=== PATIENT | male | born 1950 | race Caucasian/White ===

== ENCOUNTER 2018-05-05 20:36 | Emergency (ER) | payer MEDICARE, MEDICAID, SELFPAY ==
[2018-05-05 20:39] VITALS: BP 140/85; PULSE 97; RESP 18; TEMP 36.7; O2SAT 98
[2018-05-05 22:38] VITALS: BP 138/80; PULSE 90; RESP 18; TEMP 36.8; O2SAT 99
--- NOTE | 2018-05-06 01:16 | W.ED.GENAD ---
Discharge Plan Disposition Patient Disposition: HOME Condition: Good Discharge Details Chief Complaint: GI Bleed Clinical Impression: External hemorrhoid, thrombosed Primary Care Provider: Victorino Hedrick ED Provider: Cecil Cruz Home Meds and New Rx's Prescriptions: New hydrocortisone [Anusol-HC] 2.5 % cream with perineal applicator 1 applic ID DAILY Qty: 30 RF: 0 docusate sodium [Colace] 100 mg capsule 100 mg PO BID Qty: 90 RF: 0 No Action solifenacin [Vesicare] 5 MG tablet 10 mg PO DAILY RF: 0 acetaminophen 325 MG tablet 650 mg PO Q4H PRN RF: 0 acetaminophen-codeine 1 EACH tablet 1 ea PO BID PRNRF: 0 tramadol 50 MG tablet 50 mg PO DAILY PRNRF: 0 aspirin 81 MG tablet,chewable 81 mg PO DAILY RF: 0 tamsulosin 0.4 MG capsule 0.8 mg PO HS RF: 0 glimepiride 4 MG tablet 4 mg PO DAILY RF: 0 cyclobenzaprine 10 MG tablet 10 mg PO Q8H PRN PRNRF: 0 naproxen 500 MG tablet 500 mg PO BID PRNRF: 0 mirabegron [Myrbetriq] 25 MG tablet extended release 24 hr 25 mg PO DAILY RF: 0 Discharge Instructions Instructions: Hemorrhoids (ED) Additional Instructions: Please perform sitz baths as often as possible. Please use the cream as directed. Please take the stool softener as directed. Please drink 8-10 cups of water daily to maintain good hydration status. If you notice any worsening of your symptoms, or any new symptoms such as vomiting, diarrhea, fever, chills, shortness of breath, chest pain, numbness, weakness, or fainting , please return immediately to the emergency department for reevaluation. Please follow up with your primary care provider as soon as possible for reassessment and reevaluation. As always, it was a pleasure participating in your medical care today. Referrals: Victorino Hedrick MD [Primary Care Provider] - Discharge Data Discharge Date/Time-TO BE ENTERED AT DEPARTURE: 05/05/18 22:40 Medical Decision Making This is a pleasant 68-year-old male who presents today for evaluation of a protruding mass from his rectum, as well as a small amount of bright red blood with bowel movements and a burning aching sensation in his rectum. Physical exam shows no signs of rectal prolapse, however he does have a large protruding external thrombosed hemorrhoid the size of the patient's thumb in the 3 o'clock position. It is notably tender. There is no active bleeding, no current bright red blood per rectum. Patient is not on any blood thinners, and had a colonoscopy 10 years ago which was benign at that time. We did discuss risks and benefits of medications, and outpatient follow-up for removal of the hemorrhoid, over the patient has elected to have the procedure done now. A bedside incision and drainage was performed of the hemorrhoid. A large clot the size of a grape was removed without complications. No continued active bleeding. The area was numbed and anesthetized previously with let which was applied for 40 minutes. Patient had no pain during the procedure. He tolerated this well. With no active bleeding, normal vital signs, no signs of significant anemia, no signs of significant melena, large amounts of bright red blood per rectum, or other signs or symptoms suggestive of a GI bleed, and a clear source of his symptoms pain and bleeding being his hemorrhoid I feel he can be safely discharged home with close follow-up with his PCP. He will be given Anusol, recommendation for sitz baths, and Colace for continued stool softening. We discussed red flags for which to return, and the patient understands. I have extensively reviewed the treatment plan and discharge instructions with the patient. I have addressed all patient concerns at this time. The patient was made aware of what symptoms to monitor for that would warrant a return to the emergency department. Discussed the plan with the patient, they demonstrate verbal understanding and agreement with our assessment and plan at this time. HPI General Date/Time Provider Initiated Documentation: 05/05/18 22:28. HPI Narrative: This is a 68-year-old male with no significant past medical history except for diabetes, who presents today for evaluation of rectal bleeding. The patient states that about a week ago he was at a concert/event in [place], where he was very dehydrated and had an extremely hard firm bowel movement few days later. Since then he has noticed a very large protruding hemorrhoid coming from his rectum. He had no significant problems with this except for yesterday during a bowel movement he noticed a sharp pain, and then noticed some bright red blood, that was notably worse today with a repeat bowel movement. He is not on any blood thinners, he denies any melanotic stool. He denies any abdominal pain, nausea, vomiting, or diarrhea. He does admit to occasional hard stool still. Last colonoscopy was 10 years ago. Patient does admit to a history of hemorrhoids in the past, but not this bad before. He states that currently the area back there is very painful, and achy. He denies any recent surgeries. He denies any IV or illicit drug use. He has no other complaints at this time. Related Data Home Medications Medication Instructions Recorded Confirmed glimepiride 4 mg PO DAILY 03/03/14 05/06/18 tamsulosin 0.8 mg PO HS 03/03/14 05/06/18 cyclobenzaprine 10 mg PO Q8H PRN PRN 04/16/14 05/06/18 naproxen 500 mg PO BID PRN 10/29/16 05/06/18 mirabegron [Myrbetriq] 25 mg PO DAILY 08/09/17 05/06/18 solifenacin [Vesicare] 10 mg PO DAILY tab-cap 12/10/17 05/06/18 acetaminophen 650 mg PO Q4H PRN tab-cap 01/10/18 05/06/18 acetaminophen-codeine 1 ea PO BID PRN tab 01/10/18 05/06/18 tramadol 50 mg PO DAILY PRN tab 01/10/18 05/06/18 aspirin 81 mg PO DAILY tab.chew 01/15/18 05/06/18 docusate sodium [Colace] 100 mg PO BID #90 cap 05/05/18 05/06/18 hydrocortisone [Anusol-HC] 1 applic ID DAILY #30 gm 05/05/18 05/06/18 Previous Rx's Medication Instructions Recorded docusate sodium [Colace] 100 mg PO BID #90 cap 05/05/18 hydrocortisone [Anusol-HC] 1 applic ID DAILY #30 gm 05/05/18 Allergies Allergy/AdvReac Type Severity Reaction Status Date / Time No Known Allergies Allergy Unverified 05/06/18 20:59 General Stated Complaint: GI Bleed ALFRED: 3 Review of Systems Review of Systems All systems reviewed & are unremarkable except as noted in HPI and below PFSH Medical History Abdominal bloating Anxiety Bladder outlet obstruction Depression Diabetes mellitus, type 2 Diabetes mellitus, type II Entrapment of left ulnar nerve Fatigue History of knee replacement Hx of carpal tunnel syndrome Leukopenia Low back pain Lumbar herniated disc Myofascial pain syndrome Physical deconditioning Seborrheic keratosis Spinal stenosis Spinal stenosis, cervical region Urinary retention Social History Smoking/Tobacco Use Status: Never Surgical History Endoscopic Carpal Tunnel release (11/24/12) Laminectomy, release of tethered cord Replacement of total knee joint Rotator Cuff Repair (08/12/01) Tonsillectomy Ulnar Nerve Transposition (11/24/12) Exam Narrative Exam Narrative: 1.Const: Well-nourished, Well-developed, appearing stated age 2.Eyes: PERRL, no conjunctival injection, and symmetrical lids. No conjunctival pallor 3.ENT: Atraumatic external nose and ears. Moist MM. Neck: Symmetric, trachea midline, No thyromegaly. 4.CVS: +S1/S2, no evidence of tachycardia no murmurs or gallops. Peripheral pulses 2+ and equal in all extremities. Brisk capillary refill in all extremities. 5.RESP: Unlabored respiratory effort. Clear to auscultation bilaterally. No wheezes rales or rhonchi 6.GI: Soft, Nontender/Nondistended, No hepatosplenomegaly. No guarding or rebound. 7.MSK: Normocephalic/Atraumatic, Extremities w/o deformity or ttp No cyanosis or clubbing, Normal movement of all extremities 8.Skin: Warm, Dry. No rashes or lesions. 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 Sensation grossly intact, no focal neurologic deficits. 10.Psych: (AAO) x3. Appropriate mood and affect Rectal exam demonstrates a large thrombosed external hemorrhoid at the 3 o'clock position. It is tender. Rectal exam demonstrates no significant tenderness or hemorrhoid internally. No tenesmus. No bright red blood per rectum. Some old dried blood noted from around the hemorrhoid. Course Vital Signs Temperature 36.7 C 05/05/18 20:39 Pulse 97 H 05/05/18 20:39 Respiratory Rate 18 05/05/18 20:39 Blood Pressure 140/85 05/05/18 20:39 Pulse Oximetry 98 05/05/18 20:39 Temperature 36.8 C 05/05/18 22:38 Temperature Source Skin 05/05/18 20:39 Pulse 90 05/05/18 22:38 Respiratory Rate 18 05/05/18 22:38 Respiratory Effort Non-Labored 05/05/18 20:48 Blood Pressure 138/80 05/05/18 22:38 Blood Pressure Position Sitting 05/05/18 20:39 Pulse Oximetry 99 05/05/18 22:38 Oxygen Delivery Method Room Air 05/05/18 20:39 Oxygen Flow Rate 0 05/05/18 20:39 Pain Level 2 05/05/18 20:39
--- NOTE | 2018-05-06 01:19 | ED.GENADUL_ITS ---
Discharge Plan Disposition Patient Disposition: HOME Condition: Good Discharge Details Chief Complaint: GI Bleed Clinical Impression: External hemorrhoid, thrombosed Primary Care Provider: Victorino Hedrick ED Provider: Cecil Cruz Home Meds and New Rx's Prescriptions: New hydrocortisone [Anusol-HC] 2.5 % cream with perineal applicator 1 applic [place] DAILY Qty: 30 RF: 0 docusate sodium [Colace] 100 mg capsule 100 mg PO BID Qty: 90 RF: 0 No Action solifenacin [Vesicare] 5 MG tablet 10 mg PO DAILY RF: 0 acetaminophen 325 MG tablet 650 mg PO Q4H PRN RF: 0 acetaminophen-codeine 1 EACH tablet 1 ea PO BID PRNRF: 0 tramadol 50 MG tablet 50 mg PO DAILY PRNRF: 0 aspirin 81 MG tablet,chewable 81 mg PO DAILY RF: 0 tamsulosin 0.4 MG capsule 0.8 mg PO HS RF: 0 glimepiride 4 MG tablet 4 mg PO DAILY RF: 0 cyclobenzaprine 10 MG tablet 10 mg PO Q8H PRN PRNRF: 0 naproxen 500 MG tablet 500 mg PO BID PRNRF: 0 mirabegron [Myrbetriq] 25 MG tablet extended release 24 hr 25 mg PO DAILY RF: 0 Discharge Instructions Instructions: Hemorrhoids (ED) Additional Instructions: Please perform sitz baths as often as possible. Please use the cream as directed. Please take the stool softener as directed. Please drink 8-10 cups of water daily to maintain good hydration status. If you notice any worsening of your symptoms, or any new symptoms such as vomiting, diarrhea, fever, chills , shortness of breath, chest pain, numbness, weakness, or fainting , please return immediately to the emergency department for reevaluation. Please follow up with your primary care provider as soon as possible for reassessment and reevaluation. As always, it was a pleasure participating in your medical care today. Referrals: Victorino Hedrick MD [Primary Care Provider] - Discharge Data Discharge Date/Time-TO BE ENTERED AT DEPARTURE: 05/05/18 22:40 Medical Decision Making This is a pleasant 68-year-old male who presents today for evaluation of a protruding mass from his rectum, as well as a small amount of bright red blood with bowel movements and a burning aching sensation in his rectum. Physical exam shows no signs of rectal prolapse, however he does have a large protruding external thrombosed hemorrhoid the size of the patient's thumb in the 3 o'clock position. It is notably tender. There is no active bleeding, no current bright red blood per rectum. Patient is not on any blood thinners, and had a colonoscopy 10 years ago which was benign at that time. We did discuss risks and benefits of medications, and outpatient follow-up for removal of the hemorrhoid, over the patient has elected to have the procedure done now. A bedside incision and drainage was performed of the hemorrhoid. A large clot the size of a grape was removed without complications. No continued active bleeding. The area was numbed and anesthetized previously with let which was applied for 40 minutes. Patient had no pain during the procedure. He tolerated this well. With no active bleeding, normal vital signs, no signs of significant anemia, no signs of significant melena, large amounts of bright red blood per rectum, or other signs or symptoms suggestive of a GI bleed, and a clear source of his symptoms pain and bleeding being his hemorrhoid I feel he can be safely discharged home with close follow-up with his PCP. He will be given Anusol, recommendation for sitz baths, and Colace for continued stool softening. We discussed red flags for which to return, and the patient understands. I have extensively reviewed the treatment plan and discharge instructions with the patient. I have addressed all patient concerns at this time. The patient was made aware of what symptoms to monitor for that would warrant a return to the emergency department. Discussed the plan with the patient, they demonstrate verbal understanding and agreement with our assessment and plan at this time. HPI General Date/Time Provider Initiated Documentation: 05/05/18 22:28 . HPI Narrative: This is a 68-year-old male with no significant past medical history except for diabetes, who presents today for evaluation of rectal bleeding. The patient states that about a week ago he was at a concert/ event in [place], where he was very dehydrated and had an extremely hard firm bowel movement few days later. Since then he has noticed a very large protruding hemorrhoid coming from his rectum. He had no significant problems with this except for yesterday during a bowel movement he noticed a sharp pain, and then noticed some bright red blood, that was notably worse today with a repeat bowel movement. He is not on any blood thinners, he denies any melanotic stool. He denies any abdominal pain, nausea, vomiting, or diarrhea. He does admit to occasional hard stool still. Last colonoscopy was 10 years ago. Patient does admit to a history of hemorrhoids in the past, but not this bad before. He states that currently the area back there is very painful, and achy. He denies any recent surgeries. He denies any IV or illicit drug use. He has no other complaints at this time. Related Data Home Medications Medication Instructions Recorded Confirmed glimepiride 4 mg PO DAILY 03/03/14 05/06/18 tamsulosin 0.8 mg PO HS 03/03/14 05/06/18 cyclobenzaprine 10 mg PO Q8H PRN PRN 04/16/14 05/06/18 naproxen 500 mg PO BID PRN 10/29/16 05/06/18 mirabegron [Myrbetriq] 25 mg PO DAILY 08/09/17 05/06/18 solifenacin [Vesicare] 10 mg PO DAILY tab-cap 12/10/17 05/06/18 acetaminophen 650 mg PO Q4H PRN tab-cap 01/10/18 05/06/18 acetaminophen-codeine 1 ea PO BID PRN tab 01/10/18 05/06/18 tramadol 50 mg PO DAILY PRN tab 01/10/18 05/06/18 aspirin 81 mg PO DAILY tab.chew 01/15/18 05/06/18 docusate sodium [Colace] 100 mg PO BID #90 cap 05/05/18 05/06/18 hydrocortisone [Anusol-HC] 1 applic [place] DAILY #30 gm 05/05/18 05/06/18 Previous Rx's Medication Instructions Recorded docusate sodium [Colace] 100 mg PO BID #90 cap 05/05/18 hydrocortisone [Anusol-HC] 1 applic [place] DAILY #30 gm 05/05/18 Allergies Allergy/AdvReac Type Severity Reaction Status Date / Time No Known Allergies Allergy Unverified 05/06/18 20:59 General Stated Complaint: GI Bleed ALFRED: 3 Review of Systems Review of Systems All systems reviewed & are unremarkable except as noted in HPI and below PFSH Medical History Abdominal bloating Anxiety Bladder outlet obstruction Depression Diabetes mellitus, type 2 Diabetes mellitus, type II Entrapment of left ulnar nerve Fatigue History of knee replacement Hx of carpal tunnel syndrome Leukopenia Low back pain Lumbar herniated disc Myofascial pain syndrome Physical deconditioning Seborrheic keratosis Spinal stenosis Spinal stenosis, cervical region Urinary retention Social History Smoking/Tobacco Use Status: Never Surgical History Endoscopic Carpal Tunnel release (11/24/12) Laminectomy, release of tethered cord Replacement of total knee joint Rotator Cuff Repair (08/12/01) Tonsillectomy Ulnar Nerve Transposition (11/24/12) Exam Narrative Exam Narrative: 1.Const: Well-nourished, Well-developed, appearing stated age 2.Eyes: PERRL, no conjunctival injection, and symmetrical lids. No conjunctival pallor 3.ENT: Atraumatic external nose and ears. Moist MM. Neck: Symmetric, trachea midline, No thyromegaly. 4.CVS: +S1/S2, no evidence of tachycardia no murmurs or gallops. Peripheral pulses 2+ and equal in all extremities. Brisk capillary refill in all extremities. 5.RESP: Unlabored respiratory effort. Clear to auscultation bilaterally. No wheezes rales or rhonchi 6.GI: Soft, Nontender/Nondistended, No hepatosplenomegaly. No guarding or rebound. 7.MSK: Normocephalic/Atraumatic, Extremities w/o deformity or ttp No cyanosis or clubbing, Normal movement of all extremities 8.Skin: Warm, Dry. No rashes or lesions. 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 Sensation grossly intact, no focal neurologic deficits. 10.Psych: (AAO) x3. Appropriate mood and affect Rectal exam demonstrates a large thrombosed external hemorrhoid at the 3 o' clock position. It is tender. Rectal exam demonstrates no significant tenderness or hemorrhoid internally. No tenesmus. No bright red blood per rectum. Some old dried blood noted from around the hemorrhoid. Course Vital Signs Temperature 36.7 C 05/05/18 20:39 Pulse 97 H 05/05/18 20:39 Respiratory Rate 18 05/05/18 20:39 Blood Pressure 140/85 05/05/18 20:39 Pulse Oximetry 98 05/05/18 20:39 Temperature 36.8 C 05/05/18 22:38 Temperature Source Skin 05/05/18 20:39 Pulse 90 05/05/18 22:38 Respiratory Rate 18 05/05/18 22:38 Respiratory Effort Non-Labored 05/05/18 20:48 Blood Pressure 138/80 05/05/18 22:38 Blood Pressure Position Sitting 05/05/18 20:39 Pulse Oximetry 99 05/05/18 22:38 Oxygen Delivery Method Room Air 05/05/18 20:39 Oxygen Flow Rate 0 05/05/18 20:39 Pain Level 2 05/05/18 20:39
== END 2018-05-05 22:40 | disposition home or self-care (01) ==
PROVIDERS: Emergency Provider Student in an Organized Health Care Education/Training Program; PCP Internal Medicine
DX: K64.5 Perianal venous thrombosis (principal); E11.9 Type 2 diabetes mellitus without complications; Z79.84 Long term (current) use of oral hypoglycemic drugs
CPT/HCPCS: 10140

== ENCOUNTER 2018-05-06 20:54 | Emergency (ER) | payer MEDICARE, MEDICAID, SELFPAY ==
[2018-05-06 20:57] VITALS: PULSE 94; RESP 18; TEMP 37.1; O2SAT 98
--- NOTE | 2018-05-06 21:09 | W.ED.GENAD ---
Discharge Plan Disposition Patient Disposition: HOME Condition: Good Discharge Details Chief Complaint: Recheck Clinical Impression: Hemorrhoid Primary Care Provider: Victorino Hedrick ED Provider: Cecil Cruz Home Meds and New Rx's Prescriptions: No Action solifenacin [Vesicare] 5 MG tablet 10 mg PO DAILY RF: 0 acetaminophen 325 MG tablet 650 mg PO Q4H PRN RF: 0 acetaminophen-codeine 1 EACH tablet 1 ea PO BID PRNRF: 0 tramadol 50 MG tablet 50 mg PO DAILY PRNRF: 0 aspirin 81 MG tablet,chewable 81 mg PO DAILY RF: 0 tamsulosin 0.4 MG capsule 0.8 mg PO HS RF: 0 glimepiride 4 MG tablet 4 mg PO DAILY RF: 0 cyclobenzaprine 10 MG tablet 10 mg PO Q8H PRN PRNRF: 0 naproxen 500 MG tablet 500 mg PO BID PRNRF: 0 mirabegron [Myrbetriq] 25 MG tablet extended release 24 hr 25 mg PO DAILY RF: 0 hydrocortisone [Anusol-HC] 2.5 % cream with perineal applicator 1 applic SC DAILY Qty: 30 RF: 0 docusate sodium [Colace] 100 mg capsule 100 mg PO BID Qty: 90 RF: 0 Discharge Instructions Instructions: Hemorrhoids (ED), Rectal Bleeding (ED) Additional Instructions: Please use the Surgicel as directed. Please follow-up with your primary care provider as soon as possible for reassessment. If you notice any worsening of your symptoms, or any new symptoms such as vomiting, diarrhea, fever, chills, shortness of breath, chest pain, numbness, weakness, or fainting , please return immediately to the emergency department for reevaluation. Please follow up with your primary care provider as soon as possible for reassessment and reevaluation. As always, it was a pleasure participating in your medical care today. Referrals: Victorino Hedrick MD [Primary Care Provider] - Medical Decision Making This is a 68-year-old male with medical history significant for a recently incised thrombosed hemorrhoid. He had some very mild continued bleeding since then. No hemorrhage. No evidence of active bleeding on my exam. The patient continues to demonstrate normal vital signs, no tachycardia, no evidence of pale conjunctiva, no signs of significant anemia. We will get the patient Surgicel for home use, and some more 4 x 4's, and continue recommendation for follow-up with his PCP, as well as continued use of the prescribed steroid cream. We discussed red flags which return the patient understands. I have extensively reviewed the treatment plan and discharge instructions with the patient. I have addressed all patient concerns at this time. The patient was made aware of what symptoms to monitor for that would warrant a return to the emergency department. Discussed the plan with the patient, they demonstrate verbal understanding and agreement with our assessment and plan at this time. HPI General Date/Time Provider Initiated Documentation: 05/06/18 21:01. HPI Narrative: This is a very pleasant 68-year-old male with past medical history of hypertension, constipation, who presents today for reevaluation of hemorrhoid. Patient was here in the emergency department last night, with a very large painful thrombosed hemorrhoid. Bedside incision and drainage was performed and a very large clot was exuded. Patient was then discharged home with pads, gauze, and instructions for follow-up. Throughout the day he has had a very mild continued amount of subtle bleeding. He called the ER this evening, and wanted to know if he should be checked out or not. We recommended for him to come in for evaluation. He denies any lightheadedness, syncope, fainting, fatigue, significant bleeding, hemorrhage, or clots. Bleeding was only noticed on the small amount of 4 x 4 pads he had placed back there. He states that his pain is completely resolved at this point. The patient does take aspirin, but does not take any other blood thinners. Patient denies any recent surgeries, he denies any pertinent family history, he denies any IV or illicit drug use. He has no other complaints at this time. Related Data Home Medications Medication Instructions Recorded Confirmed glimepiride 4 mg PO DAILY 03/03/14 05/06/18 tamsulosin 0.8 mg PO HS 03/03/14 05/06/18 cyclobenzaprine 10 mg PO Q8H PRN PRN 04/16/14 05/06/18 naproxen 500 mg PO BID PRN 10/29/16 05/06/18 mirabegron [Myrbetriq] 25 mg PO DAILY 08/09/17 05/06/18 solifenacin [Vesicare] 10 mg PO DAILY tab-cap 12/10/17 05/06/18 acetaminophen 650 mg PO Q4H PRN tab-cap 01/10/18 05/06/18 acetaminophen-codeine 1 ea PO BID PRN tab 01/10/18 05/06/18 tramadol 50 mg PO DAILY PRN tab 01/10/18 05/06/18 aspirin 81 mg PO DAILY tab.chew 01/15/18 05/06/18 docusate sodium [Colace] 100 mg PO BID #90 cap 05/05/18 05/06/18 hydrocortisone [Anusol-HC] 1 applic SC DAILY #30 gm 05/05/18 05/06/18 Previous Rx's Medication Instructions Recorded docusate sodium [Colace] 100 mg PO BID #90 cap 05/05/18 hydrocortisone [Anusol-HC] 1 applic SC DAILY #30 gm 05/05/18 Allergies Allergy/AdvReac Type Severity Reaction Status Date / Time No Known Allergies Allergy Unverified 05/06/18 20:59 General Stated Complaint: Recheck ALFRED: 5 Review of Systems Review of Systems 10 point review of systems was performed, pertinent positives and negatives are noted in the history of present illness. PFSH Medical History Abdominal bloating Anxiety Bladder outlet obstruction Depression Diabetes mellitus, type 2 Diabetes mellitus, type II Entrapment of left ulnar nerve Fatigue History of knee replacement Hx of carpal tunnel syndrome Leukopenia Low back pain Lumbar herniated disc Myofascial pain syndrome Physical deconditioning Seborrheic keratosis Spinal stenosis Spinal stenosis, cervical region Urinary retention Social History Smoking/Tobacco Use Status: Never Surgical History Endoscopic Carpal Tunnel release (11/24/12) Laminectomy, release of tethered cord Replacement of total knee joint Rotator Cuff Repair (08/12/01) Tonsillectomy Ulnar Nerve Transposition (11/24/12) Exam Narrative Exam Narrative: 1.Const: Well-nourished, Well-developed, appearing stated age 2.Eyes: PERRL, no conjunctival injection, no evidence of pale conjunctiva, and symmetrical lids. 3.ENT: Atraumatic external nose and ears. Moist MM. Neck: Symmetric, trachea midline, No thyromegaly. 4.CVS: +S1/S2, No murmurs or gallops. No evidence of tachycardia peripheral pulses 2+ and equal in all extremities. Brisk capillary refill in all extremities. 5.RESP: Unlabored respiratory effort. Clear to auscultation bilaterally. No wheezes rales or rhonchi 6.GI: Soft, Nontender/Nondistended, No hepatosplenomegaly. No guarding or rebound. 7.MSK: Normocephalic/Atraumatic, Extremities w/o deformity or ttp No cyanosis or clubbing, Normal movement of all extremities 8.Skin: Warm, Dry. No rashes or lesions. 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 Sensation grossly intact, no focal neurologic deficits. 10.Psych: (AAO) x3. Appropriate mood and affect Rectal exam demonstrates evidence of a previously incised and drained hemorrhoid, no active bleeding. No evidence of bleeding at this time. Some dried blood noted on the 4 x 4 pads on the patient's rectal area. No tenderness. Course Vital Signs Temperature 37.1 C 05/06/18 20:57 Pulse 94 H 05/06/18 20:57 Respiratory Rate 18 05/06/18 20:57 Pulse Oximetry 98 05/06/18 20:57 Temperature 37.1 C 05/06/18 20:57 Temperature Source Temporal Artery Scan 05/06/18 20:57 Pulse 94 H 05/06/18 20:57 Respiratory Rate 18 05/06/18 20:57 Pulse Oximetry 98 05/06/18 20:57 Oxygen Delivery Method Room Air 05/06/18 20:57 Oxygen Flow Rate 0 05/06/18 20:57 End Tidal Co2 145 05/06/18 20:57 Pain Level 0 05/06/18 20:57
--- NOTE | 2018-05-06 21:18 | ED.GENADUL_ITS ---
Discharge Plan Disposition Patient Disposition: HOME Condition: Good Discharge Details Chief Complaint: Recheck Clinical Impression: Hemorrhoid Primary Care Provider: Victorino Hedrick ED Provider: Cecil Cruz Home Meds and New Rx's Prescriptions: No Action solifenacin [Vesicare] 5 MG tablet 10 mg PO DAILY RF: 0 acetaminophen 325 MG tablet 650 mg PO Q4H PRN RF: 0 acetaminophen-codeine 1 EACH tablet 1 ea PO BID PRNRF: 0 tramadol 50 MG tablet 50 mg PO DAILY PRNRF: 0 aspirin 81 MG tablet,chewable 81 mg PO DAILY RF: 0 tamsulosin 0.4 MG capsule 0.8 mg PO HS RF: 0 glimepiride 4 MG tablet 4 mg PO DAILY RF: 0 cyclobenzaprine 10 MG tablet 10 mg PO Q8H PRN PRNRF: 0 naproxen 500 MG tablet 500 mg PO BID PRNRF: 0 mirabegron [Myrbetriq] 25 MG tablet extended release 24 hr 25 mg PO DAILY RF: 0 hydrocortisone [Anusol-HC] 2.5 % cream with perineal applicator 1 applic CO DAILY Qty: 30 RF: 0 docusate sodium [Colace] 100 mg capsule 100 mg PO BID Qty: 90 RF: 0 Discharge Instructions Instructions: Hemorrhoids (ED), Rectal Bleeding (ED) Additional Instructions: Please use the Surgicel as directed. Please follow-up with your primary care provider as soon as possible for reassessment. If you notice any worsening of your symptoms, or any new symptoms such as vomiting, diarrhea, fever, chills, shortness of breath, chest pain, numbness, weakness, or fainting , please return immediately to the emergency department for reevaluation. Please follow up with your primary care provider as soon as possible for reassessment and reevaluation. As always, it was a pleasure participating in your medical care today. Referrals: Victorino Hedrick MD [Primary Care Provider] - Medical Decision Making This is a 68-year-old male with medical history significant for a recently incised thrombosed hemorrhoid. He had some very mild continued bleeding since then. No hemorrhage. No evidence of active bleeding on my exam. The patient continues to demonstrate normal vital signs, no tachycardia, no evidence of pale conjunctiva, no signs of significant anemia. We will get the patient Surgicel for home use, and some more 4 x 4's, and continue recommendation for follow-up with his PCP, as well as continued use of the prescribed steroid cream. We discussed red flags which return the patient understands. I have extensively reviewed the treatment plan and discharge instructions with the patient. I have addressed all patient concerns at this time. The patient was made aware of what symptoms to monitor for that would warrant a return to the emergency department. Discussed the plan with the patient, they demonstrate verbal understanding and agreement with our assessment and plan at this time. HPI General Date/Time Provider Initiated Documentation: 05/06/18 21:01 . HPI Narrative: This is a very pleasant 68-year-old male with past medical history of hypertension, constipation, who presents today for reevaluation of hemorrhoid. Patient was here in the emergency department last night, with a very large painful thrombosed hemorrhoid. Bedside incision and drainage was performed and a very large clot was exuded. Patient was then discharged home with pads, gauze, and instructions for follow-up. Throughout the day he has had a very mild continued amount of subtle bleeding. He called the ER this evening, and wanted to know if he should be checked out or not. We recommended for him to come in for evaluation. He denies any lightheadedness, syncope, fainting, fatigue, significant bleeding, hemorrhage, or clots. Bleeding was only noticed on the small amount of 4 x 4 pads he had placed back there. He states that his pain is completely resolved at this point. The patient does take aspirin, but does not take any other blood thinners. Patient denies any recent surgeries, he denies any pertinent family history, he denies any IV or illicit drug use. He has no other complaints at this time. Related Data Home Medications Medication Instructions Recorded Confirmed glimepiride 4 mg PO DAILY 03/03/14 05/06/18 tamsulosin 0.8 mg PO HS 03/03/14 05/06/18 cyclobenzaprine 10 mg PO Q8H PRN PRN 04/16/14 05/06/18 naproxen 500 mg PO BID PRN 10/29/16 05/06/18 mirabegron [Myrbetriq] 25 mg PO DAILY 08/09/17 05/06/18 solifenacin [Vesicare] 10 mg PO DAILY tab-cap 12/10/17 05/06/18 acetaminophen 650 mg PO Q4H PRN tab-cap 01/10/18 05/06/18 acetaminophen-codeine 1 ea PO BID PRN tab 01/10/18 05/06/18 tramadol 50 mg PO DAILY PRN tab 01/10/18 05/06/18 aspirin 81 mg PO DAILY tab.chew 01/15/18 05/06/18 docusate sodium [Colace] 100 mg PO BID #90 cap 05/05/18 05/06/18 hydrocortisone [Anusol-HC] 1 applic CO DAILY #30 gm 05/05/18 05/06/18 Previous Rx's Medication Instructions Recorded docusate sodium [Colace] 100 mg PO BID #90 cap 05/05/18 hydrocortisone [Anusol-HC] 1 applic CO DAILY #30 gm 05/05/18 Allergies Allergy/AdvReac Type Severity Reaction Status Date / Time No Known Allergies Allergy Unverified 05/06/18 20:59 General Stated Complaint: Recheck ALFRED: 5 Review of Systems Review of Systems 10 point review of systems was performed, pertinent positives and negatives are noted in the history of present illness. PFSH Medical History Abdominal bloating Anxiety Bladder outlet obstruction Depression Diabetes mellitus, type 2 Diabetes mellitus, type II Entrapment of left ulnar nerve Fatigue History of knee replacement Hx of carpal tunnel syndrome Leukopenia Low back pain Lumbar herniated disc Myofascial pain syndrome Physical deconditioning Seborrheic keratosis Spinal stenosis Spinal stenosis, cervical region Urinary retention Social History Smoking/Tobacco Use Status: Never Surgical History Endoscopic Carpal Tunnel release (11/24/12) Laminectomy, release of tethered cord Replacement of total knee joint Rotator Cuff Repair (08/12/01) Tonsillectomy Ulnar Nerve Transposition (11/24/12) Exam Narrative Exam Narrative: 1.Const: Well-nourished, Well-developed, appearing stated age 2.Eyes: PERRL, no conjunctival injection, no evidence of pale conjunctiva, and symmetrical lids. 3.ENT: Atraumatic external nose and ears. Moist MM. Neck: Symmetric, trachea midline, No thyromegaly. 4.CVS: +S1/S2, No murmurs or gallops. No evidence of tachycardia peripheral pulses 2+ and equal in all extremities. Brisk capillary refill in all extremities. 5.RESP: Unlabored respiratory effort. Clear to auscultation bilaterally. No wheezes rales or rhonchi 6.GI: Soft, Nontender/Nondistended, No hepatosplenomegaly. No guarding or rebound. 7.MSK: Normocephalic/Atraumatic, Extremities w/o deformity or ttp No cyanosis or clubbing, Normal movement of all extremities 8.Skin: Warm, Dry. No rashes or lesions. 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 Sensation grossly intact, no focal neurologic deficits. 10.Psych: (AAO) x3. Appropriate mood and affect Rectal exam demonstrates evidence of a previously incised and drained hemorrhoid , no active bleeding. No evidence of bleeding at this time. Some dried blood noted on the 4 x 4 pads on the patient's rectal area. No tenderness. Course Vital Signs Temperature 37.1 C 05/06/18 20:57 Pulse 94 H 05/06/18 20:57 Respiratory Rate 18 05/06/18 20:57 Pulse Oximetry 98 05/06/18 20:57 Temperature 37.1 C 05/06/18 20:57 Temperature Source Temporal Artery Scan 05/06/18 20:57 Pulse 94 H 05/06/18 20:57 Respiratory Rate 18 05/06/18 20:57 Pulse Oximetry 98 05/06/18 20:57 Oxygen Delivery Method Room Air 05/06/18 20:57 Oxygen Flow Rate 0 05/06/18 20:57 End Tidal Co2 145 05/06/18 20:57 Pain Level 0 05/06/18 20:57
[2018-05-06 21:57] VITALS: PULSE 94; RESP 18; TEMP 37.1; O2SAT 98
[2018-05-06] MEDS: Cellulose,Oxidized 2X3 PKT 5 EACH MC (21:57)
== END 2018-05-06 21:59 | disposition home or self-care (01) ==
PROVIDERS: Emergency Provider Student in an Organized Health Care Education/Training Program; PCP Internal Medicine
DX: K64.9 Unspecified hemorrhoids (principal); Y84.8 Other medical procedures as the cause of abnormal reaction of the patient, or of later complication, without mention of misadventure at the time of the procedure; E11.9 Type 2 diabetes mellitus without complications; Z79.84 Long term (current) use of oral hypoglycemic drugs; I10 Essential (primary) hypertension
CPT/HCPCS: 99282

== ENCOUNTER 2018-06-26 00:35 | Outpatient (CLI) | payer MEDICARE, MEDICAID, SELFPAY ==
--- NOTE | 2018-06-26 15:04 | DI.MRI_ITS ---
SYMPTOM/DIAGNOSIS: BACK PAIN, SPONDYLOSIS, S/P TETHERED CORD REPAIR LUMBAR SPINE MRI: Comparison is made with 02/22/14. Noncontrast MRI of the lumbar spine was performed. The conus medullaris is unchanged and terminates at the L 4 level. This is unchanged compared to the prior examination. There does again appear to be a fatty filum terminale. At L 5-S 1, there is no focal disc herniation, central spinal canal or neural foraminal stenosis present. At L 4-5, there is again seen mild spondylolisthesis present. There is disc desiccation. There is a small central disc herniation. There are post surgical changes of an L 4 laminectomy. Moderately severe central spinal canal stenosis is present. There does appear to be some displacement of the L 5 nerve roots bilaterally. There is bilateral mild to moderate neural foraminal stenosis. At L 3-4, there is disc desiccation. Endplate degenerative changes and osteophytes are present. There is a disc herniation extruding posterior to the L 4 vertebral body. It does appear to compress the L 4 nerve roots bilaterally. There is a diffuse disc bulge and hypertrophic changes of the facets seen. There is mild narrowing of the central spinal canal. There is moderate bilateral neural foraminal stenosis. At L 2-3, there is degenerative disc disease with endplate osteophytes and endplate degenerative signal changes. Mild narrowing of the central spinal canal is noted. No significant neural foraminal stenosis is seen. At L 1-2. there is no focal disc herniation, central spinal canal or neural foraminal stenosis. Incidental note is made of bilateral renal parapelvic cysts. These were present on ultrasound of the abdomen from 10/14/17. Apart from the degenerative signal change, marrow signal is within normal limits. IMPRESSION: 1. Disc herniation at L 3-4 with extrusion posterior to the L 4 vertebral body compressing the L 4 nerve roots bilaterally. 2. Degenerative changes at L 4-5 causing central spinal canal and neural foraminal stenosis. 3. Multi level degenerative changes in the lumbar spine as described above. 4. Post laminectomy changes at L 4, stable. Location of the conus medullaris posterior to the L 4 vertebral body.
== END 2018-06-26 00:55 ==
PROVIDERS: PCP Internal Medicine; Visit Provider Anesthesiology Pain Medicine
DX: M54.5 Low back pain (principal); M51.16 Intervertebral disc disorders with radiculopathy, lumbar region; M51.36 Other intervertebral disc degeneration, lumbar region; M48.061 Spinal stenosis, lumbar region without neurogenic claudication
CPT/HCPCS: 72148

== ENCOUNTER 2018-07-17 17:15 | Outpatient (REF) | payer MEDICARE, MEDICAID, SELFPAY ==
[2018-07-17 22:44] LABS: Anion Gap 6.1 mmol/L (3-11); BUN 17 mg/dL (7-18); CO2 28.9 mmol/L (21.0-32.0); CREATININE 0.95 mg/dL (0.70-1.30); Calcium 8.7 mg/dL (8.5-10.1); Chloride 103 mmol/L (98-107); Cholesterol 220 mg/dL (50-200); Glucose 140 mg/dL (70-100); HDL Cholesterol 40 mg/dL (40-60); LDL CHOLESTEROL 157 mg/dL (<100); Sodium 138 mmol/L (136-145); Triglyceride 237 mg/dL (30-150)
[2018-07-19 11:25] LABS: Hepatitis C Ab w Rflx HCV PCR Negative (NEGAT)
== END 2018-07-17 17:35 ==
LOC: NCHCN 17:15
PROVIDERS: PCP Internal Medicine; Visit Provider Internal Medicine
DX: E11.9 Type 2 diabetes mellitus without complications (principal); I10 Essential (primary) hypertension; Z11.59 Encounter for screening for other viral diseases
CPT/HCPCS: 80048; 80061; 83721; 86803

== ENCOUNTER 2018-07-27 19:27 | Emergency (ER) | payer MEDICARE, MEDICAID, SELFPAY ==
[2018-07-27 19:35] VITALS: BP 139/79; PULSE 87; RESP 16; TEMP 37.1; O2SAT 100
--- NOTE | 2018-07-27 19:59 | W.ED.GENAD ---
Discharge Plan Disposition Patient Disposition: HOME Condition: Stable Discharge Details Chief Complaint: RashLesion Clinical Impression: Shingles rash Primary Care Provider: Victorino Hedrick ED Provider: John Marcum Home Meds and New Rx's Prescriptions: New acyclovir 800 mg tablet 800 mg PO 5X/DAY 7 Days Qty: 35 RF: 0 Continued Vesicare 5 MG tablet 10 mg PO DAILY RF: 0 acetaminophen 325 MG tablet 650 mg PO Q4H PRN RF: 0 tramadol 50 MG tablet 50 mg PO DAILY PRNRF: 0 aspirin 81 MG tablet,chewable 81 mg PO DAILY RF: 0 tamsulosin 0.4 MG capsule 0.8 mg PO HS RF: 0 glimepiride 4 MG tablet 4 mg PO DAILY RF: 0 cyclobenzaprine 10 MG tablet 10 mg PO Q8H PRN PRNRF: 0 naproxen 500 MG tablet 500 mg PO BID PRNRF: 0 Myrbetriq 25 MG tablet extended release 24 hr 25 mg PO DAILY RF: 0 hydrocortisone [Anusol-HC] 2.5 % cream with perineal applicator 1 applic [place] DAILY Qty: 30 RF: 0 Discharge Instructions Instructions: Shingles (ED) Additional Instructions: Return to the emergency department for any new or worsening symptoms such as fever chills, rapid spread of rash diffusely throughout your body, new or significant worsening of your symptoms. Otherwise take antiviral medication until gone and you may use topical calamine lotion as needed Referrals: Victorino Hedrick MD [Primary Care Provider] - (As needed for reassessment or if not improving over the next week) Medical Decision Making Patient presenting to the emergency department chief complaint of burning sensation to left lower leg. Patient states that he is using a space heater today and noticed some discomfort on his left calf. When patient went to put on his socks he noticed some redness and blistering. Patient denies any discomfort to right leg and denies any direct contact with space heater or any severe pain that occurred. He states just a mild burning sensation. Physical exam shows a vesicular rash in approximately the L3 distribution pattern of the left lower externally with erythematous vesicles that is otherwise non-erythematous surrounding remainder of skin. Patient's presentation is more consistent with shingles given urine and unilaterally and in nerve root pattern. Area of redness and irritation is not consistent with burn and small space heater especially given that it is on patient's thigh and calf with no connecting area of erythema that would be more suggestive of burn. Physical exam is otherwise unremarkable. Patient was placed on acyclovir and encouraged to continue to monitor rash return for any new or worsening symptoms otherwise to follow-up with his primary care provider as needed. After discussion of diagnosis and plan of care patient has no further needs, questions, or concerns and states clear understanding to return to the emergency department for any worsening symptoms. HPI General Mode of arrival: ambulatory. Date/Time Provider Initiated Documentation: 07/27/18 19:59. Limitations to Documentation: no limitations. Information obtained by: patient and RN notes reviewed. History of Present Illness 68 year old M presents to the emergency department with the chief complaint of Left leg burn vs rash, described as mild, with intensity rated at 2. Quality is described as burning, and is localized to the left and lower extremity. Patient started experiencing this day(s) (1) and it has been constant. No relieving factors improve symptom(s), No exacerbating factors reported . Patient notes no other symptoms.. Patient did receive the following treatments prior to arrival, none Related Data Home Medications Medication Instructions Recorded Confirmed glimepiride 4 mg PO DAILY 03/03/14 07/27/18 tamsulosin 0.8 mg PO HS 03/03/14 07/27/18 cyclobenzaprine 10 mg PO Q8H PRN PRN 04/16/14 07/27/18 naproxen 500 mg PO BID PRN 10/29/16 07/27/18 Myrbetriq 25 mg PO DAILY 08/09/17 07/27/18 Vesicare 10 mg PO DAILY tab-cap 12/10/17 07/27/18 acetaminophen 650 mg PO Q4H PRN tab-cap 01/10/18 07/27/18 tramadol 50 mg PO DAILY PRN tab 01/10/18 07/27/18 aspirin 81 mg PO DAILY tab.chew 01/15/18 07/27/18 hydrocortisone [Anusol-HC] 1 applic OR DAILY #30 gm 05/05/18 07/27/18 acyclovir 800 mg PO 5X/DAY 7 Days #35 tab 07/27/18 Previous Rx's Medication Instructions Recorded hydrocortisone [Anusol-HC] 1 applic OR DAILY #30 gm 05/05/18 acyclovir 800 mg PO 5X/DAY 7 Days #35 tab 07/27/18 Allergies Allergy/AdvReac Type Severity Reaction Status Date / Time No Known Allergies Allergy Unverified 07/27/18 19:41 General Stated Complaint: RashLesion ALFRED: 3 Review of Systems Constitutional Denies body ache(s), Denies chills and Denies fever(s) Cardiovascular Denies chest pain and Denies dyspnea Respiratory Denies dyspnea Gastrointestinal Denies abdominal pain, Denies nausea and Denies vomiting Integumentary/Breasts Reports as per HPI and Reports rash Neurologic Denies confusion and Denies sensory deficit Psychiatric Denies confusion [facility] Medical History Abdominal bloating Anxiety Bladder outlet obstruction Depression Diabetes mellitus, type 2 Diabetes mellitus, type II Entrapment of left ulnar nerve Fatigue History of knee replacement Hx of carpal tunnel syndrome Leukopenia Low back pain Lumbar herniated disc Myofascial pain syndrome Physical deconditioning Seborrheic keratosis Spinal stenosis Spinal stenosis, cervical region Urinary retention Surgical History Endoscopic Carpal Tunnel release (11/24/12) Laminectomy, release of tethered cord Replacement of total knee joint Rotator Cuff Repair (08/12/01) Tonsillectomy Ulnar Nerve Transposition (11/24/12) Social History Smoking/Tobacco Use Status: Never Exam Const General: cooperative, no acute distress and not ill appearing Orientation: alert, awake and oriented x3 HENMT Mouth: moist mucous membranes Resp Effort & Inspection: normal respiratory effort, able to speak in complete sentences and no respiratory distress Cardio Rate: regular rate Rhythm: regular rhythm Skin Rashes: rashes noted (Vesicular erythematous rash on patient's left inner leg down to the calf ) Trauma: no lacerations or abrasions Neuro General: alert, awake, oriented x3, moves all extremities and no focal motor deficits Sensory Exam: no sensory deficits noted Course Vital Signs Temperature 37.1 C 07/27/18 19:35 Pulse 87 07/27/18 19:35 Respiratory Rate 16 07/27/18 19:35 Blood Pressure 139/79 07/27/18 19:35 Pulse Oximetry 100 07/27/18 19:35 Temperature 37.1 C 07/27/18 19:35 Temperature Source Temporal Artery Scan 07/27/18 19:35 Pulse 87 07/27/18 19:35 Respiratory Rate 16 07/27/18 19:35 Respiratory Effort Non-Labored 07/27/18 19:39 Blood Pressure 139/79 07/27/18 19:35 Blood Pressure Position Sitting 07/27/18 19:35 Pulse Oximetry 100 07/27/18 19:35 Oxygen Delivery Method Room Air 07/27/18 19:35 Oxygen Flow Rate 0 07/27/18 19:35 Pain Level 2 07/27/18 19:35
--- NOTE | 2018-07-27 20:09 | ED.GENADUL_ITS ---
Discharge Plan Disposition Patient Disposition: HOME Condition: Stable Discharge Details Chief Complaint: RashLesion Clinical Impression: Shingles rash Primary Care Provider: Victorino Hedrick ED Provider: John Marcum Home Meds and New Rx's Prescriptions: New acyclovir 800 mg tablet 800 mg PO 5X/DAY 7 Days Qty: 35 RF: 0 Continued Vesicare 5 MG tablet 10 mg PO DAILY RF: 0 acetaminophen 325 MG tablet 650 mg PO Q4H PRN RF: 0 tramadol 50 MG tablet 50 mg PO DAILY PRNRF: 0 aspirin 81 MG tablet,chewable 81 mg PO DAILY RF: 0 tamsulosin 0.4 MG capsule 0.8 mg PO HS RF: 0 glimepiride 4 MG tablet 4 mg PO DAILY RF: 0 cyclobenzaprine 10 MG tablet 10 mg PO Q8H PRN PRNRF: 0 naproxen 500 MG tablet 500 mg PO BID PRNRF: 0 Myrbetriq 25 MG tablet extended release 24 hr 25 mg PO DAILY RF: 0 hydrocortisone [Anusol-HC] 2.5 % cream with perineal applicator 1 applic [place] DAILY Qty: 30 RF: 0 Discharge Instructions Instructions: Shingles (ED) Additional Instructions: Return to the emergency department for any new or worsening symptoms such as fever chills, rapid spread of rash diffusely throughout your body, new or significant worsening of your symptoms. Otherwise take antiviral medication until gone and you may use topical calamine lotion as needed Referrals: Victorino Hedrick MD [Primary Care Provider] - (As needed for reassessment or if not improving over the next week) Medical Decision Making Patient presenting to the emergency department chief complaint of burning sensation to left lower leg. Patient states that he is using a space heater today and noticed some discomfort on his left calf. When patient went to put on his socks he noticed some redness and blistering. Patient denies any discomfort to right leg and denies any direct contact with space heater or any severe pain that occurred. He states just a mild burning sensation. Physical exam shows a vesicular rash in approximately the L3 distribution pattern of the left lower externally with erythematous vesicles that is otherwise non-erythematous surrounding remainder of skin. Patient's presentation is more consistent with shingles given urine and unilaterally and in nerve root pattern. Area of redness and irritation is not consistent with burn and small space heater especially given that it is on patient's thigh and calf with no connecting area of erythema that would be more suggestive of burn. Physical exam is otherwise unremarkable. Patient was placed on acyclovir and encouraged to continue to monitor rash return for any new or worsening symptoms otherwise to follow-up with his primary care provider as needed. After discussion of diagnosis and plan of care patient has no further needs, questions, or concerns and states clear understanding to return to the emergency department for any worsening symptoms. HPI General Mode of arrival: ambulatory . Date/Time Provider Initiated Documentation: 07/27/18 19:59 . Limitations to Documentation: no limitations . Information obtained by: patient and RN notes reviewed . History of Present Illness 68 year old M presents to the emergency department with the chief complaint of Left leg burn vs rash, described as mild, with intensity rated at 2. Quality is described as burning, and is localized to the left and lower extremity. Patient started experiencing this day(s) (1) and it has been constant. No relieving factors improve symptom(s), No exacerbating factors reported . Patient notes no other symptoms.. Patient did receive the following treatments prior to arrival, none Related Data Home Medications Medication Instructions Recorded Confirmed glimepiride 4 mg PO DAILY 03/03/14 07/27/18 tamsulosin 0.8 mg PO HS 03/03/14 07/27/18 cyclobenzaprine 10 mg PO Q8H PRN PRN 04/16/14 07/27/18 naproxen 500 mg PO BID PRN 10/29/16 07/27/18 Myrbetriq 25 mg PO DAILY 08/09/17 07/27/18 Vesicare 10 mg PO DAILY tab-cap 12/10/17 07/27/18 acetaminophen 650 mg PO Q4H PRN tab-cap 01/10/18 07/27/18 tramadol 50 mg PO DAILY PRN tab 01/10/18 07/27/18 aspirin 81 mg PO DAILY tab.chew 01/15/18 07/27/18 hydrocortisone [Anusol-HC] 1 applic NE DAILY #30 gm 05/05/18 07/27/18 acyclovir 800 mg PO 5X/DAY 7 Days #35 tab 07/27/18 Previous Rx's Medication Instructions Recorded hydrocortisone [Anusol-HC] 1 applic NE DAILY #30 gm 05/05/18 acyclovir 800 mg PO 5X/DAY 7 Days #35 tab 07/27/18 Allergies Allergy/AdvReac Type Severity Reaction Status Date / Time No Known Allergies Allergy Unverified 07/27/18 19:41 General Stated Complaint: RashLesion ALFRED: 3 Review of Systems Constitutional Denies body ache(s), Denies chills and Denies fever(s) Cardiovascular Denies chest pain and Denies dyspnea Respiratory Denies dyspnea Gastrointestinal Denies abdominal pain, Denies nausea and Denies vomiting Integumentary/Breasts Reports as per HPI and Reports rash Neurologic Denies confusion and Denies sensory deficit Psychiatric Denies confusion [facility] Medical History Abdominal bloating Anxiety Bladder outlet obstruction Depression Diabetes mellitus, type 2 Diabetes mellitus, type II Entrapment of left ulnar nerve Fatigue History of knee replacement Hx of carpal tunnel syndrome Leukopenia Low back pain Lumbar herniated disc Myofascial pain syndrome Physical deconditioning Seborrheic keratosis Spinal stenosis Spinal stenosis, cervical region Urinary retention Surgical History Endoscopic Carpal Tunnel release (11/24/12) Laminectomy, release of tethered cord Replacement of total knee joint Rotator Cuff Repair (08/12/01) Tonsillectomy Ulnar Nerve Transposition (11/24/12) Social History Smoking/Tobacco Use Status: Never Exam Const General: cooperative, no acute distress and not ill appearing Orientation: alert, awake and oriented x3 HENMT Mouth: moist mucous membranes Resp Effort & Inspection: normal respiratory effort, able to speak in complete sentences and no respiratory distress Cardio Rate: regular rate Rhythm: regular rhythm Skin Rashes: rashes noted (Vesicular erythematous rash on patient's left inner leg down to the calf ) Trauma: no lacerations or abrasions Neuro General: alert, awake, oriented x3, moves all extremities and no focal motor deficits Sensory Exam: no sensory deficits noted Course Vital Signs Temperature 37.1 C 07/27/18 19:35 Pulse 87 07/27/18 19:35 Respiratory Rate 16 07/27/18 19:35 Blood Pressure 139/79 07/27/18 19:35 Pulse Oximetry 100 07/27/18 19:35 Temperature 37.1 C 07/27/18 19:35 Temperature Source Temporal Artery Scan 07/27/18 19:35 Pulse 87 07/27/18 19:35 Respiratory Rate 16 07/27/18 19:35 Respiratory Effort Non-Labored 07/27/18 19:39 Blood Pressure 139/79 07/27/18 19:35 Blood Pressure Position Sitting 07/27/18 19:35 Pulse Oximetry 100 07/27/18 19:35 Oxygen Delivery Method Room Air 07/27/18 19:35 Oxygen Flow Rate 0 07/27/18 19:35 Pain Level 2 07/27/18 19:35
[2018-07-27] MEDS: Acyclovir 400 MG TAB 800 MG PO (20:11)
[2018-07-27] MEDS: Acyclovir 400 MG TAB 1600 MG PO (20:11)
[2018-07-27 20:20] VITALS: BP 139/79; PULSE 87; RESP 16; TEMP 37.1; O2SAT 100
== END 2018-07-27 20:20 | disposition home or self-care (01) ==
PROVIDERS: Emergency Provider Nurse Practitioner Family; PCP Internal Medicine
DX: B02.9 Zoster without complications (principal)
CPT/HCPCS: 99283

== ENCOUNTER 2018-09-24 12:35 | Outpatient (CLI) | payer MEDICARE, MEDICAID, SELFPAY ==
[2018-09-24 12:48] VITALS: BP 120/68; PULSE 92; RESP 18; TEMP 37.1; O2SAT 100
[2018-09-24] MEDS: Omnipaque 240 MG/ML 50 ML BTL IJ (13:30)
[2018-09-24] MEDS: methylPREDNISolone ACETATE 40 MG/ML VIAL IJ (13:37)
--- NOTE | 2018-09-24 13:39 | DI.RAD_ITS ---
SYMPTOMS/DIAGNOSIS: LUMBAR RADICULOPATHY PAIN CLINIC: Fluoroscopy Time: 20 sec 8.03 mGy Images submitted from the pain clinic demonstrate a needle positioned over the right lateral portion of the body of L 5 in conjunction with an injection carried out by Dr. Isbell. Please see the procedure report for further information.
[2018-09-24 13:40] VITALS: BP 140/83; PULSE 88; RESP 18; O2SAT 100
--- NOTE | 2018-09-24 13:47 | PDOC.PAIN_ITS ---
Pain Clinic Procedure Note Current Active Problems Problem Status Onset Lumbar post-laminectomy syndrome Acute EPIDURAL STEROID WITH CATHETER INJECTION PROCEDURE NOTE COMMENTS: Patient is status post lumbar laminectomy chronic low back pain with radiation to the right lower extremity. He has had multiple radiofrequency ablations and epidural steroid injections. His last radiofrequency ablation did not help significantly. He had a facet injection to help minimally. ELLIOTT CROWLEY has been referred to the [facility] for lumbar epidural steroid injection. Patient was greeted by the nurse who verified patients name and . Patient was then taken to the fluoroscopy suite. Patient was interviewed and the medical record reviewed. There were no medical, pharmacologic, radiographic, or other structural contraindications to attempting fluoroscopically guided lumbar epidural steroid injection. Risks and expected side effects as well as potential benefits of the procedure were reviewed and voiced concerns addressed. The patient consent form was signed and witnessed. Standard time-out procedure was performed. Patient was placed in the prone position on the fluoroscopy table and automated blood pressure cuff and pulse oximeter applied. The skin entry point for ente ring/approaching the epidural space by a {sacral hiatus} and marked. Following thorough chlorhexadine preparation of the skin and draping and 1% lidocaine infiltration of the skin entry point and subcutaneous tissues, a 17 gauge Touhy needle was placed under fluoroscopic guidance and with loss of resistance technique into the epidural space. Needle tip placement and depth were aided and confirmed by fluoroscopy. There was no paresthesia or return of blood or CSF through the needle. An Arrow cath was thread to the {L5 right of midline} and 1 cc's of Omnipaque 240 was injected with clear epidural spread confirmed with fluoroscopy. 60mg depomedrol was injected. There was not any unusual discomfort expressed. Vital signs were stable throughout the procedure and were as recorded in nursing records. Follow up plans and appointments were discussed.Post procedure instruction was given as documented in nursing records and having met discharge criteria and was discharged from the [facility]. COMMENTS: Patient will follow-up as needed. Points of pain over his sacrum. Would consider right SI joint injection relief from this. I would have him come in to be examined prior to that. If the pain is mostly radicular I would consider transforaminal injection at the L 4?5 or L5-S1 level on the right.
== END 2018-09-24 12:55 ==
PROVIDERS: PCP Internal Medicine; Visit Provider Anesthesiology Pain Medicine
DX: M54.5 Low back pain (principal); M96.1 Postlaminectomy syndrome, not elsewhere classified; G89.29 Other chronic pain
CPT/HCPCS: 62323; 72100; J1030; Q9967

== ENCOUNTER → 2018-12-09 11:00 | Outpatient (BNVA) | payer MEDICARE, MEDICAID, SELFPAY | PROVIDERS: PCP Internal Medicine; Visit Provider Orthopaedic Surgery | DX: Z47.1 Aftercare following joint replacement surgery (principal); Z96.652 Presence of left artificial knee joint; R26.89 Other abnormalities of gait and mobility; R25.1 Tremor, unspecified | CPT/HCPCS: 99211; 99213 ==

== ENCOUNTER 2018-12-30 22:49 | Emergency (ER) | payer MEDICARE, MEDICAID, SELFPAY ==
[2018-12-30 22:53] VITALS: BP 160/76; PULSE 85; RESP 16; TEMP 36.6; O2SAT 99
--- NOTE | 2018-12-30 23:06 | W.ED.GENAD ---
Discharge Plan Disposition Patient Disposition: HOME Condition: Stable Discharge Details Chief Complaint: Urinary Clinical Impression: Cystitis with hematuria Primary Care Provider: Victorino Hedrick ED Provider: John Marcum Home Meds and New Rx's Prescriptions: New nitrofurantoin monohyd/m-cryst 100 mg capsule 100 mg PO BID Qty: 13 RF: 0 Continued Vesicare 5 MG tablet 10 mg PO DAILY RF: 0 acetaminophen 325 MG tablet 650 mg PO Q4H PRN RF: 0 tramadol 50 MG tablet 50 mg PO DAILY PRNRF: 0 tamsulosin 0.4 MG capsule 0.8 mg PO HS RF: 0 glimepiride 4 MG tablet 4 mg PO DAILY RF: 0 cyclobenzaprine 10 MG tablet 10 mg PO Q8H PRN PRNRF: 0 naproxen 500 MG tablet 500 mg PO BID PRNRF: 0 Myrbetriq 25 MG tablet extended release 24 hr 25 mg PO DAILY RF: 0 hydrocortisone [Anusol-HC] 2.5 % cream with perineal applicator 1 applic [place] DAILY Qty: 30 RF: 0 Discharge Instructions Instructions: Urinary Tract Infection in Men (ED), Catheter-associated Urinary Tract Infection (ED) Additional Instructions: Please take antibiotics as prescribed until fully complete. You should follow-up with your urologist tomorrow and inform them of your symptoms. Otherwise stay well-hydrated and return to the emergency department immediately for any new or significant worsening of symptoms or further concerns. Otherwise if not improving by the end of your antibiotic she should follow-up with your primary care provider or urologist. Referrals: Victorino Hedrick MD [Primary Care Provider] - (If not improving or as needed for reassessment) Medical Decision Making Patient presenting to the emergency department for chief complaint of hematuria and painful urination. Patient states yesterday he had a urodynamics test done at [facility] for his ongoing urinary problems and had typical postprocedure symptoms which resolved by that evening. Patient states then today approximately 24 hours after the procedure he noted some sharp stinging and burning with urination, urinary frequency, and urinary urgency. Then just before coming to the emergency department he noted some hematuria. He states he has never had this before after the procedure which he has had done multiple times. Physical exam is unremarkable with no CVA tenderness, stable nontoxic patient. Plan to check urinalysis for concern of post procedure infection versus postprocedural cystitis. Review of urinalysis shows significant red blood cells, leukocyte esterase. Given significant number of red blood cells not able to fully perform microscopic analysis but given concern for infection patient was placed upon Macrobid. Patient was informed that he should follow-up with his urologist tomorrow. After discussion of diagnosis and plan of care patient has no further needs, questions, or concerns and states clear understanding to return to the emergency department for any worsening symptoms. HPI General Mode of arrival: ambulatory. Date/Time Provider Initiated Documentation: 12/30/18 22:49. Limitations to Documentation: no limitations. Information obtained by: patient and RN notes reviewed. History of Present Illness 68 year old M presents to the emergency department with the chief complaint of Hematuria, described as mild, with intensity rated at 1. Quality is described as burning, and is localized to the genitals. Patient started experiencing this hour(s) (7) and it has been intermittent. No relieving factors improve symptom(s), Patient notes no other symptoms.. Patient did receive the following treatments prior to arrival, none Related Data Home Medications Medication Instructions Recorded Confirmed glimepiride 4 mg PO DAILY 03/03/14 12/30/18 tamsulosin 0.8 mg PO HS 03/03/14 12/30/18 cyclobenzaprine 10 mg PO Q8H PRN PRN 04/16/14 12/30/18 naproxen 500 mg PO BID PRN 10/29/16 12/30/18 Myrbetriq 25 mg PO DAILY 08/09/17 12/30/18 Vesicare 10 mg PO DAILY tab-cap 12/10/17 12/30/18 acetaminophen 650 mg PO Q4H PRN tab-cap 01/10/18 12/30/18 tramadol 50 mg PO DAILY PRN tab 01/10/18 12/30/18 hydrocortisone [Anusol-HC] 1 applic [place] DAILY #30 gm 05/05/18 12/30/18 nitrofurantoin monohyd/m-cryst 100 mg PO BID #13 cap 12/30/18 Previous Rx's Medication Instructions Recorded hydrocortisone [Anusol-HC] 1 applic UT DAILY #30 gm 05/05/18 nitrofurantoin monohyd/m-cryst 100 mg PO BID #13 cap 12/30/18 Allergies Allergy/AdvReac Type Severity Reaction Status Date / Time No Known Allergies Allergy Unverified 12/30/18 22:53 General Stated Complaint: Urinary ALFRED: 4 Review of Systems Constitutional Denies body ache(s), Denies chills, Denies fever(s), Denies malaise and Denies weakness Cardiovascular Denies chest pain Respiratory Reports system reviewed and no additional complaints, except as docu Gastrointestinal Denies abdominal pain, Denies nausea and Denies vomiting Genitourinary Reports as per HPI, Reports hematuria, Reports dysuria, Denies flank pain, Reports urinary frequency, Reports urinary urgency and Reports other (Change in urine color) Neurologic Denies confusion and Denies weakness Psychiatric Denies confusion PFSH Social History Smoking/Tobacco Use Status: Never Drug use: Never Do you feel safe at home: Yes Do you feel safe in your relationship?: Yes Exam Const General: cooperative and no acute distress Orientation: alert, awake and oriented x3 Resp Effort & Inspection: normal respiratory effort and able to speak in complete sentences Auscultation: clear to auscultation bilaterally Cardio Rate: regular rate Rhythm: regular rhythm Heart Sounds: S1 normal and S2 normal GI Palpation: nontender Back/Spine/Pelvis Back: no CVA tenderness Neuro General: alert, awake and oriented x3 Extrem General: normal capillary refill Course Vital Signs Temperature 36.6 C 12/30/18 22:53 Pulse 85 12/30/18 22:53 Respiratory Rate 16 12/30/18 22:53 Blood Pressure 160/76 H 12/30/18 22:53 Pulse Oximetry 99 12/30/18 22:53 Temperature 36.6 C 12/30/18 22:53 Temperature Source Temporal Artery Scan 12/30/18 22:53 Pulse 85 12/30/18 22:53 Respiratory Rate 16 12/30/18 22:53 Respiratory Effort 12/30/18 22:53 Blood Pressure 160/76 H 12/30/18 22:53 Pulse Oximetry 99 12/30/18 22:53 Oxygen Delivery Method Room Air 12/30/18 22:53 Oxygen Flow Rate 0 12/30/18 22:53 Pain Level 1 12/30/18 22:53
--- NOTE | 2018-12-30 23:09 | ED.GENADUL_ITS ---
Discharge Plan Disposition Patient Disposition: HOME Condition: Stable Discharge Details Chief Complaint: Urinary Clinical Impression: Cystitis with hematuria Primary Care Provider: Victorino Hedrick ED Provider: John Marcum Home Meds and New Rx's Prescriptions: New nitrofurantoin monohyd/m-cryst 100 mg capsule 100 mg PO BID Qty: 13 RF: 0 Continued Vesicare 5 MG tablet 10 mg PO DAILY RF: 0 acetaminophen 325 MG tablet 650 mg PO Q4H PRN RF: 0 tramadol 50 MG tablet 50 mg PO DAILY PRNRF: 0 tamsulosin 0.4 MG capsule 0.8 mg PO HS RF: 0 glimepiride 4 MG tablet 4 mg PO DAILY RF: 0 cyclobenzaprine 10 MG tablet 10 mg PO Q8H PRN PRNRF: 0 naproxen 500 MG tablet 500 mg PO BID PRNRF: 0 Myrbetriq 25 MG tablet extended release 24 hr 25 mg PO DAILY RF: 0 hydrocortisone [Anusol-HC] 2.5 % cream with perineal applicator 1 applic [place] DAILY Qty: 30 RF: 0 Discharge Instructions Instructions: Urinary Tract Infection in Men (ED), Catheter-associated Urinary Tract Infection (ED) Additional Instructions: Please take antibiotics as prescribed until fully complete. You should follow- up with your urologist tomorrow and inform them of your symptoms. Otherwise stay well-hydrated and return to the emergency department immediately for any new or significant worsening of symptoms or further concerns. Otherwise if not improving by the end of your antibiotic she should follow-up with your primary care provider or urologist. Referrals: Victorino Hedrick MD [Primary Care Provider] - (If not improving or as needed for reassessment) Medical Decision Making Patient presenting to the emergency department for chief complaint of hematuria and painful urination. Patient states yesterday he had a urodynamics test done at [facility] for his ongoing urinary problems and had typical postprocedure symptoms which resolved by that evening. Patient states then today approximately 24 hours after the procedure he noted some sharp stinging and burn ing with urination, urinary frequency, and urinary urgency. Then just before coming to the emergency department he noted some hematuria. He states he has never had this before after the procedure which he has had done multiple times. Physical exam is unremarkable with no CVA tenderness, stable nontoxic patient. Plan to check urinalysis for concern of post procedure infection versus postprocedural cystitis. Review of urinalysis shows significant red blood cells, leukocyte esterase. Given significant number of red blood cells not able to fully perform microscopic analysis but given concern for infection patient was placed upon Macrobid. Patient was informed that he should follow-up with his urologist tomorrow. After discussion of diagnosis and plan of care patient has no further needs, questions, or concerns and states clear understanding to return to the emergency department for any worsening symptoms. HPI General Mode of arrival: ambulatory . Date/Time Provider Initiated Documentation: 12/30/18 22:49 . Limitations to Documentation: no limitations . Information obtained by: patient and RN notes reviewed . History of Present Illness 68 year old M presents to the emergency department with the chief complaint of Hematuria, described as mild, with intensity rated at 1. Quality is described as burning, and is localized to the genitals. Patient started experiencing this hour(s) (7) and it has been intermittent. No relieving factors improve symptom(s), Patient notes no other symptoms.. Patient did receive the following treatments prior to arrival, none Related Data Home Medications Medication Instructions Recorded Confirmed glimepiride 4 mg PO DAILY 03/03/14 12/30/18 tamsulosin 0.8 mg PO HS 03/03/14 12/30/18 cyclobenzaprine 10 mg PO Q8H PRN PRN 04/16/14 12/30/18 naproxen 500 mg PO BID PRN 10/29/16 12/30/18 Myrbetriq 25 mg PO DAILY 08/09/17 12/30/18 Vesicare 10 mg PO DAILY tab-cap 12/10/17 12/30/18 acetaminophen 650 mg PO Q4H PRN tab-cap 01/10/18 12/30/18 tramadol 50 mg PO DAILY PRN tab 01/10/18 12/30/18 hydrocortisone [Anusol-HC] 1 applic [place] DAILY #30 gm 05/05/18 12/30/18 nitrofurantoin monohyd/m-cryst 100 mg PO BID #13 cap 12/30/18 Previous Rx's Medication Instructions Recorded hydrocortisone [Anusol-HC] 1 applic [place] DAILY #30 gm 05/05/18 nitrofurantoin monohyd/m-cryst 100 mg PO BID #13 cap 05/21/19 Allergies Allergy/AdvReac Type Severity Reaction Status Date / Time No Known Allergies Allergy Unverified 12/30/18 22:53 General Stated Complaint: Urinary ALFRED: 4 Review of Systems Constitutional Denies body ache(s), Denies chills, Denies fever(s), Denies malaise and Denies weakness Cardiovascular Denies chest pain Respiratory Reports system reviewed and no additional complaints, except as docu Gastrointestinal Denies abdominal pain, Denies nausea and Denies vomiting Genitourinary Reports as per HPI, Reports hematuria, Reports dysuria, Denies flank pain, Reports urinary frequency, Reports urinary urgency and Reports other (Change in urine color) Neurologic Denies confusion and Denies weakness Psychiatric Denies confusion PFSH Social History Smoking/Tobacco Use Status: Never Drug use: Never Do you feel safe at home: Yes Do you feel safe in your relationship?: Yes Exam Const General: cooperative and no acute distress Orientation: alert, awake and oriented x3 Resp Effort & Inspection: normal respiratory effort and able to speak in complete sentences Auscultation: clear to auscultation bilaterally Cardio Rate: regular rate Rhythm: regular rhythm Heart Sounds: S1 normal and S2 normal GI Palpation: nontender Back/Spine/Pelvis Back: no CVA tenderness Neuro General: alert, awake and oriented x3 Extrem General: normal capillary refill Course Vital Signs Temperature 36.6 C 12/30/18 22:53 Pulse 85 12/30/18 22:53 Respiratory Rate 16 12/30/18 22:53 Blood Pressure 160/76 H 12/30/18 22:53 Pulse Oximetry 99 12/30/18 22:53 Temperature 36.6 C 12/30/18 22:53 Temperature Source Temporal Artery Scan 12/30/18 22:53 Pulse 85 12/30/18 22:53 Respiratory Rate 16 12/30/18 22:53 Respiratory Effort 12/30/18 22:53 Blood Pressure 160/76 H 12/30/18 22:53 Pulse Oximetry 99 12/30/18 22:53 Oxygen Delivery Method Room Air 12/30/18 22:53 Oxygen Flow Rate 0 12/30/18 22:53 Pain Level 1 12/30/18 22:53
[2018-12-30 23:15] LABS: Bilirubin Negative (Negative); Blood Large (Negative); Clarity Cloudy; Glucose Negative (Negative); Ketones Negative (Negative); Leukocyte Esterase Moderate (Negative); Nitrite Negative (Negative); Specific Gravity 1.015 (1.005-1.025); pH 6.5 (5-8)
[2018-12-30 23:22] LABS: C & S Indicated? Yes; RBC >50 (0-2)
[2018-12-30] MEDS: MacroBID 100 MG CAP PO (23:40)
== END 2018-12-30 23:49 | disposition home or self-care (01) ==
PROVIDERS: Emergency Provider Nurse Practitioner Family; PCP Internal Medicine
DX: N30.01 Acute cystitis with hematuria (principal); E11.9 Type 2 diabetes mellitus without complications
CPT/HCPCS: 87077; 99283; 81003; 81015; 87086; 87186

== ENCOUNTER 2019-01-06 15:40 | Outpatient (CLI) | payer MEDICARE, MEDICAID, SELFPAY ==
--- NOTE | 2019-01-06 15:56 | DI.US_ITS ---
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 There are apparent multiple parapelvic cysts. There is no definite evidence of pyelonephrosis. The left kidney measures 12 cm. Again demonstrated are apparent left parapelvic cysts versus hydronephrosis. The prevoid bladder contains 64 cc's. Bilateral ureteral jets are demonstrated. Thickening of the bladder wall may be on the basis of suboptimal distension. SUMMARY: Findings consistent with bilateral parapelvic cysts. There is no definite evidence of right or left hydronephrosis.
--- NOTE | 2019-01-06 17:35 | DI.VRAD_ITS ---
EXAM: US Retroperitoneal Complete. EXAM DATE/TIME: 01/06/2019 4:09 PM CLINICAL HISTORY: 68 years old, male; Signs and symptoms; Other: Neurogenic bladder, n31.9; Additional info: RT kidney= 11.9cm TECHNIQUE: Imaging protocol: Real-time ultrasound of the retroperitoneum with image documentation. Complete exam. COMPARISON: US RENAL ULTRASOUND(P) 10/14/2017 2:41 PM FINDINGS: Right kidney: There are findings suggestive of small right renal parapelvic cysts. The right kidney is otherwise normal in size, shape, and echotexture. No hydronephrosis. Left kidney: There are findings suggestive of small left renal parapelvic cysts. The left kidney is otherwise normal in size, shape, and echotexture. No hydronephrosis. Aorta: Visualized. Common iliac arteries: Visualized. Inferior vena cava: Not visualized. Bladder: Both ureteral jets were visualized. Wall thickening of the urinary bladder on prevoid imaging may be secondary to underdistention as well as cystitis. The prevoid urinary bladder volume is 64.2 mL. The patient was unable to void. Prostate: The prostate measures 3.2 cm x 2.3 cm x 2.4 cm. IMPRESSION: 1. Urinary bladder wall thickening. This may be secondary to underdistention as well as cystitis. 2. Prevoid urinary bladder volume of 64.2 mL. 3. Findings suggestive of small bilateral renal parapelvic cysts. Dictated and Authenticated by: Ernesto Reynoso MD. Ordering:DIANA Prieto MD
== END 2019-01-06 16:00 ==
PROVIDERS: PCP Internal Medicine; Visit Provider Nurse Practitioner Adult Health
DX: N31.9 Neuromuscular dysfunction of bladder, unspecified (principal); N28.89 Other specified disorders of kidney and ureter
CPT/HCPCS: 76770

== ENCOUNTER 2019-01-06 16:12 | Emergency (ER) | payer MEDICARE, MEDICAID, SELFPAY ==
[2019-01-06 16:18] VITALS: BP 140/63; PULSE 86; RESP 16; TEMP 36.6; O2SAT 98
--- NOTE | 2019-01-06 17:03 | W.ED.GENAD ---
Discharge Plan Disposition Patient Disposition: HOME Discharge Details Chief Complaint: Urinary Clinical Impression: Urinary tract infection Primary Care Provider: Victorino Hedrick ED Provider: Sonu Leavitt Home Meds and New Rx's Prescriptions: New sulfamethoxazole-trimethoprim [Bactrim DS] 800-160 mg tablet 1 tab PO DAILY Qty: 14 RF: 0 Continued Vesicare 5 MG tablet 10 mg PO DAILY RF: 0 acetaminophen 325 MG tablet 650 mg PO Q4H PRN RF: 0 tramadol 50 MG tablet 50 mg PO DAILY PRNRF: 0 tamsulosin 0.4 MG capsule 0.8 mg PO HS RF: 0 glimepiride 4 MG tablet 4 mg PO DAILY RF: 0 cyclobenzaprine 10 MG tablet 10 mg PO Q8H PRN PRNRF: 0 naproxen 500 MG tablet 500 mg PO BID PRNRF: 0 Myrbetriq 25 MG tablet extended release 24 hr 25 mg PO DAILY RF: 0 hydrocortisone [Anusol-HC] 2.5 % cream with perineal applicator 1 applic [place] DAILY Qty: 30 RF: 0 Discontinued nitrofurantoin monohyd/m-cryst 100 mg capsule 100 mg PO BID Qty: 13 RF: 0 Discharge Instructions Instructions: Urinary Tract Infection in Men (ED) Additional Instructions: Please stop taking nitrofurantoin. Please start taking Bactrim and continue full course as prescribed. Please follow-up with your urologist. Call tomorrow and be sure to relay results from urine culture. Please contact your primary care physician to arrange follow-up. Return to the ER for any worsening or new concerning symptoms. Referrals: Victorino Hedrick MD [Primary Care Provider] - Medical Decision Making 68-year-old male presents with chief complaint of persistent dysuria, intermittent hematuria, frequent urination. Of note patient was seen here in the emergency department on 12/30/2018 1 day after urodynamic study with same symptoms and diagnosed with a UTI. Urine culture was obtained at that time. He was instructed to follow-up with his urologist but is yet to be able to connect with [facility] urology. He notes that symptoms have persisted, slightly improved from initial ED visit. Patient is afebrile and without signs of systemic infection. I obtained urine culture results: Urine growing Proteus pernneri that is resistant to ampicillin, cefazolin, nitrofurantoin. It is sensitive to Bactrim as well as fluoroquinolones. Plan to start Bactrim and continue for 7-day course. Patient had outpatient renal ultrasound performed today. Study was interpreted by radiology: IMPRESSION: 1. Urinary bladder wall thickening. This may be secondary to underdistention as well as cystitis. 2. Prevoid urinary bladder volume of 64.2 mL. 3. Findings suggestive of small bilateral renal parapelvic cysts. Results were obtained and discussed with the pt. Plan at this time is to have him follow-up with his urologist. I advised him to call his urologist tomorrow to discuss results. I provided a copy of his renal ultrasound report as well as urine culture. Patient understands importance of timely follow-up and that he should return immediately should have any worsening or new concerning symptoms. HPI General Mode of arrival: ambulatory. Date/Time Provider Initiated Documentation: 01/06/19 16:31. Limitations to Documentation: no limitations. Information obtained by: patient. HPI Narrative: 68-year-old male presents with chief complaint of persistent dysuria, intermittent hematuria, frequent urination. Of note patient was seen here in the emergency department on 12/30/2018 1 day after urodynamic study with same symptoms and diagnosed with a UTI. Urine culture was obtained at that time. He was instructed to follow-up with his urologist but is yet to be able to connect with [facility] urology. He notes that symptoms have persisted, slightly improved from initial ED visit. Currently moderate and no other modifiers. No associated fever. No flank pain. No penile dishcarge. No testicular pain or swelling. Related Data Home Medications Medication Instructions Recorded Confirmed glimepiride 4 mg PO DAILY 03/03/14 01/06/19 tamsulosin 0.8 mg PO HS 03/03/14 01/06/19 cyclobenzaprine 10 mg PO Q8H PRN PRN 04/16/14 01/06/19 naproxen 500 mg PO BID PRN 10/29/16 01/06/19 Myrbetriq 25 mg PO DAILY 08/09/17 01/06/19 Vesicare 10 mg PO DAILY tab-cap 12/10/17 01/06/19 acetaminophen 650 mg PO Q4H PRN tab-cap 01/10/18 01/06/19 tramadol 50 mg PO DAILY PRN tab 01/10/18 01/06/19 hydrocortisone [Anusol-HC] 1 applic [place] DAILY #30 gm 05/05/18 01/06/19 sulfamethoxazole-trimethoprim 1 tab PO DAILY #14 tab 01/06/19 [Bactrim DS] Previous Rx's Medication Instructions Recorded hydrocortisone [Anusol-HC] 1 applic [place] DAILY #30 gm 05/05/18 sulfamethoxazole-trimethoprim 1 tab PO DAILY #14 tab 01/06/19 [Bactrim DS] Allergies Allergy/AdvReac Type Severity Reaction Status Date / Time No Known Allergies Allergy Unverified 01/06/19 16:20 General Stated Complaint: Urinary ALFRED: 4 Review of Systems Review of Systems All systems reviewed & are unremarkable except as noted in HPI and below Constitutional Denies fever(s) PFSH Medical History Diabetes mellitus, type 2 Spinal stenosis, cervical region Anxiety Urinary retention Bladder outlet obstruction Abdominal bloating Depression Diabetes mellitus, type II Entrapment of left ulnar nerve Fatigue History of knee replacement Hx of carpal tunnel syndrome Leukopenia Low back pain Lumbar herniated disc Myofascial pain syndrome Physical deconditioning Seborrheic keratosis Spinal stenosis Surgical History Endoscopic Carpal Tunnel release (11/24/12) Laminectomy, release of tethered cord Replacement of total knee joint Rotator Cuff Repair (08/12/01) Tonsillectomy Ulnar Nerve Transposition (11/24/12) Social History Smoking/Tobacco Use Status: Never Drug use: Never Do you feel safe at home: Yes Do you feel safe in your relationship?: Yes Exam Const General: cooperative and no acute distress HENMT Mouth: moist mucous membranes Eyes Conjunctivae: normal conjunctivae Sclera: normal sclerae Resp Auscultation: clear to auscultation bilaterally, no rales, no rhonchi and no wheezes Cardio Jugular venous pressure: no JVD Rate: regular rate and not tachycardic Rhythm: regular rhythm GI Palpation: soft, not firm, no guarding, no masses, not rigid and nontender Male General Exam: Yes normal external exam Penis: normal penis Meatus: meatus normal Scrotum: scrotum normal Testes: normal Back/Spine/Pelvis Back: no CVA tenderness Skin General skin exam: no rashes or lesions noted Neuro General: alert, awake and tone normal Extrem General: no edema Course Vital Signs Temperature 36.6 C 01/06/19 16:18 Pulse 86 01/06/19 16:18 Respiratory Rate 16 01/06/19 16:18 Blood Pressure 140/63 01/06/19 16:18 Pulse Oximetry 98 01/06/19 16:18 Temperature 36.6 C 01/06/19 16:18 Temperature Source Skin 01/06/19 16:18 Pulse 86 01/06/19 16:18 Respiratory Rate 16 01/06/19 16:18 Respiratory Effort 01/06/19 16:18 Blood Pressure 140/63 01/06/19 16:18 Blood Pressure Position Sitting 01/06/19 16:18 Pulse Oximetry 98 01/06/19 16:18 Oxygen Delivery Method Room Air 01/06/19 16:18 Oxygen Flow Rate 0 01/06/19 16:18 Pain Level 1 01/06/19 16:18
--- NOTE | 2019-01-06 17:06 | ED.GENADUL_ITS ---
Discharge Plan Disposition Patient Disposition: HOME Discharge Details Chief Complaint: Urinary Clinical Impression: Urinary tract infection Primary Care Provider: Victorino Hedrick ED Provider: Sonu Leavitt Home Meds and New Rx's Prescriptions: New sulfamethoxazole-trimethoprim [Bactrim DS] 800-160 mg tablet 1 tab PO DAILY Qty: 14 RF: 0 Continued Vesicare 5 MG tablet 10 mg PO DAILY RF: 0 acetaminophen 325 MG tablet 650 mg PO Q4H PRN RF: 0 tramadol 50 MG tablet 50 mg PO DAILY PRNRF: 0 tamsulosin 0.4 MG capsule 0.8 mg PO HS RF: 0 glimepiride 4 MG tablet 4 mg PO DAILY RF: 0 cyclobenzaprine 10 MG tablet 10 mg PO Q8H PRN PRNRF: 0 naproxen 500 MG tablet 500 mg PO BID PRNRF: 0 Myrbetriq 25 MG tablet extended release 24 hr 25 mg PO DAILY RF: 0 hydrocortisone [Anusol-HC] 2.5 % cream with perineal applicator 1 applic [place] DAILY Qty: 30 RF: 0 Discontinued nitrofurantoin monohyd/m-cryst 100 mg capsule 100 mg PO BID Qty: 13 RF: 0 Discharge Instructions Instructions: Urinary Tract Infection in Men (ED) Additional Instructions: Please stop taking nitrofurantoin. Please start taking Bactrim and continue full course as prescribed. Please follow-up with your urologist. Call tomorrow and be sure to relay results from urine culture. Please contact your primary care physician to arrange follow-up. Return to the ER for any worsening or new concerning symptoms. Referrals: Victorino Hedrick MD [Primary Care Provider] - Medical Decision Making 68-year-old male presents with chief complaint of persistent dysuria, intermittent hematuria, frequent urination. Of note patient was seen here in the emergency department on 12/30/2018 1 day after urodynamic study with same symptoms and diagnosed with a UTI. Urine culture was obtained at that time. He was instructed to follow-up with his urologist but is yet to be able to connect with [facility] urology. He notes that symptoms have persisted, slightly improved from initial ED visit. Patient is afebrile and without signs of systemic infection. I obtained urine culture results: Urine growing Proteus pernneri that is resistant to ampicillin, cefazolin, nitrofurantoin. It is sensitive to Bactrim as well as fluoroquinolones. Plan to start Bactrim and continue for 7-day course. Patient had outpatient renal ultrasound performed today. Study was interpreted by radiology: IMPRESSION: 1. Urinary bladder wall thickening. This may be secondary to underdistention as well as cystitis. 2. Prevoid urinary bladder volume of 64.2 mL. 3. Findings suggestive of small bilateral renal parapelvic cysts. Results were obtained and discussed with the pt. Plan at this time is to have him follow-up with his urologist. I advised him to call his urologist tomorrow to discuss results. I provided a copy of his renal ultrasound report as well as urine culture. Patient understands importance of timely follow-up and that he should return immediately should have any worsening or new concerning symptoms. HPI General Mode of arrival: ambulatory . Date/Time Provider Initiated Documentation: 01/06/19 16:31 . Limitations to Documentation: no limitations . Information obtained by: patient . HPI Narrative: 68-year-old male presents with chief complaint of persistent dysuria, intermittent hematuria, frequent urination. Of note patient was seen here in the emergency department on 12/30/2018 1 day after urodynamic study with same symptoms and diagnosed with a UTI. Urine culture was obtained at that time. He was instructed to follow-up with his urologist but is yet to be able to connect with [facility] urology. He notes that symptoms have persisted, slightly improved from initial ED visit. Currently moderate and no other modifiers. No associated fever. No flank pain. No penile dishcarge. No testicular pain or swelling. Related Data Home Medications Medication Instructions Recorded Confirmed glimepiride 4 mg PO DAILY 03/03/14 01/06/19 tamsulosin 0.8 mg PO HS 03/03/14 01/06/19 cyclobenzaprine 10 mg PO Q8H PRN PRN 04/16/14 01/06/19 naproxen 500 mg PO BID PRN 10/29/16 01/06/19 Myrbetriq 25 mg PO DAILY 08/09/17 01/06/19 Vesicare 10 mg PO DAILY tab-cap 12/10/17 01/06/19 acetaminophen 650 mg PO Q4H PRN tab-cap 01/10/18 01/06/19 tramadol 50 mg PO DAILY PRN tab 01/10/18 01/06/19 hydrocortisone [Anusol-HC] 1 applic [place] DAILY #30 gm 05/05/18 01/06/19 sulfamethoxazole-trimethoprim 1 tab PO DAILY #14 tab 01/06/19 [Bactrim DS] Previous Rx's Medication Instructions Recorded hydrocortisone [Anusol-HC] 1 applic [place] DAILY #30 gm 05/05/18 sulfamethoxazole-trimethoprim 1 tab PO DAILY #14 tab 01/06/19 [Bactrim DS] Allergies Allergy/AdvReac Type Severity Reaction Status Date / Time No Known Allergies Allergy Unverified 01/06/19 16:20 General Stated Complaint: Urinary ALFRED: 4 Review of Systems Review of Systems All systems reviewed & are unremarkable except as noted in HPI and below Constitutional Denies fever(s) PFSH Medical History Diabetes mellitus, type 2 Spinal stenosis, cervical region Anxiety Urinary retention Bladder outlet obstruction Abdominal bloating Depression Diabetes mellitus, type II Entrapment of left ulnar nerve Fatigue History of knee replacement Hx of carpal tunnel syndrome Leukopenia Low back pain Lumbar herniated disc Myofascial pain syndrome Physical deconditioning Seborrheic keratosis Spinal stenosis Surgical History Endoscopic Carpal Tunnel release (11/24/12) Laminectomy, release of tethered cord Replacement of total knee joint Rotator Cuff Repair (08/12/01) Tonsillectomy Ulnar Nerve Transposition (11/24/12) Social History Smoking/Tobacco Use Status: Never Drug use: Never Do you feel safe at home: Yes Do you feel safe in your relationship?: Yes Exam Const General: cooperative and no acute distress HENMT Mouth: moist mucous membranes Eyes Conjunctivae: normal conjunctivae Sclera: normal sclerae Resp Auscultation: clear to auscultation bilaterally, no rales, no rhonchi and no wheezes Cardio Jugular venous pressure: no JVD Rate: regular rate and not tachycardic Rhythm: regular rhythm GI Palpation: soft, not firm, no guarding, no masses, not rigid and nontender Male General Exam: Yes normal external exam Penis: normal penis Meatus: meatus normal Scrotum: scrotum normal Testes: normal Back/Spine/Pelvis Back: no CVA tenderness Skin General skin exam: no rashes or lesions noted Neuro General: alert, awake and tone normal Extrem General: no edema Course Vital Signs Temperature 36.6 C 01/06/19 16:18 Pulse 86 01/06/19 16:18 Respiratory Rate 16 01/06/19 16:18 Blood Pressure 140/63 01/06/19 16:18 Pulse Oximetry 98 01/06/19 16:18 Temperature 36.6 C 01/06/19 16:18 Temperature Source Skin 01/06/19 16:18 Pulse 86 01/06/19 16:18 Respiratory Rate 16 01/06/19 16:18 Respiratory Effort 01/06/19 16:18 Blood Pressure 140/63 01/06/19 16:18 Blood Pressure Position Sitting 01/06/19 16:18 Pulse Oximetry 98 01/06/19 16:18 Oxygen Delivery Method Room Air 01/06/19 16:18 Oxygen Flow Rate 0 01/06/19 16:18 Pain Level 1 01/06/19 16:18
[2019-01-06] MEDS: Sulfameth/Trimeth DS TAB 1 TAB PO (17:11)
[2019-01-06 18:04] VITALS: BP 140/60; PULSE 86; RESP 16; TEMP 36.7; O2SAT 98
== END 2019-01-06 18:11 | disposition home or self-care (01) ==
PROVIDERS: Emergency Provider Student in an Organized Health Care Education/Training Program; PCP Internal Medicine
DX: N39.0 Urinary tract infection, site not specified (principal); R10.30 Lower abdominal pain, unspecified; B96.89 Other specified bacterial agents as the cause of diseases classified elsewhere; E11.22 Type 2 diabetes mellitus with diabetic chronic kidney disease; Z87.440 Personal history of urinary (tract) infections
CPT/HCPCS: 76770; 99283

== ENCOUNTER 2019-01-23 13:57 | Outpatient (REF) | payer MEDICARE, MEDICAID, SELFPAY | END 2019-01-23 14:17 | LOC: LBN 13:57 | PROVIDERS: PCP Internal Medicine; Visit Provider Nurse Practitioner Adult Health | DX: R39.89 Other symptoms and signs involving the genitourinary system (principal) | CPT/HCPCS: 87086 ==

== ENCOUNTER → 2019-01-26 13:01 | Outpatient (BNVA) | payer MEDICARE, MEDICAID, SELFPAY | PROVIDERS: PCP Internal Medicine; Referring Provider Orthopaedic Surgery; Visit Provider Psychiatry & Neurology Neurology | DX: G25.0 Essential tremor (principal); M47.816 Spondylosis without myelopathy or radiculopathy, lumbar region; G62.9 Polyneuropathy, unspecified; Q06.8 Other specified congenital malformations of spinal cord; M54.5 Low back pain | CPT/HCPCS: 99215 ==

== ENCOUNTER → 2019-06-24 08:32 | Outpatient (BNVA) | payer MEDICARE, MEDICAID, SELFPAY | PROVIDERS: PCP Internal Medicine; Referring Provider Internal Medicine; Visit Provider Psychiatry & Neurology Neurology | DX: G62.9 Polyneuropathy, unspecified (principal); M47.816 Spondylosis without myelopathy or radiculopathy, lumbar region; G25.0 Essential tremor; M54.5 Low back pain; Q06.8 Other specified congenital malformations of spinal cord | CPT/HCPCS: 95885; 95908; 99214 ==

== ENCOUNTER 2019-08-18 11:38 | Outpatient (CLI) | payer MEDICARE, MEDICAID, SELFPAY ==
[2019-08-18 11:50] VITALS: BP 123/71; PULSE 96; RESP 18; TEMP 37; O2SAT 99
--- NOTE | 2019-08-18 12:08 | PDOC.PAIN ---
Pain Clinic Procedure Note Procedure Note Procedure Note: INTRA-ARTICULAR SI JOINT INJECTION ELLIOTT CROWLEY has been referred to the [facility] for intra-articular SI joint injection. Dx: disorder of sacrum Patient was interviewed and the medical record reviewed. There were no medical, pharmacologic, radiographic or other structural contraindications to attempting fluoroscopically guided intra-articular SI joint injection. Risks and expected side effects as well as potential benefit of the procedure were reviewed and voiced concerns addressed. The printed consent form was signed and witnessed. Standard time-out procedure was performed. Patient was placed in the prone position on the fluoroscopy table and automated blood pressure cuff and pulse oximeter applied. The skin entry point for approaching right SI joints was identified under the most advantageous fluoroscopic view and marked. Following thorough Chlorhexadine preparation of the skin and draping and 1% lidocaine infiltration of the skin entry point and subcutaneous tissues, a 22 gauge spinal needle was placed under fluoroscopic guidance into right SI joints was identified under the most advantageous fluoroscopic view and marked. Following thorough Chlorhexadine preparation of the skin and draping and 1% lidocaine infiltration of the skin entry point and subcutaneous tissues, a 22 gauge spinal needle was placed under fluoroscopic guidance into right SI joint. Intra-articular placement was confirmed by a clear arthrogram resulting from the injection of 0.25ml Omnipaque 240, 1ml 1% lidocaine, and 40mg Depomedrol were injected intra-articularily with an initial reproduction of a significant component of the usual pain. Vital signs were stable throughout the procedure and were as recorded in the documentation flowsheet by the nursing staff. If given, dosages of intravenous drugs for anxiolysis and analgesia were documented in MAR. Follow up plans and appointments were discussed with the patient. Post procedure instruction was given as documented in nursing documentation and having met discharge criteria, and was discharged from the [facility]. COMMENTS: patient tolerated procedure well. Toshia Wilson Pain Management CC: Victorino Hedrick
[2019-08-18 12:26] VITALS: BP 147/91; PULSE 81; RESP 18; O2SAT 98
--- NOTE | 2019-08-18 12:28 | DI.RAD_ITS ---
EXAM: XR PAIN CLINIC SACROILIAC 2V CLINICAL HISTORY: Dx: Sacroiliac Joint Injection TECHNIQUE: Fluoroscopy was provided for the referring physician for guidance with performing injecti on procedure. COMPARISON: No exams were available for comparison FINDINGS: Please see procedure note for details. Fluoro time: 30.1 seconds
[2019-08-18] MEDS: Omnipaque 240 MG/ML 50 ML BTL IJ (12:35)
[2019-08-18] MEDS: methylPREDNISolone ACETATE 80 MG/ML VIAL IJ (12:36)
== END 2019-08-18 11:58 ==
PROVIDERS: PCP Internal Medicine; Visit Provider Internal Medicine
DX: M53.3 Sacrococcygeal disorders, not elsewhere classified (principal)
CPT/HCPCS: 27096; 72200; J1040; Q9967

== ENCOUNTER 2019-08-27 12:45 | Outpatient (REF) | payer MEDICARE, MEDICAID, SELFPAY ==
[2019-08-27 22:32] LABS: HGB 13.6 g/dL (13.5-17.5); Mean Corpuscular Hemoglobin 31.4 pg (27.0-33.0); Mean Corpuscular Volume 92.4 fL (80-95); Mean Platelet Volume 9.6 fL (8.0-11.0); Platelet Count 171 x1000/uL (130-400); RBC 4.33 m/cumm (4.50-6.00); RBC Distribution Width 12.1 % (11.8-14.1)
[2019-08-27 22:45] LABS: Anion Gap 8.2 mmol/L (3-11); BUN 13 mg/dL (7-18); CO2 26.8 mmol/L (21.0-32.0); CREATININE 0.96 mg/dL (0.70-1.30); Calcium 8.2 mg/dL (8.5-10.1); Calculated LDL 119 mg/dL; Chloride 104 mmol/L (98-107); Cholesterol 181 mg/dL (<200); Glucose 248 mg/dL (74-106); HDL Cholesterol 38 mg/dL (40-60); Potassium 4.3 mmol/L (3.5-5.1); Sodium 139 mmol/L (136-145); Triglyceride 122 mg/dL (<150)
== END 2019-08-27 13:05 ==
LOC: NCHCN 12:45
PROVIDERS: PCP Internal Medicine; Visit Provider Internal Medicine
DX: E78.6 Lipoprotein deficiency (principal); R53.83 Other fatigue; F32.9 Major depressive disorder, single episode, unspecified; M54.5 Low back pain
CPT/HCPCS: 80048; 80061; 85027

== ENCOUNTER 2019-09-16 11:58 | Outpatient (CLI) | payer MEDICARE, MEDICAID, SELFPAY ==
[2019-09-16 12:11] VITALS: BP 126/70; PULSE 99; RESP 18; TEMP 37.2; O2SAT 94
--- NOTE | 2019-09-16 12:25 | PDOC.PAIN ---
Pain Clinic Procedure Note Procedure Note Procedure Note: LUMBAR / SACRAL TRANSFORAMINAL INJECTION ELLIOTT CROWLEY has been referred to the [facility] for a transforaminal nerve root block and steroid injection. COMMENTS: patient underwent right SI joint injection which provided minimal pain relief. he continues to have a localized area of pain over right lower back, some radiation down right leg, difficult standing up straight, on NCS/EMG there is evidence of chronic right L4 and L5 nerve irritation. Patient was interviewed and the medical record reviewed. There were no medical, pharmacologic, radiographic or other structural contraindications to attempting fluoroscopically guided transforaminal nerve root block and epidural steroid injection. Risks and expected side effects as well as potential benefit of the procedure were reviewed and voiced concerns addressed. The printed consent form was signed and witnessed. Standard time-out procedure was performed. Patient was placed in the prone position on the fluoroscopy table and automated blood pressure cuff and pulse oximeter applied. Fluoroscopy was utilized to identify the right neural foramen between L4 and L5 . A skin bogdan was made for the needle insertion site. A Chlorhexadine prep was carried out, and sterile drapes were applied. Local anesthesia was achieved in the skin and subcutaneous tissues. A 22 gauge 5'' spinal needle was then inserted, advanced with fluoroscopic guidance into the neural foramen, confirmed on the lateral view. After negative aspiration, 1 ml of Omnipaque 240 was injected confirming position in A/P and lateral views. This showed a good spread of dye transforaminally into the epidural space. There was no vascular update with contrast injection under continuous fluoroscopy and digital substraction. 10 mg of Dexamethasone was injected, followed by 1 ml of 1% Xylocaine flush for the nerve root block, as well. There was no unusual discomfort expressed.The needle was withdrawn. The patient tolerated the procedure well. A Band-Aid was applied. Vital signs were stable throughout the procedure and were as recorded in nursing records. If given, dosages of intravenous drugs for anxiolysis and analgesia were documented in nursing records. Follow up plans and appointments were discussed. Post procedure instruction was given as documented in nursing records and patient was discharged in the care of an identified sales route driver helper. COMMENTS: I discussed with patient the increased risk of infection with dibaetes and his history of neuropenia, and if there are any signs of infection, he should seek immediate medical attention. he voiced understanding. CC: Victorino Hedrick
[2019-09-16] MEDS: Omnipaque 240 MG/ML 50 ML BTL IJ (12:56)
[2019-09-16] MEDS: Dexamethasone Sod. Phos./Pres-Free 10 MG/ML VIAL IJ (12:57)
--- NOTE | 2019-09-16 12:59 | DI.RAD_ITS ---
EXAM: XR PAIN CLINIC LUMBAR SP 2V CLINICAL HISTORY: Dx: Lumbar Radiculopathy, LUMBAR EPIDURAL INJECTION TECHNIQUE: 2D and realtime digital imaging was performed. Fluoroscopy was provided in the OR COMPARISON: No exams were available for comparison FINDINGS: C-arm fluoroscopy was utilized by Dr. Wilson during reported lumbar epidural injection. Please see Dr. Marilynn awad'S procedure note. Hard copy shows needle placement and injection in what appears to be the neural foramen on the right at the L 4 5 level. Fluoro time 45.8 seconds.
[2019-09-16 13:01] VITALS: BP 164/88; PULSE 92; RESP 15; O2SAT 98
== END 2019-09-16 12:18 ==
PROVIDERS: PCP Internal Medicine; Visit Provider Internal Medicine
DX: M54.16 Radiculopathy, lumbar region (principal)
CPT/HCPCS: 64483; 72100; Q9967

== ENCOUNTER → 2019-11-18 13:39 | Outpatient (BNVA) | payer MEDICARE, MEDICAID, SELFPAY | PROVIDERS: PCP Internal Medicine; Referring Provider Internal Medicine; Visit Provider Psychiatry & Neurology Neurology | DX: G95.9 Disease of spinal cord, unspecified (principal); M25.551 Pain in right hip; G25.0 Essential tremor; M47.816 Spondylosis without myelopathy or radiculopathy, lumbar region; E11.42 Type 2 diabetes mellitus with diabetic polyneuropathy; Q06.8 Other specified congenital malformations of spinal cord; M54.5 Low back pain; G89.29 Other chronic pain | CPT/HCPCS: 99214 ==

== ENCOUNTER 2019-12-16 11:24 | Outpatient (CLI) | payer MEDICARE, MEDICAID, SELFPAY ==
--- NOTE | 2019-12-16 11:00 | DI.RAD_ITS ---
EXAM: XR HIP RT COMPLETE AP PELVIS INDICATION: R hip pain. COMPARISON: RT HIP COMPLETE AP PELVIS from 04/16/2014 MR lumbar spine wo from 06/26/2018 TECHNIQUE: 2D digital imaging was performed. FINDINGS: There is stable moderate bilateral acetabular spurring. The hip joint spaces are reasonably well ma intained. The sclerosis is seen at the upper aspect of the SI joints bilaterally which appears incre ased from the previous exam. Degenerative disc changes noted at L4-5. IMPRESSION: Stable degenerative changes of both hips. Increased SI joint degenerative changes. DATA REPOSITORY: RADIATION DOSE DELIVERED:
== END 2019-12-16 11:44 ==
PROVIDERS: PCP Internal Medicine; Referring Provider Psychiatry & Neurology Neurology; Visit Provider Orthopaedic Surgery
DX: M25.551 Pain in right hip (principal); M53.3 Sacrococcygeal disorders, not elsewhere classified; M16.0 Bilateral primary osteoarthritis of hip; M54.5 Low back pain; E11.9 Type 2 diabetes mellitus without complications
CPT/HCPCS: 99214; 73502

== ENCOUNTER 2020-02-06 23:42 | Emergency (ER) | payer MEDICARE, MEDICAID, SELFPAY ==
--- NOTE | 2020-02-06 23:54 | W.ED.GENAD ---
Discharge Plan Disposition Patient Disposition: HOME Condition: Stable Discharge Details Chief Complaint: AnimalBite Clinical Impression: Cat bite Primary Care Provider: Victorino Hedrick ED Provider: Jose C Gill [place] Meds and New Rx's Prescriptions: New amoxicillin-pot clavulanate [Augmentin] 875-125 mg tablet 1 tab PO BID Qty: 14 RF: 0 azithromycin 500 mg tablet See Rx Instructions .ROUTE .COMPLEX Qty: 6 RF: 0 Continued aspirin 325 mg tablet 325 mg PO DAILY PRNRF: 0 solifenacin [Vesicare] 5 MG tablet 10 mg PO DAILY RF: 0 acetaminophen 325 MG tablet 650 mg PO Q4H PRN RF: 0 tramadol 50 MG tablet 50 mg PO DAILY PRNRF: 0 tamsulosin 0.4 MG capsule 0.8 mg PO HS RF: 0 glimepiride 4 MG tablet 4 mg PO DAILY RF: 0 cyclobenzaprine 10 MG tablet 10 mg PO Q8H PRN PRNRF: 0 naproxen 500 MG tablet 500 mg PO BID PRNRF: 0 Myrbetriq 25 MG tablet extended release 24 hr 25 mg PO HS RF: 0 hydrocortisone [Anusol-HC] 2.5 % cream with perineal applicator 1 applic [place] DAILY Qty: 30 RF: 0 Discharge Instructions Additional Instructions: if you have spreading redness from the wounds or yellow/white discharge return to the emergency department if your cat shows any signs of rabies such as increased aggression or salvation return to the emergency department Medical Decision Making 70 yo male comes in after his cat bit and scratched his right hand tonight. Denies other injuries. sTates cat last had rabies vaccine 2 years ago and has no signs of rabies, he had tetanus vaccine this year.He has 3 woud on hand less than a cm on his right posterior hand that he irrigated extensively at home under faucet and has full rom and no palpable bony tenderness. Discussed observing cat vs rabies vaccine and he chooses watching cat for signs of rabies. Will start augmentin and also for prevention of possible cat scratch disease start azithromcyin, return precautions given Differential Diagnosis Differential Diagnosis: cat scratch, cat bite HPI General Mode of arrival: ambulatory. Date/Time Provider Initiated Documentation: 02/06/20 23:42. Limitations to Documentation: no limitations. Information obtained by: patient. History of Present Illness 70 year old M presents to the emergency department with the chief complaint of cat bite/scratch , described as mild, and it has been constant. No relieving factors improve symptom(s), No exacerbating factors reported . Patient did receive the following treatments prior to arrival, none Related Data Home Medications Medication Instructions Recorded Confirmed glimepiride 4 mg PO DAILY 03/03/14 12/16/19 tamsulosin 0.8 mg PO HS 03/03/14 12/16/19 cyclobenzaprine 10 mg PO Q8H PRN PRN 04/16/14 12/16/19 naproxen 500 mg PO BID PRN 10/29/16 12/16/19 Myrbetriq 25 mg PO HS 08/09/17 12/16/19 solifenacin [Vesicare] 10 mg PO DAILY tab-cap 12/10/17 12/16/19 acetaminophen 650 mg PO Q4H PRN tab-cap 01/10/18 12/16/19 tramadol 50 mg PO DAILY PRN tab 01/10/18 12/16/19 hydrocortisone [Anusol-HC] 1 applic [place] DAILY #30 gm 05/05/18 12/16/19 aspirin 325 mg tablet 325 mg PO DAILY PRN 07/13/19 12/16/19 amoxicillin-pot clavulanate 1 tab PO BID #14 tab 02/06/20 [Augmentin] azithromycin See Rx Instructions .ROUTE 02/06/20 .COMPLEX #6 tab Previous Rx's Medication Instructions Recorded hydrocortisone [Anusol-HC] 1 applic [place] DAILY #30 gm 05/05/18 amoxicillin-pot clavulanate 1 tab PO BID #14 tab 02/06/20 [Augmentin] azithromycin See Rx Instructions .ROUTE 02/06/20 .COMPLEX #6 tab Allergies Allergy/AdvReac Type Severity Reaction Status Date / Time No Known Allergies Allergy Unverified 12/16/19 10:51 General ALFRED: 4 Review of Systems All systems reviewed & are unremarkable except as noted in HPI and below Constitutional Constitutional: Denies chills, Denies fever(s) and Denies weakness Cardiovascular Cardiovascular: Denies chest pain and Denies dyspnea Respiratory Respiratory: Denies cough and Denies dyspnea Gastrointestinal Gastrointestinal: Denies abdominal pain, Denies nausea and Denies vomiting Musculoskeletal Musculoskeletal: Denies joint swelling Neurologic Neurologic: Denies weakness Psychiatric Psychiatric: Denies depression [facility] Social History Smoking/Tobacco Use Status: Never Alcohol Intake: current Alcohol Intake frequency: holidays/special occasions only Drug use: Never Substance use type: does not use 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, 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, 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 Seatbelt use: always Do you feel safe at home: Yes Do you feel safe in your relationship?: Yes Exam Const General: no acute distress Orientation: alert HENMT Head: normal to inspection Ears: external ears normal General nose exam: external nose normal Mouth: moist mucous membranes Eyes General: appearance normal, both eyes and all related structures Neck Neck: normal visual inspection Resp Effort & Inspection: normal respiratory effort and able to speak in complete sentences Cardio Rate: regular rate Skin General skin exam: no rashes or lesions noted Neuro General: patient alert and patient oriented x3 Extrem General: full ROM and capillary refill normal Psych Mental Status: mental status grossly normal
[2020-02-06 23:56] VITALS: BP 147/70; PULSE 98; RESP 16; TEMP 36.6; O2SAT 98
[2020-02-07] MEDS: Amoxicillin 875/Clav. 125 TAB PO (00:05)
== END 2020-02-07 00:05 | disposition home or self-care (01) ==
PROVIDERS: Emergency Provider Emergency Medicine; PCP Internal Medicine
DX: S61.451A Open bite of right hand, initial encounter (principal); W55.01XA Bitten by cat, initial encounter
CPT/HCPCS: 99283

== ENCOUNTER 2020-02-15 21:24 | Outpatient (REF) | payer MEDICARE, MEDICAID, SELFPAY ==
[2020-02-15 21:25] LABS: Calculated LDL 71 mg/dL (<100); Cholesterol 130 mg/dL (<200); HDL Cholesterol 32 mg/dL (40-60); Triglyceride 138 mg/dL (<150)
== END 2020-02-15 21:44 ==
LOC: NCHCN 21:24
PROVIDERS: PCP Internal Medicine; Visit Provider Internal Medicine
DX: E78.6 Lipoprotein deficiency (principal)
CPT/HCPCS: 80061

== ENCOUNTER 2020-02-16 08:40 | Outpatient (CLI) | payer MEDICARE, MEDICAID, SELFPAY ==
--- NOTE | 2020-02-16 | DI.RAD_ITS ---
EXAM: XR HAND RT COMPLETE CLINICAL HISTORY: SANDRA TAYLOR, Z51.89. TECHNIQUE: 2D digital imaging was performed. COMPARISON: No exams were available for comparison FINDINGS: BONES: No acute fracture is present. No bony destructive lesion is seen. JOINTS: No dislocation present. There is mild narrowing the interphalangeal joints the fingers and mi ld periarticular spurring. SOFT TISSUE: Normal. IMPRESSION: Mild degenerative changes of the interphalangeal joints of the fingers. DATA REPOSITORY: RADIATION DOSE DELIVERED:
== END 2020-02-16 09:00 ==
PROVIDERS: PCP Internal Medicine; Visit Provider Nurse Practitioner Family
DX: M79.641 Pain in right hand (principal); M19.041 Primary osteoarthritis, right hand; W55.01XD Bitten by cat, subsequent encounter
CPT/HCPCS: 73130

== ENCOUNTER → 2020-05-02 13:19 | Outpatient (BNVA) | payer MEDICARE, MEDICAID, SELFPAY | PROVIDERS: PCP Internal Medicine; Referring Provider Internal Medicine; Visit Provider Psychiatry & Neurology Neurology | DX: G25.0 Essential tremor (principal); M47.816 Spondylosis without myelopathy or radiculopathy, lumbar region; E11.42 Type 2 diabetes mellitus with diabetic polyneuropathy; Q06.8 Other specified congenital malformations of spinal cord; G95.9 Disease of spinal cord, unspecified; M54.5 Low back pain | CPT/HCPCS: 99214 ==

== ENCOUNTER 2020-05-16 16:08 | Outpatient (REF) | payer MEDICARE, MEDICAID, SELFPAY ==
[2020-05-18 14:38] LABS: Patient Race White; SARS-CoV-2 RNA Undetected (Undetected); SARS-CoV-2 Specimen Source Nasal
== END 2020-05-16 16:28 ==
LOC: NCHCN 16:08
PROVIDERS: PCP Internal Medicine; Visit Provider Nurse Practitioner Family
DX: Z20.828 Contact with and (suspected) exposure to other viral communicable diseases (principal)
CPT/HCPCS: U0003

== ENCOUNTER 2020-08-09 01:13 | Outpatient (CLI) | payer MEDICARE, MEDICAID, SELFPAY ==
--- NOTE | 2020-08-09 13:48 | DI.RAD_ITS ---
EXAM: XR SHOULDER RT COMPLETE 2+V CLINICAL HISTORY: RT SHOULDER PAIN,M25.511. TECHNIQUE: 2D digital imaging was performed. COMPARISON: No exams were available for comparison FINDINGS: There is deformity of the distal end of the clavicle which could be secondary to prior surgical resec tion. There is some spurring at the distal clavicle. Spurring is noted at the glenohumeral joint. There is mild joint space narrowing. Humeral head appears normally positioned. No tendon or joint s pace calcifications are seen. IMPRESSION: Postsurgical and degenerative changes. DATA REPOSITORY: RADIATION DOSE DELIVERED:
== END 2020-08-09 01:33 ==
PROVIDERS: PCP Internal Medicine; Visit Provider Internal Medicine
DX: M77.8 Other enthesopathies, not elsewhere classified (principal); M25.511 Pain in right shoulder
CPT/HCPCS: 73030

== ENCOUNTER → 2020-09-07 13:32 | Outpatient (BNVA) | payer MEDICARE, MEDICAID, SELFPAY | PROVIDERS: PCP Internal Medicine; Referring Provider Internal Medicine; Visit Provider Student in an Organized Health Care Education/Training Program | DX: M67.921 Unspecified disorder of synovium and tendon, right upper arm (principal); M19.011 Primary osteoarthritis, right shoulder; M75.21 Bicipital tendinitis, right shoulder | CPT/HCPCS: 99214 ==

== ENCOUNTER 2020-09-16 02:15 | Outpatient (CLI) | payer MEDICARE, MEDICAID, SELFPAY ==
--- NOTE | 2020-09-16 07:30 | DI.MRI_ITS ---
EXAM: MR UPPER JOINT RT WO CLINICAL HISTORY: Preoperative planning?evaluate rotator cuff integr,TENDONITIS,ARTHRITIS. TECHNIQUE: Multiplanar multisequence MRI was performed. COMPARISON: CR XR SHOULDER RT COMPLETE 2+V from 08/09/2020 FINDINGS: BONES: There is no fracture or contusion pattern. Small subchondral cysts are seen in the humeral hea d. JOINTS: There is artifact at the acromioclavicular joint limiting evaluation. This appears to be pos toperative in nature. There has been prior resection of the distal clavicle. The glenohumeral joint is well maintained. TENDONS: Supraspinatus: There is tendinosis of the supraspinatus tendon but no evidence of a tear. Infraspinatus: There is tendinosis of the infraspinatus tendon. No evidence of a tear. Subscapularis: Unremarkable. Teres Minor: Unremarkable. Biceps and [place]: Unremarkable. MUSCLES: Unremarkable. No significant muscular fatty atrophy of the rotator cuff muscles. GLENOID LABRUM: Unremarkable on this noncontrast examination. SOFT TISSUES: Unremarkable. LIGAMENTS: Unremarkable. OTHER: There does appear to be a small amount of fluid in the subacromial subdeltoid bursa. IMPRESSION: 1. No evidence of a rotator cuff tear. 2. Tendinosis of the supraspinatus and infraspinatus tendons. 3. Postsurgical changes seen at the acromioclavicular joint. DATA REPOSITORY:
== END 2020-09-16 02:16 | disposition home or self-care (01) ==
LOC: DI 02:15
PROVIDERS: PCP Internal Medicine; Visit Provider Student in an Organized Health Care Education/Training Program
DX: M75.81 Other shoulder lesions, right shoulder (principal)
CPT/HCPCS: 73221

== ENCOUNTER → 2020-09-21 14:59 | Outpatient (BNVA) | payer MEDICARE, MEDICAID, SELFPAY | PROVIDERS: PCP Internal Medicine; Referring Provider Internal Medicine; Visit Provider Student in an Organized Health Care Education/Training Program | DX: M19.011 Primary osteoarthritis, right shoulder (principal) | CPT/HCPCS: 20610; 99213; 99214; J1040 ==

== ENCOUNTER 2020-11-20 17:37 | Emergency (ER) | payer MEDICARE, MEDICAID, SELFPAY ==
[2020-11-20 17:40] VITALS: BP 143/70; PULSE 91; TEMP 36.6; O2SAT 98
--- NOTE | 2020-11-20 17:51 | ED.GENADUL_ITS ---
Discharge Plan Disposition Patient Disposition: HOME Condition: Stable Discharge Details Clinical Impression: Foreign body in left ear Primary Care Provider: Victorino Hedrick ED Provider: Jose C Gill Home Meds and New Rx's Prescriptions: Continued solifenacin [Vesicare] 5 MG tablet 10 mg PO DAILY RF: 0 acetaminophen 325 MG tablet 650 mg PO Q4H PRN RF: 0 tramadol 50 MG tablet 50 mg PO DAILY PRNRF: 0 tamsulosin 0.4 MG capsule 0.8 mg PO HS RF: 0 glimepiride 4 MG tablet 4 mg PO DAILY RF: 0 cyclobenzaprine 10 MG tablet 10 mg PO Q8H PRN PRNRF: 0 aspirin 81 mg Tablet,Delayed Release (Dr/Ec) 81 mg PO DAILY RF: 0 naproxen 500 MG tablet 500 mg PO BID PRNRF: 0 Myrbetriq 25 MG tablet extended release 24 hr 25 mg PO HS RF: 0 hydrocortisone [Anusol-HC] 2.5 % cream with perineal applicator 1 applic [place] DAILY Qty: 30 RF: 0 Discharge Instructions Additional Instructions: place 5 drops of the ofloxacin in the ear twice daily for 5 days if severe worsening pain or fevers return to the emergency department Medical Decision Making 70 yo male comes in with concern he may have the cotton end of a q tip stuck in his left ear, denies pain or other symptoms. Was cleaning his ear with a q tip and after removing it from the left ear noticed the cotton end was gone so came here. Denies significant pain or discharge. On exam there doesn't appear to be any foreign body but does have significant wax impaction. Will have nursing irrigate and reassess. wax and small amount of cotton removed with ear irrigation, no furter foreign body seen on repeat exam or wax, will place on empiric antibiotic drops and return precautions given Differential Diagnosis Differential Diagnosis: ear foreign body, wax impaction HPI General Mode of arrival: ambulatory . Date/Time Provider Initiated Documentation: 11/20/20 17:40 . Limitations to Documentation: no limitations . Information obtained by: patient . History of Present Illness 70 year old M presents to the emergency department with the chief complaint of possible left ear foreign body, described as mild, Patient started experiencing this h our(s) (1) and it has been constant. No relieving factors improve symptom(s), No exacerbating factors reported . Patient did receive the following treatments prior to arrival, none Related Data Home Medications Medication Instructions Recorded Confirmed glimepiride 4 mg PO DAILY 03/03/14 11/20/20 tamsulosin 0.8 mg PO HS 03/03/14 11/20/20 cyclobenzaprine 10 mg PO Q8H PRN PRN 04/16/14 11/20/20 naproxen 500 mg PO BID PRN 10/29/16 11/20/20 Myrbetriq 25 mg PO HS 08/09/17 11/20/20 solifenacin [Vesicare] 10 mg PO DAILY tab-cap 12/10/17 11/20/20 acetaminophen 650 mg PO Q4H PRN tab-cap 01/10/18 11/20/20 tramadol 50 mg PO DAILY PRN tab 01/10/18 11/20/20 hydrocortisone [Anusol-HC] 1 applic SD DAILY #30 gm 05/05/18 11/20/20 aspirin 81 mg PO DAILY 11/20/20 11/20/20 Previous Rx's Medication Instructions Recorded hydrocortisone [Anusol-HC] 1 applic SD DAILY #30 gm 05/05/18 Allergies Allergy/AdvReac Type Severity Reaction Status Date / Time No Known Allergies Allergy Unverified 11/20/20 17:44 General Stated Complaint: EarProblem ALFRED: 5 Review of Systems All systems reviewed & are unremarkable except as noted in HPI and below Constitutional Constitutional: Denies chills, Denies fever(s) and Denies weakness Cardiovascular Cardiovascular: Denies chest pain and Denies dyspnea Respiratory Respiratory: Denies cough and Denies dyspnea Gastrointestinal Gastrointestinal: Denies abdominal pain, Denies nausea and Denies vomiting Musculoskeletal Musculoskeletal: Denies joint swelling Neurologic Neurologic: Denies weakness [facility] Medical History (Updated 11/20/20 @ 18:46 by Jose C Gill MD) Abdominal bloating Anxiety Bladder outlet obstruction BPH (benign prostatic hypertrophy) Cervical myelopathy Depression Diabetes mellitus, type 2 Diabetes mellitus, type II Entrapment of left ulnar nerve Fatigue H/O: rheumatic fever History of knee replacement Hx of carpal tunnel syndrome Leukopenia Low back pain Lumbar herniated disc Myofascial pain syndrome Physical deconditioning Seborrheic keratosis Spinal stenosis Spinal stenosis, cervical region Spondylosis of lumbar region without myelopathy or radiculopathy Urinary retention Surgical History Endoscopic Carpal Tunnel release (11/24/12) left H/O surgical procedure a. carpal tunnel b. rotator cuff c. tonsillectomy d. 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 Current gender identity: male Seatbelt use: always Do you feel safe at home: Yes Do you feel safe in your relationship?: Yes Exam Const General: no acute distress Orientation: alert HENMT Head: normal to inspection Ears: external ears normal General nose exam: external nose normal Mouth: moist mucous membranes Eyes General: appearance normal, both eyes and all related structures Neck Neck: normal visual inspection Resp Effort & Inspection: normal respiratory effort and able to speak in complete sentences Cardio Rate: regular rate Skin General skin exam: no rashes or lesions noted Neuro General: patient alert and patient oriented x3 Extrem General: normal to inspection Psych Mental Status: mental status grossly normal Course Vital Signs Vital signs: Vital Signs Temperature 36.6 C 11/20/20 17:40 Pulse 91 H 11/20/20 17:40 Blood Pressure 143/70 H 11/20/20 17:40 Pulse Oximetry 98 11/20/20 17:40 Temperature 36.6 C 11/20/20 17:40 Temperature Source Temporal Artery Scan 11/20/20 17:40 Pulse 91 H 11/20/20 17:40 Respiratory Effort Non-Labored 11/20/20 17:43 Blood Pressure 143/70 H 11/20/20 17:40 Blood Pressure Position Sitting 11/20/20 17:40 Pulse Oximetry 98 11/20/20 17:40 Oxygen Delivery Method Room Air 11/20/20 17:40 Oxygen Flow Rate 0 11/20/20 17:40 Pain Level 0 11/20/20 17:40
[2020-11-20] MEDS: Ofloxacin 0.3% OTIC 5 ML BTL AD (18:58)
== END 2020-11-20 18:51 | disposition home or self-care (01) ==
PROVIDERS: Emergency Provider Emergency Medicine; PCP Internal Medicine
DX: T16.2XXA Foreign body in left ear, initial encounter (principal); X58.XXXA Exposure to other specified factors, initial encounter
CPT/HCPCS: 99283

== ENCOUNTER → 2020-12-07 14:00 | Outpatient (BNVA) | payer MEDICARE, MEDICAID, SELFPAY | PROVIDERS: PCP Internal Medicine; Referring Provider Internal Medicine; Visit Provider Student in an Organized Health Care Education/Training Program | DX: M19.011 Primary osteoarthritis, right shoulder (principal); G56.22 Lesion of ulnar nerve, left upper limb; G56.02 Carpal tunnel syndrome, left upper limb; M25.562 Pain in left knee; G89.29 Other chronic pain | CPT/HCPCS: 99213 ==

== ENCOUNTER 2020-12-22 15:37 | Outpatient (REF) | payer MEDICARE, MEDICAID, SELFPAY ==
[2020-12-22 21:03] LABS: Abs Immature Grans 0.01 10^3/uL (0.0-0.06); Absolute Basophil Count 0.02 10^3/uL (0.0-0.2); Absolute Eosinophil Count 0.07 10^3/uL (0.0-0.7); Absolute Lymphocyte Count 0.83 10^3/uL (1.2-3.4); Absolute Monocyte Count 0.28 10^3/uL (0.1-0.8); Absolute Neutrophil Count 2.26 10^3/uL (1.2-6.7); Basophils % 0.6; HCT 38.6 % (40.0-50.0); HGB 13.4 g/dL (13.5-17.5); Immature Grans % 0.3; Lymphocytes % 23.9; MCH 31.3 pg (27.0-33.0); MCHC 34.7 % (32.0-36.0); MCV 90.2 fL (80-95); MPV 9.7 fL (8.0-11.0); Monocytes % 8.1; Neutrophils % 65.1; Nucleated RBC 0 %; Platelet Count 151 10^3/uL (130-400); RBC 4.28 10^6/uL (4.36-5.78); RDW 11.9 % (11.8-14.1); RDW-SD 38.7 fL; WBC 3.47 10^3/uL (4.4-10.8)
[2020-12-22 21:12] LABS: NT-proBNP 41 pg/mL (<300)
== END 2020-12-22 15:38 | disposition home or self-care (01) ==
LOC: NCHCN 15:37
PROVIDERS: PCP Internal Medicine; Visit Provider Internal Medicine
DX: R53.83 Other fatigue (principal); R06.02 Shortness of breath
CPT/HCPCS: 83880; 85025

== ENCOUNTER 2020-12-27 13:38 | Outpatient (CLI) | payer MEDICARE, MEDICAID, SELFPAY ==
--- NOTE | 2020-12-27 13:15 | DI.RAD_ITS ---
Exam(s) XR KNEE LT 3V AP,LAT,OSMAR EXAM: XR KNEE LT 3V AP,LAT,OSMAR CLINICAL HISTORY: left knee pain. TECHNIQUE: 2D digital imaging was performed. COMPARISON: No exams were available for comparison FINDINGS: There is a knee joint arthroplasty. Satisfactory position alignment of components of prosthesis. No evidence of fracture or loosening. Posteriorly there is a oval calcification measuring 1.7 x 1.0 ce ntimetres. This is probably a intra-articular body within Knapp cyst behind the knee. . Also noted is a large calcific density anterior to the anterior tibial tubercle intimately associa iggy with the inferior aspect of the patellar ligament. IMPRESSION: DATA REPOSITORY: RADIATION DOSE DELIVERED:
== END 2020-12-27 13:39 | disposition home or self-care (01) ==
LOC: DIORS 13:38
PROVIDERS: PCP Internal Medicine; Referring Provider Internal Medicine; Visit Provider Physician Assistant Surgical
DX: M25.562 Pain in left knee (principal); Z96.652 Presence of left artificial knee joint; M71.22 Synovial cyst of popliteal space [Baker], left knee
CPT/HCPCS: 36415; 73562; 85652; 99213; 86140

== ENCOUNTER 2020-12-27 14:11 | Outpatient (CLI) | payer MEDICARE, MEDICAID, SELFPAY ==
[2020-12-27 14:37] LABS: ESR 5 mm/hr (0-20)
[2020-12-27 17:40] LABS: C-Reactive Protein < 0.05 mg/dL (0.0-0.3)
== END 2020-12-27 14:12 | disposition home or self-care (01) ==
LOC: LBO 14:14
PROVIDERS: PCP Internal Medicine; Visit Provider Physician Assistant Surgical
DX: M25.562 Pain in left knee (principal); Z96.652 Presence of left artificial knee joint; M71.22 Synovial cyst of popliteal space [Baker], left knee; T84.84XA Pain due to internal orthopedic prosthetic devices, implants and grafts, initial encounter
CPT/HCPCS: 36415; 85652; 99213; 86140

== ENCOUNTER 2021-03-08 02:11 | Outpatient (CLI) | payer MEDICARE, MEDICAID, SELFPAY ==
--- NOTE | 2021-03-08 06:30 | DI.NM_ITS ---
Exam(s) NM BONE SCAN 3 PHASE EXAM: NM BONE SCAN 3 PHASE CLINICAL HISTORY: r/o component loosening,KNEE PAIN,T84.84XA,Z96.659. TECHNIQUE: Injected Dose: 25 mCi Tc-99m MDP COMPARISON: NM MPI RESTING AND STRESS from 03/09/2014 CR XR HIP RT COMPLETE AP PELVIS from 12/16/2019 CR XR KNEE LT 3V AP,LAT,OSMAR from 12/27/2020 FINDINGS: Perfusion: Symmetric uptake. Blood Pool: No abnormal focal uptake. Delayed: Some uptake is seen subjacent to the medial aspect of the tibial component and around the me dial aspect of the femoral component of the left hip prosthesis. No abnormal uptake in the opposite- right knee. There is no abnormal uptake in the fibular head and neck. No abnormal uptake in the distal femurs. IMPRESSION: 1. Abnormal uptake on delayed images around the left knee prosthesis as described above. Findings ma y be consistent with element of loosening. DATA REPOSITORY:
== END 2021-03-08 02:31 ==
PROVIDERS: PCP Internal Medicine; Visit Provider Physician Assistant Surgical
DX: T84.84XA Pain due to internal orthopedic prosthetic devices, implants and grafts, initial encounter (principal); G89.29 Other chronic pain; M25.562 Pain in left knee; Z96.659 Presence of unspecified artificial knee joint; Y82.8 Other medical devices associated with adverse incidents
CPT/HCPCS: 78315

== ENCOUNTER → 2021-03-13 13:07 | Outpatient (BNVA) | payer MEDICARE, MEDICAID, SELFPAY | PROVIDERS: PCP Internal Medicine; Referring Provider Internal Medicine; Visit Provider Student in an Organized Health Care Education/Training Program | DX: T84.84XD Pain due to internal orthopedic prosthetic devices, implants and grafts, subsequent encounter (principal); Z96.652 Presence of left artificial knee joint; T84.033D Mechanical loosening of internal left knee prosthetic joint, subsequent encounter; M47.816 Spondylosis without myelopathy or radiculopathy, lumbar region; M48.062 Spinal stenosis, lumbar region with neurogenic claudication | CPT/HCPCS: 99214 ==

== ENCOUNTER 2021-03-30 01:22 | Outpatient (CLI) | payer MEDICARE, MEDICAID, SELFPAY ==
--- NOTE | 2021-03-30 08:15 | DI.MRI_ITS ---
Exam(s) MR LUMBAR SPINE WO EXAM: MR LUMBAR SPINE WO CLINICAL HISTORY: BACK PAIN, LUMBAR SPINAL STENOSIS,M48.062. TECHNIQUE: Multiplanar multisequence MRI of the Lumbar spine was performed. Compared to prior MRI sc an March 2010 COMPARISON: MR MRI - LUMBAR SPINE WO CONTRAST from 03/22/2010 There are no prior plain films of the lumbar spine available at the time of this MRI interpretation FINDINGS: Five lumbar vertebrae are presumed. Conus medullaris is again noted to be at a lower than normal level, with the inferior tip of the conu s being at the lower L3 level, similar to the previous study. There is lipomatosis but not very thick ened filum terminale... There is no evidence of conus mass nor subjacent clumping of intrathecal nerv e roots to suggest arachnoiditis. The distal thecal sac terminates at the S2-3 level with no evidenc e of distinct abnormality at this level.There is no evidence of Tarlov intrasacral cysts nor other si gnificant findings within the sacral canal Bones:There are no fractures nor ominous osseous lesions in the lumbar vertebral bodies and visualize d sacrum. With respect to the individual levels... T12-L1: Mild annular bulging. No prominent disc herniation. Central canal dimensions are within andria l limits and there is no significant foraminal stenosis at this level. No prominent facet arthropathy . This level appears unchanged from prior MRI scan of June 2018 L1-2: Normal disc height and signal. Mild symmetrical annular bulging without a dominant disc herniat ion. No significant central canal stenosis. No foraminal stenosis. No prominent facet hypertrophy. Th is level appears unchanged from the prior 2018 study. L2-3: This level again exhibits advanced disc space narrowing and anterior bridging osteophytes bilat erally. There is elimination of the disc space on the left side and preservation of minimal disc heig ht on the right side, unchanged from previous. There is a posterior bony ridging which indents the an terior thecal sac, unchanged from the prior study. There is no superimposed disc herniation at this l evel. Central canal dimensions are lower normal. There is no foraminal stenosis despite the advanced disc height loss. There is no significant facet arthropathy at this level. Essentially, this level is unchanged from the prior study. L3-4: This level also exhibits advanced disc height loss in similar fashion to the prior 2018 study.T here are Modic type 2 sub endplate fatty marrow changes at this level. There is posterior bony ridgin g again noted at this level and a superimposed left lateral of center disc protrusion again noted whi ch extends caudally for a distance of 10 millimeters the hind the left-side of L4 vertebral body subj acent to the bony ridging and indents the anterior left side of the thecal sac. There is moderate-sev ere central spinal canal stenosis at this level again noted, essentially unchanged. AP measurement of the canal is 9 millimeters. There is been laminectomies at this level again noted. There is mild-mod erate foraminal stenosis on the right side again noted and there is mild foraminal stenosis on the le ft side, unchanged. Moderate facet degenerative changes are noted. This level exhibits minimal if any significant change compared to the prior MRI study of 2018. L4-5: This level exhibits preserved disc height with mild degenerative anterolisthesis of L4 upon L5 again noted, not increased from the prior study. There is posterior annular bulging with a superimpos ed central subligamentous disc protrusion at this level, unchanged. This results in moderate-severe c entral spinal canal stenosis at this level, unchanged. There is also been laminectomies at this level . There is some impingement of the exiting nerve roots at this level between the annulus and the dege nerative facet joints, slightly more so than previous. The severe degenerative changes in the facet j oints are again noted bilaterally at this level. L5-S1: This level again exhibits a developmentally small disc space which exhibits preserved signal a nd no disc herniation nor canal stenosis at this level. Also no foraminal stenosis at this level. The re has been right laminectomy at this level. This level also appears unchanged from the prior MRI sca n of June 2018 Soft tissues: No evidence of paraspinal mass. Psoas muscles appear relatively symmetrical. Parapelvi c cysts in both kidneys are noted. IMPRESSION: 1. Multilevel findings as described individually above, with the most significant spinal canal stenos is being at L3-4 and L4-5 levels (where there is also been prior laminectomies). However, findings in all levels appear similar to the prior MRI scan of June 2018. 2. The amount of degenerative anterolisthesis of L4 upon L5 also appears unchanged from the prior nena dy. This is related to advanced degenerative changes again noted in both facet joints at this level. There is perhaps minimal increase in impingement of the exiting nerve roots bilaterally at this level , but this is subtle. 3. Again noted is a somewhat low position conus medullaris. Conus medullaris is at the L3 level here (typically is at T12-L1 or L1 level). There is a lipomatosis but not thickened filum terminale. No pr ominent cord tethering and no evidence of dysraphism in the visualized distal spinal cord in the fiel d of view of this study which is T11 and below. No abnormal findings within the sacral canal. DATA REPOSITORY:
== END 2021-03-30 01:42 ==
PROVIDERS: PCP Internal Medicine; Visit Provider Student in an Organized Health Care Education/Training Program
DX: M48.062 Spinal stenosis, lumbar region with neurogenic claudication (principal); M47.816 Spondylosis without myelopathy or radiculopathy, lumbar region; G95.81 Conus medullaris syndrome
CPT/HCPCS: 72148

== ENCOUNTER → 2021-08-30 12:31 | Outpatient (BNVA) | payer MEDICARE, MEDICAID, SELFPAY | PROVIDERS: PCP Internal Medicine; Visit Provider Psychiatry & Neurology Neurology | DX: G25.0 Essential tremor (principal); M47.816 Spondylosis without myelopathy or radiculopathy, lumbar region; G95.9 Disease of spinal cord, unspecified; G62.9 Polyneuropathy, unspecified; Q06.8 Other specified congenital malformations of spinal cord; M48.062 Spinal stenosis, lumbar region with neurogenic claudication; M54.50 Low back pain, unspecified; Z59.89 Other problems related to housing and economic circumstances | CPT/HCPCS: 99215 ==

== ENCOUNTER 2021-09-26 16:33 | Outpatient (REF) | payer MEDICARE, MEDICAID, SELFPAY ==
[2021-09-26 21:43] LABS: Anion Gap 5.4 mmol/L (3-11); BUN 11 mg/dL (7-18); CO2 27.6 mmol/L (21.0-32.0); Calcium 8.4 mg/dL (8.5-10.1); Calculated LDL 86 mg/dL (<100); Chloride 107 mmol/L (98-107); Cholesterol 149 mg/dL (<200); Glucose 192 mg/dL (74-106); HDL Cholesterol 47 mg/dL (40-60); Potassium 4.3 mmol/L (3.5-5.1); Sodium 140 mmol/L (136-145); Triglyceride 83 mg/dL (<150)
== END 2021-09-26 16:34 | disposition home or self-care (01) ==
LOC: NCHCN 16:33
PROVIDERS: PCP Internal Medicine; Visit Provider Internal Medicine
DX: E78.6 Lipoprotein deficiency (principal); F41.9 Anxiety disorder, unspecified; R53.83 Other fatigue
CPT/HCPCS: 80048; 80061

== ENCOUNTER 2021-10-24 01:18 | Outpatient (CLI) | payer MEDICARE, MEDICAID, SELFPAY ==
[2021-10-24 11:57] LABS: Source Nasal/Nares
[2021-10-24 14:42] LABS: COVID-19 PCR Negative (Negative)
== END 2021-10-24 01:19 | disposition home or self-care (01) ==
LOC: LBO 01:18
PROVIDERS: PCP Internal Medicine; Visit Provider Preventive Medicine Occupational Medicine
DX: Z20.822 Contact with and (suspected) exposure to COVID-19 (principal); Z01.818 Encounter for other preprocedural examination
CPT/HCPCS: 87635; U0005

== ENCOUNTER 2021-10-26 10:47 | Outpatient (CLI) | payer MEDICARE, MEDICAID, SELFPAY ==
--- NOTE | 2021-10-26 06:00 | DI.RAD_ITS ---
Exam(s) XR PAIN CLINIC LUMBAR SP 2V EXAM: XR PAIN CLINIC LUMBAR SP 2V CLINICAL HISTORY: Dx: Lumbar Spondylosis TECHNIQUE: 2D and realtime digital imaging was performed. Radiologist not present. CONTRAST MATERIAL: None. COMPARISON: No exams were available for comparison FINDINGS: Fluoroscopy was provided for pain management therapy. Please refer to procedure report or details. Cumulative dose: Ka,r=19.5 mGy IMPRESSION: RADIATION DOSE DELIVERED:
[2021-10-26 11:07] VITALS: BP 129/81; PULSE 91; RESP 18; TEMP 37.1; O2SAT 97
[2021-10-26] MEDS: Omnipaque 240 MG/ML 50 ML BTL IJ (12:15)
[2021-10-26] MEDS: Bupivacaine 0.5% Pres-Free 10 ML VIAL IJ (12:15)
[2021-10-26 12:16] VITALS: BP 141/80; PULSE 84; RESP 19; O2SAT 94
--- NOTE | 2021-10-26 12:17 | PDOC.PAIN_ITS ---
Pain Clinic Procedure Note Procedure Note Procedure Note: Lumbar/Sacral Medial Branch Blocks Eleuterio Moore has been referred to the [facility] for lumbar/sacral medial branch blocks. COMMENTS: He was [facility] by Dr. [facility] Dr. Wilson recommended the LMBB. His pre-procedure pain VAS is 2/10. Dx: Lumbosacral spondylosis without myelopathy Patient was interviewed and the medical record reviewed. There were no medical, pharmacologic, radiographic or other structural contraindications to attempting fluoroscopically guided local anesthetic lumbar/sacral medial branch blocks. Risks and expected side effects as well as potential benefit of the procedure were reviewed and voiced concerns addressed. The printed consent form was signed and witnessed. Standard time-out procedure was performed. Patient was placed in the prone position on the fluoroscopy table and automated blood pressure cuff and pulse oximeter applied. The skin entry points for approaching the anatomic target points of the segmental medial branches of bilateral L3-L5 were identified with anfluoroscopy and marked. Following thorough Chlorhexadine preparation of the skin and draping and 1% lidocaine infiltration of the skin entry points and subcutaneous tissues, a 22 gauge spinal needle was placed under fluoroscopic guidance down on to the target point for each respective segmental medial branch.Position was confirmed in A/P, oblique and lateral views with 0.25ml of omnipaque 240. At this point 0.5m of 0.5% Bupivacaine was injected at each medial branch.. Vital signs were stable throughout the procedure and were as recorded in the docflowsheet by the nursing staff. Follow up plans and appointments were discussed and was instructed to keep careful note of how the usual pain was modified by these injections. Specifically was asked to keep a pain diary for the next 24 hours using a numeric pain scale of 0-10 and report these results at the follow-up visit. Post procedure instruction was given as documented in the nursing documentation and having met discharge criteria. Patient was discharged from the [facility]. Based on the medial branches blocked today, if the patient has adequate relief and we are able to proceed to radiofrequency ablation, the treatment should result in the denervation of the bilateral L4-L5 and L5-S1 FACET JOINTS. We would expect to denervate a total of 4 facets during the radiofrequency ablation. COMMENTS: Post-procedure pain VAS was 0/10. Sammy Artis DO, MPH [facility]-Pain Management [facility] CC: Victorino Hedrick
== END 2021-10-26 10:48 | disposition home or self-care (01) ==
LOC: PC 10:48
PROVIDERS: PCP Internal Medicine; Visit Provider Preventive Medicine Occupational Medicine
DX: M47.817 Spondylosis without myelopathy or radiculopathy, lumbosacral region (principal)
CPT/HCPCS: 64493; 64494; 72100; Q9967

== ENCOUNTER 2021-11-14 17:37 | Outpatient (REF) | payer MEDICARE, MEDICAID, SELFPAY ==
[2021-11-14 21:22] LABS: Absolute Basophil Count 0.02 10^3/uL (0.0-0.2); Absolute Eosinophil Count 0.04 10^3/uL (0.0-0.7); Absolute Lymphocyte Count 0.61 10^3/uL (1.2-3.4); Absolute Monocyte Count 0.26 10^3/uL (0.1-0.8); Absolute Neutrophil Count 2.58 10^3/uL (1.2-6.7); Basophils % 0.6; Eosinophils % 1.1; HCT 42.2 % (40.0-50.0); Lymphocytes % 17.4; MCH 31.2 pg (27.0-33.0); MCHC 33.2 % (32.0-36.0); MPV 9.7 fL (8.0-11.0); Monocytes % 7.4; Neutrophils % 73.5; Nucleated RBC 0 %; Platelet Count 164 10^3/uL (130-400); RBC 4.49 10^6/uL (4.36-5.78); RDW 11.9 % (11.8-14.1); RDW-SD 41.3 fL; WBC 3.51 10^3/uL (4.4-10.8)
[2021-11-14 21:27] LABS: ALT 24 U/L (16-63); AST 16 U/L (15-37); Albumin 3.7 g/dL (3.4-5.0); Alkaline Phosphatase 88 U/L (46-116); Anion Gap 5.9 mmol/L (3-11); BUN 14 mg/dL (7-18); Bilirubin, Total 0.8 mg/dL (0.2-1.0); CO2 28.1 mmol/L (21.0-32.0); Calcium 8.4 mg/dL (8.5-10.1); Chloride 105 mmol/L (98-107); Glucose 206 mg/dL (74-106); Lipase 140 U/L (73-393); Potassium 4.3 mmol/L (3.5-5.1); Sodium 139 mmol/L (136-145)
== END 2021-11-14 17:38 | disposition home or self-care (01) ==
LOC: NCHCN 17:37
PROVIDERS: PCP Internal Medicine; Visit Provider Internal Medicine
DX: K86.9 Disease of pancreas, unspecified (principal); D72.819 Decreased white blood cell count, unspecified
CPT/HCPCS: 80053; 83690; 85025

== ENCOUNTER 2022-02-22 09:30 | Outpatient (CLI) | payer MEDICARE, MEDICAID, SELFPAY ==
--- NOTE | 2022-02-22 06:00 | DI.RAD_ITS ---
Exam(s) XR PAIN CLINIC LUMBAR SP 2V EXAM: XR PAIN CLINIC LUMBAR SP 2V CLINICAL HISTORY: Lumbar Spondylosis TECHNIQUE: 2D and realtime digital imaging was performed. CONTRAST MATERIAL: Refer to procedure report. COMPARISON: No exams were available for comparison FINDINGS: Fluoroscopy was provided for Dr. Artis during the performance of a lumbar medial branch blocks. Plea se refer to the procedure report for complete details. Ka,r=16.9 mGy IMPRESSION:
[2022-02-22 09:46] VITALS: BP 111/70; PULSE 80; RESP 20; TEMP 36.9; O2SAT 96
[2022-02-22 10:37] VITALS: BP 145/77; PULSE 75; RESP 13; O2SAT 100
--- NOTE | 2022-02-22 10:41 | PDOC.PAIN_ITS ---
Pain Clinic Procedure Note Procedure Note Procedure Note: Lumbar/Sacral Medial Branch Blocks Eleuterio Moore has been referred to the [facility] for lumbar/sacral medial branch blocks. COMMENTS: He had good relief with his first LMBB. Pre-procedure VAS was 7/10. Dx: Lumbosacral spondylosis without myelopathy Patient was interviewed and the medical record reviewed. There were no medical, pharmacologic, radiographic or other structural contraindications to attempting fluoroscopically guided local anesthetic lumbar/sacral medial branch blocks. Risks and expected side effects as well as potential benefit of the procedure were reviewed and voiced concerns addressed. The printed consent form was signed and witnessed. Standard time-out procedure was performed. Patient was placed in the prone position on the fluoroscopy table and automated blood pressure cuff and pulse oximeter applied. The skin entry points for approaching the anatomic target points of the segmental medial branches of bilateral L3-L5 were identified with anfluoroscopy and marked. Following thorough Chlorhexadine preparation of the skin and draping and 1% lidocaine infiltration of the skin entry points and subcutaneous tissues, a 25 gauge 3.5 spinal needle was placed under fluoroscopic guidance down on to the target point for each respective segmental medial branch.Position was confirmed in A/P, oblique and lateral views with 0.25ml of omnipaque 240. At this point I injected 0.5ml of 2% Lidocaine to each segmental sensory nerve. Vital signs were stable throughout the procedure and were as recorded in the docflowsheet by the nursing staff. Follow up plans and appointments were discussed and was instructed to keep careful note of how the usual pain was modified by these injections. Specifically was asked to keep a pain diary for the next 24 hours using a numeric pain scale of 0-10 and report these results at the follow-up visit. Post procedure instruction was given as documented in the nursing documentation and having met discharge criteria. Patient was discharged from the [facility]. Based on the medial branches blocked today, if the patient has adequate relief and we are able to proceed to radiofrequency ablation, the treatment should result in the denervation of the bilateral L4-L5 and L5-S1 FACET JOINTS. We would expect to denervate a total of 4 facets during the radiofrequency ablation. COMMENTS: Post-procedure pain VAS 1/10. Sammy Artis DO, MPH [facility]-Pain Management [facility]-Center for Pain [facility] CC: Victorino Hedrick
[2022-02-22] MEDS: Lidocaine 2% Pres-Free 2 ML VIAL IJ (10:52)
[2022-02-22] MEDS: Omnipaque 240 MG/ML 50 ML BTL IJ (10:53)
== END 2022-02-22 09:31 | disposition home or self-care (01) ==
LOC: PC 09:30
PROVIDERS: PCP Internal Medicine; Visit Provider Preventive Medicine Occupational Medicine
DX: M47.817 Spondylosis without myelopathy or radiculopathy, lumbosacral region (principal); M54.50 Low back pain, unspecified
CPT/HCPCS: 64493; 64494; 72100; Q9967

== ENCOUNTER 2022-05-30 12:25 | Outpatient (CLI) | payer MEDICARE, MEDICAID, SELFPAY ==
[2022-05-30 12:37] VITALS: BP 124/68; PULSE 87; RESP 20; TEMP 36.9; O2SAT 97
[2022-05-30] MEDS: fentaNYL 100 MCG/2 ML VIAL IVP (13:15)
[2022-05-30 13:54] VITALS: BP 126/56; PULSE 88; RESP 18; O2SAT 100
--- NOTE | 2022-05-30 13:54 | DI.RAD_ITS ---
Exam(s) XR PAIN CLINIC LUMBAR SP 2V EXAM: XR PAIN CLINIC LUMBAR SP 2V CLINICAL HISTORY: Dx: Lumbar Spondylosis TECHNIQUE: 2D and realtime digital imaging was performed. Radiologist not present. CONTRAST MATERIAL: None. COMPARISON: No exams were available for comparison FINDINGS: Fluoroscopy was provided for pain management therapy. Please refer to procedure report or details. Cumulative dose: Ka,r=35.5 mGy IMPRESSION: RADIATION DOSE DELIVERED:
--- NOTE | 2022-05-30 14:00 | PDOC.PAIN ---
Date of service: 05/30/22 Time of Service: 14:03 Pain Clinic Procedure Note Procedure Note Procedure Note: Bilateral Lumbar Radiofrequency with Coolief Machine PROCEDURE NOTE Date of Service: May 30, 2022 Patient: Eleuterio Moore Provider: Sammy Artis DO, MPH Pre Operative Diagnosis: Lumbosacral Spondylosis without Myelopathy Post Operative Diagnosis: Same Pre-procedure pain; VAS= 7/10 PROCEDURE: Radiofrequency Ablation of medial branches - Bilateral L3 L4 L5 and lateral branches of bilateral S1. Eleuterio Moore was brought into the fluoroscopy suite and positioned into the prone position on the fluoroscopy table and allowed to adjust to a position of comfort. A grounding pad was placed on the left thigh. The lumbar region was widely prepped with a chloraprep solution, allowed to air dry and draped in standard sterile surgical fashion. Local anesthesia was provided by 4 mL of 2 % Lidocaine delivered with a 25g needle. A 17g 75/100/150mm radiofrequency introducer needle was placed to the planned anatomic targets guided with intermittent fluoroscopy with a perpendicular approach to terminally place at the junction of the superior articular process and the transverse process of the bilateral L4 L5, the base of the sacral ala on the bilateral for the L5 medial branch nerve and the area between base of the sacral ala to the S1 foramen bilaterally. The stylets were removed and radiofrequency probes with a 4mm active tip were then inserted. Needle tip position of the probes was verified in the AP, oblique, and lateral views. At each site, the medial branch nerve was stimulated at 2 Hz to a maximum 1-2 volts determined to finalize safe needle and electrode placement. The patient was awake and responsive during this portion of the procedure. Each target was anesthetized with 1-2 mL of 2 % Lidocaine for anesthesia for lesioning and then each target was lesioned at 80 degrees Celsius for 2 minutes and 30 seconds. Tissue impedences were noted to be between 250 and 500 Ohms. Electrodes and needles were then removed and bandages placed over the needle placement sites, the patient then returned to the supine position on a stretcher and transported to the recovery room without hemodynamic, neurologic, or allergic reactions. Fluoroscopic images were printed for hard copy recording and digitally archived. POST PROCEDURE EVALUATION: IMPRESSION: 1. Summary of procedure. Medication given is documented in the MAR. 2. The patient will be contacted in 1-3 weeks 3. Estimated Blood Loss: <5 mls 4. Fluoroscopy time: Documented in the EMR. Follow up plans and appointments were discussed with the Eleuterio . Post procedure instruction was given as documented in nursing documentation and having met discharge criteria, Eleuterio was discharged from the Pain Management Center. COMMENTS: No apparent complications. Post-procedure pain: VAS= 0/10. F/U with our office as needed. Sammy Artis DO, MPH [facility]-Pain Management [facility]-Center for Pain Management
[2022-05-30] MEDS: Bupivacaine 0.5% Pres-Free 10 ML VIAL IJ (14:07)
[2022-05-30] MEDS: methylPREDNISolone ACETATE 40 MG/ML VIAL IJ (14:07)
[2022-05-30] MEDS: Lidocaine 2% Pres-Free 5 ML VIAL IJ (14:07)
== END 2022-05-30 12:26 | disposition home or self-care (01) ==
LOC: PC 12:26
PROVIDERS: PCP Internal Medicine; Visit Provider Preventive Medicine Occupational Medicine
DX: M47.817 Spondylosis without myelopathy or radiculopathy, lumbosacral region (principal); M54.50 Low back pain, unspecified
CPT/HCPCS: 64635; 64636; 72100; J1030; J3010

== ENCOUNTER → 2022-07-03 02:07 | Outpatient (CLI) | payer MEDICARE, MEDICAID, SELFPAY ==
--- NOTE | 2022-07-03 12:15 | DI.MRI_ITS ---
Exam(s) MR CERVICAL SPINE WO EXAM: MR CERVICAL SPINE WO CLINICAL HISTORY: OA OF C-SPINE WITH MYELOPATHY, M47.12; LT CERVICAL RADICULOPATHY, M54.12 TECHNIQUE: Multiplanar multisequence MRI of the cervical spine was performed without intravenous con trast. COMPARISON: MR MRI CERVICAL SPINE WO from 05/08/2021 FINDINGS: BONES: There again seen postsurgical changes of a C3 through C5 ACDF. Vertebral body heights are gabriella ntained. Intervertebral disc spaces are normal. There is 3.7 mm anterolisthesis of C7 on T1. Mild deg enerative endplate signal seen at several levels in the lower cervical spine. CERVICAL CORD: Craniovertebral junction is unremarkable. The cervical cord is normal size and signal intensity. SOFT TISSUES: Unremarkable. C2-3: There is prominence of the osteophyte disc complex. This causes mild narrowing of the central spinal canal. No significant right neural foraminal stenosis is seen. There does appear to be mild narrowing of the left neural foramen secondary to uncovertebral joint hypertrophy. C3-4: Bilateral uncovertebral joint hypertrophy is present causing moderate bilateral neural foramina l stenosis. Mild to moderate narrowing of the central spinal canal is present. There is prominence of the osteophyte disc complex. C4-5: No disc herniation or bulge is identified. No significant central spinal canal stenosis is seen . There is mild uncovertebral joint hypertrophy. Bilateral neural foraminal narrowing is present. C5-6: There is prominence of the osteophyte disc complex. It is eccentric to the left extending into the left neural foramen. This causes moderate left neural foraminal stenosis. No significant right neural foraminal stenosis is seen. Mild narrowing of the central spinal canal is noted. C6-7: There is mild prominence of the osteophyte disc complex. No significant central spinal canal s tenosis is seen. Degenerative changes are seen at the uncovertebral joints, left greater than right, resulting in moderate left and mild right neural foraminal stenosis. C7-T1: There is an anterolisthesis of C7 on T1 of 3.7 mm. No significant central spinal canal stenos is is noted. There does appear to be bilateral neural foraminal stenosis. There is a mild diffuse d isc bulge. There is some flattening of the anterior aspect of the spinal cord. There is normal sign al in the spinal cord. IMPRESSION: 1. Status post C3 through C5 ACDF. 2. Multilevel degenerative changes in the cervical spine resulting in central spinal canal and neural foraminal stenosis. 3. 3.7 mm anterolisthesis of C7 on T1. DATA REPOSITORY:
== END ==
PROVIDERS: PCP Internal Medicine; Visit Provider Nurse Practitioner
DX: M43.13 Spondylolisthesis, cervicothoracic region
CPT/HCPCS: 72141

== ENCOUNTER 2022-08-16 09:52 | Outpatient (CLI) | payer MEDICARE, MEDICAID, SELFPAY ==
[2022-08-16 10:01] VITALS: BP 169/89; PULSE 103; RESP 20; TEMP 36.8; O2SAT 98
--- NOTE | 2022-08-16 10:49 | PDOC.PAIN_ITS ---
Date of service: 08/16/22 Time of Service: 11:54 Pain Clinic Procedure Note Procedure Note Procedure Note: Cervical Epidural Steroid Injection Eleuterio Moore has been referred to the [facility] for cervical epidural steroid injection. COMMENTS: He is know to me as I performed several procedures on his lumbar spine. He was referred directly for this procedure by his spine surgery team at [facility]. He does have neck pain radiating down the arm and an MRI of the cervical spine with pathology. His pre-procedure pain VAS to the neck and arm are 3/10. Dx: Cervical radiculopathy Oscar was interviewed and the medical record reviewed. There were no medical, pharmacologic, radiographic or other structural contraindications to attempting fluoroscopically guided epidural steroid injection. Risks and expected side effects as well as potential benefit of the procedure were reviewed with Oscar , and Oscar voiced concerns addressed. The printed consent form was signed and witnessed. Standard time-out procedure was performed. The patient was placed in the prone position on the fluoroscopy table and automated blood pressure cuff and pulse oximeter applied. The skin entry point for entering the epidural space by a midline C7-T1 interlaminar approach was identified under fluoroscopy and marked. Following thorough Chlorhexadine preparation of the skin and draping and 1% lidocaine infiltration of the skin entry point and subcutaneous tissues, an 18 gauge Tuohy needle was placed under fluoroscopic guidance and with loss of resistance technique into the C7-T1 epidural space. Upon needle placement and loss of resistance there were no paresthesiae or return of blood or CSF through the needle. 1 cc of Omnipaque 240 was injected with clear epidural spread in the A/P, lateral and oblique views. 10 mg of preservative free Dexomethasone was injected with no unusual discomfort expressed by Oscar. This was flushed with 1 cc of normal saline. Oscar 's vital signs were stable throughout the procedure and were as recorded in the docflowsheet by the nursing staff. Follow up plans and appointments were discussed with the Oscar. Post procedure instruction was given as documented in nursing documentation and having met discharge criteria, Oscar was discharged from the Pain Management Center. COMMENTS: Post-procedure pain VAS was 0/10. This procedure can be completed 3 times per 12 months if it is found to be helpful. Sammy Artis DO, MPH [facility] [place]-Pain Management [facility]-Center for Pain Management CC: Victorino Hedrick
[2022-08-16] MEDS: Omnipaque 240 MG/ML 50 ML BTL IJ (10:51)
[2022-08-16] MEDS: Dexamethasone Sod. Phos./Pres-Free 10 MG/ML VIAL IJ (10:52)
--- NOTE | 2022-08-16 10:56 | DI.RAD_ITS ---
Exam(s) XR PAIN CLINIC CERVICAL SP 2V EXAM: XR PAIN CLINIC CERVICAL SP 2V CLINICAL HISTORY: Dx:Cervical Radiculopathy TECHNIQUE: 2D and realtime digital imaging was performed. Radiologist not present. CONTRAST MATERIAL: None. COMPARISON: No exams were available for comparison FINDINGS: Fluoroscopy was provided for pain management therapy. Please refer to procedure report or details. Cumulative dose: Ka,r=6.3 mGy IMPRESSION: RADIATION DOSE DELIVERED:
[2022-08-16 10:58] VITALS: BP 151/77; PULSE 88; RESP 14; O2SAT 99
== END 2022-08-16 09:53 | disposition home or self-care (01) ==
LOC: PC 09:52
PROVIDERS: PCP Internal Medicine; Visit Provider Preventive Medicine Occupational Medicine
DX: M54.12 Radiculopathy, cervical region (principal); M54.2 Cervicalgia
CPT/HCPCS: 62321; 72040; Q9967

== ENCOUNTER → 2022-08-29 12:48 | Outpatient (BNVA) | payer MEDICARE, MEDICAID, SELFPAY | PROVIDERS: PCP Internal Medicine; Referring Provider Internal Medicine; Visit Provider Psychiatry & Neurology Neurology | DX: G25.0 Essential tremor (principal); M48.062 Spinal stenosis, lumbar region with neurogenic claudication; E11.40 Type 2 diabetes mellitus with diabetic neuropathy, unspecified; G95.9 Disease of spinal cord, unspecified; M16.11 Unilateral primary osteoarthritis, right hip; G89.29 Other chronic pain; R29.898 Other symptoms and signs involving the musculoskeletal system; M47.816 Spondylosis without myelopathy or radiculopathy, lumbar region; Q06.8 Other specified congenital malformations of spinal cord | CPT/HCPCS: 99215; G2212 ==

== ENCOUNTER 2022-10-31 09:15 | Outpatient (REF) | payer MEDICARE, MEDICAID, SELFPAY ==
[2022-11-01 02:08] LABS: HCT 38.6 % (40.0-50.0); HGB 13.3 g/dL (13.5-17.5); MCH 31.4 pg (27.0-33.0); MCHC 34.5 % (32.0-36.0); MCV 91 fL (80-95); MPV 9.7 fL (8.0-11.0); Platelet Count 148 10^3/uL (130-400); RBC 4.24 10^6/uL (4.36-5.78); RDW 11.9 % (11.8-14.1); RDW-SD 39.7 fL; WBC 3.92 10^3/uL (4.4-10.8)
[2022-11-01 12:01] LABS: ALT 16 U/L (16-63); AST 12 U/L (15-37); Albumin 3.4 g/dL (3.4-5.0); Alkaline Phosphatase 90 U/L (46-116); Anion Gap 4.6 mmol/L (3-11); BUN 12 mg/dL (7-18); Bilirubin, Total 0.5 mg/dL (0.2-1.0); CO2 26.4 mmol/L (21.0-32.0); Calcium 8.4 mg/dL (8.5-10.1); Chloride 109 mmol/L (98-107); Estimated GFR 79.97 (mL/min/1.73m2); Glucose 216 mg/dL (74-106); NT-proBNP 59 pg/mL (<300); Potassium 4.2 mmol/L (3.5-5.1); Sodium 140 mmol/L (136-145); Total Protein 6.8 g/dL (6.4-8.2)
== END 2022-10-31 09:16 | disposition home or self-care (01) ==
LOC: NCHCN 09:15
PROVIDERS: PCP Internal Medicine; Visit Provider Internal Medicine
DX: R60.0 Localized edema (principal); R06.02 Shortness of breath
CPT/HCPCS: 80053; 85027; 83880

== ENCOUNTER 2023-01-14 13:49 | Outpatient (CLI) | payer MEDICARE, MEDICAID, SELFPAY ==
--- NOTE | 2023-01-14 13:15 | DI.RAD_ITS ---
Exam(s) XR KNEE LT 2V AP,LAT EXAM: XR KNEE LT 2V AP,LAT CLINICAL HISTORY: painful L TKR. TECHNIQUE: 2D digital imaging was performed. Two images were obtained. AP and lateral views were ob tained. COMPARISON: CR XR KNEE LT 3V AP,LAT,OSMAR from 12/27/2020 FINDINGS: BONES: There are stable post operative changes present. No fracture or dislocation. JOINTS: The orthopedic hardware is in good position. There is a small joint effusion. SOFT TISSUE: Atherosclerosis is present. There is again seen a rounded density in the posterior soft tissues. There again seen tiny densities which are well-circumscribed anteriorly which may reflect loose bodies within the joint space. IMPRESSION: 1. Stable postoperative changes. 2. Stable small round densities anteriorly which may represent loose bodies. DATA REPOSITORY: RADIATION DOSE DELIVERED:
== END 2023-01-14 13:50 | disposition home or self-care (01) ==
LOC: DIORS 13:50
PROVIDERS: PCP Internal Medicine; Referring Provider Internal Medicine; Visit Provider Physician Assistant
DX: T84.03 Mechanical loosening of internal prosthetic joint (principal); T84.84XA Pain due to internal orthopedic prosthetic devices, implants and grafts, initial encounter
CPT/HCPCS: 99213; 73560

== ENCOUNTER 2023-01-16 16:33 | Outpatient (CLI) | payer MEDICARE, MEDICAID, SELFPAY ==
--- NOTE | 2023-01-16 06:00 | DI.RAD_ITS ---
Exam(s) XR PAIN CLINIC CERVICAL SP 2V EXAM: XR PAIN CLINIC CERVICAL SP 2V CLINICAL HISTORY: Dx: Cervical Radiculopathy TECHNIQUE: 2D and realtime digital imaging was performed. CONTRAST MATERIAL: Refer to procedure report. COMPARISON: No exams were available for comparison FINDINGS: Fluoroscopy was provided for Dr. Artis during the performance of a cervical epidural steroid injectio n. Please refer to the procedure report for complete details. Ka,r=16.2 mGy IMPRESSION:
[2023-01-16 16:48] VITALS: BP 137/68; PULSE 66; RESP 20; TEMP 36.7; O2SAT 98
[2023-01-16] MEDS: Dexamethasone Sod. Phos./Pres-Free 10 MG/ML VIAL IJ (17:28)
--- NOTE | 2023-01-16 17:38 | PDOC.PAIN ---
Date of service: 01/16/23 Time of Service: 17:39 Pain Managment Procedure Note Procedure Note Procedure Note: Cervical Epidural Steroid Injection Eleuterio Moore has been referred to the [facility] for interlaminar cervical epidural steroid injection. COMMENTS: I previously evaluated him in the office. He had >3 months of >50% pain relief with his last SHIRLEY on 08/16/22. Dx: Cervical radiculopathy Pre-procedure pain VAS to the neck and arm was 7/10. Patient was interviewed and the medical record reviewed. There were no medical, pharmacologic, radiographic or other structural contraindications to attempting fluoroscopically guided epidural steroid injection. Risks and expected side effects as well as potential benefit of the procedure were reviewed and voiced concerns addressed. The printed consent form was signed and witnessed. Standard time-out procedure was performed. The patient was placed in the prone position on the fluoroscopy table and automated blood pressure cuff and pulse oximeter applied. The skin entry point for entering the epidural space by a midline C7-T1 interlaminar approach was identified under fluoroscopy and marked. Following thorough Chlorhexadine preparation of the skin and draping and 1% lidocaine infiltration of the skin entry point and subcutaneous tissues, an 18 gauge Tuohy needle was placed under fluoroscopic guidance and with loss of resistance technique into the epidural space. Upon needle placement and loss of resistance there were no paresthesiae or return of blood or CSF through the needle. 1ml of Omnipaque 240 were injected with clear epidural spread in the A/P, oblique views. 15mg of preservative-free Dexamethasone with 1ml sterile normal saline were injected through the needle with no unusual discomfort expressed. The needle was removed without difficulty. A bandage was placed. Vital signs were stable throughout the procedure and were as recorded in the docflowsheet by the nursing staff. If given, dosages of intravenous drugs for anxiolysis and analgesia were documented in MAR. Follow up plans and appointments were discussed. Post procedure instruction was given as documented in nursing documentation and having met discharge criteria and was discharged from the [facility]. COMMENTS: Post-procedure pain VAS to the neck and arm was 4/10. Sammy Artis DO, MPH [facility]-Pain Management [facility] CC: Victorino Hedrick
[2023-01-16] MEDS: Omnipaque 240 MG/ML 50 ML BTL IJ (17:48)
[2023-01-16 17:53] VITALS: BP 144/76; PULSE 77; RESP 19; O2SAT 99
== END 2023-01-16 16:34 | disposition home or self-care (01) ==
LOC: PC 16:34
PROVIDERS: PCP Internal Medicine; Visit Provider Preventive Medicine Occupational Medicine
DX: M54.12 Radiculopathy, cervical region (principal); M54.2 Cervicalgia
CPT/HCPCS: 62321; 72040; Q9967

== ENCOUNTER → 2023-02-28 12:55 | Outpatient (BNVA) | payer MEDICARE, MEDICAID, SELFPAY | PROVIDERS: PCP Internal Medicine; Visit Provider Psychiatry & Neurology Neurology | DX: G25.0 Essential tremor (principal); G62.9 Polyneuropathy, unspecified; M54.50 Low back pain, unspecified; G89.29 Other chronic pain; E11.9 Type 2 diabetes mellitus without complications; G95.9 Disease of spinal cord, unspecified; R29.898 Other symptoms and signs involving the musculoskeletal system; M48.062 Spinal stenosis, lumbar region with neurogenic claudication; M47.816 Spondylosis without myelopathy or radiculopathy, lumbar region | CPT/HCPCS: 99214 ==

== ENCOUNTER → 2023-03-21 14:32 | Outpatient (BNVA) | payer MEDICARE, MEDICAID, SELFPAY | PROVIDERS: PCP Internal Medicine; Referring Provider Internal Medicine; Visit Provider Nurse Practitioner Adult Health | DX: R41.89 Other symptoms and signs involving cognitive functions and awareness (principal) | CPT/HCPCS: 99212 ==

== ENCOUNTER → 2023-04-11 01:03 | Outpatient (CLI) | payer MEDICARE, MEDICAID, SELFPAY ==
--- NOTE | 2023-04-11 08:45 | DI.MRI_ITS ---
Exam(s) MR BRAIN WO EXAM: MR BRAIN WO CLINICAL HISTORY: memory loss, R41.3 TECHNIQUE: Multiplanar multisequence MRI of the brain was performed. COMPARISON: No exams were available for comparison FINDINGS: The examination is limited due to patient motion artifact. VENTRICLES AND EXTRA AXIAL SPACES: Normal in size and morphology for the patient's age. MIDLINE SHIFT: None. CEREBRAL PARENCHYMA: No focus of restricted diffusion to suggest acute infarct. No space-occupying le zenia identified. There are multiple areas of hyperintense signal in the white matter consistent with small vessel ischemic disease. HEMORRHAGE: None. BRAINSTEM/CEREBELLUM: Normal. CALVARIUM: Normal. VISUALIZED PARANASAL SINUSES/MASTOIDS:Clear. [place]: There is a flow void lateral to the right internal carotid artery. It measures 1.2 x 0.6 cm. PITUITARY GLAND: Unremarkable. OTHER FINDINGS: None. IMPRESSION: 1. Age-related cerebral atrophy and small vessel ischemic disease. 2. 1.2 x 0.6 cm flow void lateral to the right internal carotid artery. Possible aneurysm. MRA/CTA of the brain is recommended for further evaluation. DATA REPOSITORY:
== END ==
PROVIDERS: PCP Internal Medicine; Visit Provider Psychiatry & Neurology Neurology
DX: I67.82 Cerebral ischemia (principal); I65.21 Occlusion and stenosis of right carotid artery
CPT/HCPCS: 70551

== ENCOUNTER 2023-04-11 07:34 | Outpatient (CLI) | payer MEDICARE, MEDICAID, SELFPAY ==
[2023-04-11 07:51] VITALS: BP 125/80; PULSE 79; RESP 20; TEMP 36.6; O2SAT 99
[2023-04-11] MEDS: fentaNYL 100 MCG/2 ML VIAL IVP (08:31)
[2023-04-11] MEDS: Midazolam 2 MG/2 ML VIAL IVP (08:31)
[2023-04-11] MEDS: Lactated Ringers 500 ML 80 ML IV (08:32)
--- NOTE | 2023-04-11 09:10 | DI.RAD_ITS ---
Exam(s) XR PAIN CLINIC LUMBAR SP 2V EXAM: XR PAIN CLINIC LUMBAR SP 2V CLINICAL HISTORY: Dx: lumbar spondylosis TECHNIQUE: 2D and realtime digital imaging was performed. CONTRAST MATERIAL: Refer to procedure report. COMPARISON: No exams were available for comparison FINDINGS: Fluoroscopy was provided for Dr. Artis during the performance of a lumbar radiofrequency ablation. P lease refer to the procedure report for complete details. Ka,r=24.0 mGy IMPRESSION:
[2023-04-11 09:13] VITALS: BP 149/83; PULSE 61; RESP 18; O2SAT 96
[2023-04-11] MEDS: Bupivacaine 0.5% Pres-Free 10 ML VIAL IJ (09:17)
[2023-04-11] MEDS: Lidocaine 2% Pres-Free 5 ML VIAL IJ (09:17)
[2023-04-11] MEDS: methylPREDNISolone ACETATE 40 MG/ML VIAL IJ (09:17)
--- NOTE | 2023-04-16 06:48 | PDOC.PAIN_ITS ---
Date of service: 04/11/23 Time of Service: 10:00 Pain Managment Procedure Note Procedure Note Procedure Note: PROCEDURE NOTE BILATERAL LUMBAR RADIOFREQUENCY ABLATION Date of Service: April 11, 2023 Patient:Eleuterio Daily? Provider:? Sammy Artis DO, MPH Eleuterio Moore has been referred to the [facility] for Bilateral Lumbar Radiofrequency Ablation with the [employer].? 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 His last Hem A1c was 6.8 on 10/30/22. PROCEDURE: Radiofrequency Ablation of medial branches - bilateral L3, L4, L5 and lateral branches of bilateral S1. Eleuterio?was interviewed and the medical record was reviewed.? There were no medical, pharmacologic, radiographic or other structural contraindications to attempting fluoroscopically guided BILATERAL Lumbar Radiofrequency Ablation.?Risks and expected side effects as well as potential benefit of the procedure were reviewed with Eleuterio, and the patient's voiced concerns were addressed.? The printed consent form was signed.? Standard time-out procedure was performed. Eletuerio was brought into the fluoroscopy suite and positioned into the prone position on the fluoroscopy table and allowed to adjust to a position of comfort. A grounding pad was placed on the left abdomen. The sterile field was prepared using chlorhexidine preparation of the skin and sterile draping. Local anesthesia superficial and deep was provided by local infiltration of 2% lidocaine. A 17g 100 mm radiofrequency introducer needle was placed to the planned anatomic targets guided with intermittent fluoroscopy with a perpendicular approach to terminally place at the junction of the superior articular process and the transverse process of the bilateral L4, L5, the base of the sacral ala on the bilateral for the L5 medial branch nerve and the area between base of the sacral ala to the S1 foramen bilaterally. The stylets were removed and radiofrequency probes with a 4mm active tip were then inserted. Needle tip position of the probes was verified in the AP, oblique, and lateral views. At each site, the medial branch nerve was stimulated at 2 Hz to a maximum 1-2 volts determined to finalize safe needle and electrode placement. The patient was awake and responsive during this portion of the procedure. Each target was anesthetized with 1-2 mL of 2 % Lidocaine for anesthesia for lesioning and then each target was lesioned at 80 degrees Celsius for 2 minutes and 30 seconds. Tissue impedances were noted to be between 250 and 500 Ohms. There was no unusual discomfort expressed by Eleuterio. The needles were withdrawn without difficulty and bandages placed over the needle placement sites, the patient was observed and was without hemodynamic, neurologic, or allergic reactions. Fluoroscopic images were digitally archived. POST PROCEDURE EVALUATION: IMPRESSION: 1. Summary of procedure. Medication given is documented in the MAR. 2. Follow up plan: Eleuterio to contact [facility] as needed.?This procedure may be repeated if the patient achieves at least 50% improvement in pain/function for at least 6 months. 3. Estimated Blood Loss: <5 mls 4. Fluoroscopy time: Documented in the EMR. Follow up plans and appointments were discussed with the Eleuterio. Post procedure instruction was given as documented in nursing documentation and having met discharge criteria, Eleuterio was discharged from the [facility]. COMMENTS: No apparent complications. Post-procedure pain: VAS= 0/10. I personally completed the entire procedure. SAMMY ARTIS DO, MPH [employer] - Subspecialty board certification in Pain Medicine [facility]
== END 2023-04-11 07:35 | disposition home or self-care (01) ==
LOC: PC 07:34
PROVIDERS: PCP Internal Medicine; Visit Provider Preventive Medicine Occupational Medicine
DX: M47.817 Spondylosis without myelopathy or radiculopathy, lumbosacral region (principal); M54.50 Low back pain, unspecified
CPT/HCPCS: 64635; 64636; 72100; J1030; J2250; J3010

== ENCOUNTER 2023-04-11 14:48 | Outpatient (CLI) | payer MEDICARE, MEDICAID, SELFPAY ==
[2023-04-11 16:12] LABS: TSH (W/Ref FT4) 1.65 uIU/mL (0.36-3.74); Vitamin B12 278 pg/mL (193-986)
== END 2023-04-11 14:49 | disposition home or self-care (01) ==
LOC: LBO 14:48
PROVIDERS: PCP Internal Medicine; Visit Provider Psychiatry & Neurology Neurology
DX: R41.3 Other amnesia (principal); E11.42 Type 2 diabetes mellitus with diabetic polyneuropathy
CPT/HCPCS: 36415; 64635; 64636; 72100; 70551; 82607; 84443; J1030; J2250; J3010

== ENCOUNTER → 2023-04-17 02:15 | Outpatient (CLI) | payer MEDICARE, MEDICAID, SELFPAY ==
--- NOTE | 2023-04-17 15:15 | DI.MRI_ITS ---
Exam(s) MR ANGIO BRAIN WO CLINICAL HISTORY: ? 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 TECHNIQUE: Multiplanar multisequence MRA of the brain was performed. COMPARISON: MR MR BRAIN WO from 04/11/2023 FINDINGS: Carotid Arteries: No aneurysm, occlusion or significant stenosis. Anterior Cerebral Arteries: Right: No aneurysm, occlusion or significant stenosis. Left: No aneurysm, occlusion or significant stenosis. Middle Cerebral Arteries: Right: No aneurysm, occlusion or significant stenosis. Left: No aneurysm, occlusion or significant stenosis. Posterior Cerebral Arteries: Right: No aneurysm, occlusion or significant stenosis. Left: No aneurysm, occlusion or significant stenosis. Vertebral Arteries: Right: No aneurysm, occlusion or significant stenosis. Left: No aneurysm, occlusion or significant stenosis. Basilar Artery: No aneurysm, occlusion or significant stenosis. IMPRESSION: No aneurysm is seen on this examination. A CT scan without and with should be considered for further evaluation. The area in question may represent prominence of the adjacent bone. This would be bett er evaluated on the CT scan. DATA REPOSITORY:
--- NOTE | 2023-04-17 15:40 | DI.MRI_ITS ---
Exam(s) MR ANGIO NECK WO EXAM: MR ANGIO NECK WO CLINICAL HISTORY: ? R ICA aneurysm seen on MRI,RT CAROTID ANEURYSM,I72.0. TECHNIQUE: Multiplanar multisequence MRA of the Neck was performed. COMPARISON: No exams were available for comparison FINDINGS: Common Carotid: Right: No dissection, occlusion or significant stenosis. Left: No dissection, occlusion or significant stenosis. External Carotid: Right: No evidence of occlusion or significant stenosis. Left: No evidence of occlusion or significant stenosis. Internal Carotid: Right: No dissection, occlusion or significant stenosis. Left: No dissection, occlusion or significant stenosis. Vertebral Artery: Right: No dissection, occlusion or significant stenosis. Left: No dissection, occlusion or significant stenosis. The visualized paraspinal soft tissues are unremarkable. IMPRESSION: No evidence of dissection, occlusion or significant stenosis. DATA REPOSITORY:
== END ==
PROVIDERS: PCP Internal Medicine; Visit Provider Psychiatry & Neurology Neurology
DX: I72.0 Aneurysm of carotid artery (principal)
CPT/HCPCS: 70544; 70547

== ENCOUNTER → 2023-04-23 01:02 | Outpatient (CLI) | payer MEDICARE, MEDICAID, SELFPAY ==
--- NOTE | 2023-04-23 08:30 | DI.CT_ITS ---
Exam(s) CT BRAIN CTA EXAM: CT BRAIN CTA CLINICAL HISTORY: ?R ophth a aneurysm vs bony lesion,f/u abnl mra,r90.89. TECHNIQUE: Imaging Protocol: Axial CT angiography was performed with multi-slice acquisition and mu lti-planar and/or 3D reconstructions. CONTRAST MATERIAL: Intravenous: Omnipaque 350 Contrast volume:structured data in ml COMPARISON: MR MR BRAIN WO from 04/11/2023 FINDINGS: Internal Carotid Arteries: Petrous: Normal. Cavernous: Normal. Cerebral: Normal. Middle Cerebral Arteries: Right: No aneurysm, occlusion or significant stenosis. Left: No aneurysm, occlusion or significant stenosis. Anterior Cerebral Arteries: Right: No aneurysm, occlusion or significant stenosis. Left: No aneurysm, occlusion or significant stenosis. Posterial Cerebral Arteries: Right: No aneurysm, occlusion or significant stenosis. Left: No aneurysm, occlusion or significant stenosis. Vertebral Arteries: Right: No aneurysm, occlusion or significant stenosis. Left: No aneurysm, occlusion or significant stenosis. Basilar Artery: No aneurysm, occlusion or significant stenosis. IMPRESSION: Normal CTA examination of the [place]. 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 RADIATION DOSE DELIVERED: 1,635.97mGy.cm Total DLP DATA REPOSITORY: All CT scans at this facility are submitted to the National Radiology Data Registry (NRDR) Dose Index Registry (DIR) with the [employer] (ACR). RADIATION OPTIMIZATION: All CT scans at this facility use at least one of these dose optimization te chniques: automated exposure control; mA and/or kV adjustment per patient size (includes targeted exa ms where dose is matched to clinical indication); or iterative reconstruction.
[2023-04-23 13:25] LABS: Estimated GFR 79.47 (mL/min/1.73m2)
[2023-04-23] MEDS: Omnipaque 350 MG/ML 500 ML BTL-Imaging package IJ (14:42)
== END ==
PROVIDERS: PCP Internal Medicine; Visit Provider Psychiatry & Neurology Neurology
DX: R90.89 Other abnormal findings on diagnostic imaging of central nervous system (principal)
CPT/HCPCS: 70496; 82565

== ENCOUNTER → 2023-08-08 12:58 | Outpatient (BNVA) | payer MEDICARE, MEDICAID, SELFPAY | PROVIDERS: PCP Family Medicine; Referring Provider Family Medicine; Visit Provider Podiatrist | DX: R41.89 Other symptoms and signs involving cognitive functions and awareness (principal); E11.42 Type 2 diabetes mellitus with diabetic polyneuropathy; L60.3 Nail dystrophy; R09.89 Other specified symptoms and signs involving the circulatory and respiratory systems; L65.9 Nonscarring hair loss, unspecified; R60.0 Localized edema; M79.674 Pain in right toe(s); M79.675 Pain in left toe(s) | CPT/HCPCS: 11721 ==

== ENCOUNTER → 2023-08-15 14:51 | Outpatient (BNVA) | payer MEDICARE, MEDICAID, SELFPAY | PROVIDERS: PCP Family Medicine; Referring Provider Internal Medicine; Visit Provider Psychiatry & Neurology Neurology | DX: G25.0 Essential tremor (principal); M47.816 Spondylosis without myelopathy or radiculopathy, lumbar region; M48.061 Spinal stenosis, lumbar region without neurogenic claudication; G62.9 Polyneuropathy, unspecified; Q06.8 Other specified congenital malformations of spinal cord; G95.9 Disease of spinal cord, unspecified; M54.50 Low back pain, unspecified; M48.062 Spinal stenosis, lumbar region with neurogenic claudication; M25.551 Pain in right hip | CPT/HCPCS: 99215 ==

== ENCOUNTER → 2023-08-21 01:32 | Outpatient (CLI) | payer MEDICARE, MEDICAID, SELFPAY ==
--- NOTE | 2023-08-21 08:15 | DI.RAD_ITS ---
Exam(s) XR HIP RT COMPLETE AP PELVIS EXAM: XR HIP RT COMPLETE AP PELVIS CLINICAL HISTORY: R hip pain M25.551 PAIN RT HIP. TECHNIQUE: 2D digital imaging was performed of the right hip. Two images were obtained. AP pelvis a nd lateral right hip views were obtained. COMPARISON: CR XR HIP RT COMPLETE AP PELVIS from 12/16/2019 FINDINGS: BONES: No acute fracture is present. No bony destructive lesion is seen. JOINTS: No dislocation present. There are degenerative changes seen at the hips bilaterally. These a ppears stable compared to the prior examination. Moderately severe degenerative changes are seen in the lower lumbar spine. The sacroiliac joints appear grossly unremarkable. SOFT TISSUE: Normal. IMPRESSION: 1. Stable degenerative changes seen in the right hip. 2. Moderately severe degenerative changes seen in the visualized lower lumbar spine. DATA REPOSITORY: RADIATION DOSE DELIVERED:
== END ==
PROVIDERS: PCP Family Medicine; Visit Provider Psychiatry & Neurology Neurology
DX: M25.551 Pain in right hip (principal); M16.11 Unilateral primary osteoarthritis, right hip
CPT/HCPCS: 73502

== ENCOUNTER → 2023-08-30 00:39 | Outpatient (CLI) | payer MEDICARE, MEDICAID, SELFPAY ==
--- NOTE | 2023-08-30 08:00 | DI.MRI_ITS ---
Exam(s) MR LUMBAR SPINE WO EXAM: MR LUMBAR SPINE WO CLINICAL HISTORY: increasing claudication,LUMBAR SPINAL STENOSIS,SPONDYLOLYSIS,M47.816,. TECHNIQUE: Multiplanar multisequence MRI of the Lumbar spine was performed. COMPARISON: MR MR LUMBAR SPINE WO from 03/30/2021 FINDINGS: Five lumbar vertebrae are presumed and are numbered to correspond to the prior MRI study of March 31 Conus medullaris is again noted to be at L3 level which is lower than usual. There is no evidence of conus mass nor subjacent clumping of intrathecal nerve roots to suggest arachnoiditis. The distal t hecal sac is again noted to and at the lower S3 level. There is thin lipomatosis filum terminalis a again noted but this is not significantly thickened and there does not appear to be typical findings of tethered spinal cord. There is no evidence of fracture nor ominous osseous lesions. With respect to the individual levels... T12-L1: Mild annular bulging again noted at this level but without a dominant disc herniation and parth tral canal dimensions are normal. There is no significant foraminal stenosis at this level. This le jose is unchanged from the prior study L1-2: Normal disc height. Large anterior left-sided bridging osteophytes and smaller right-sided ost eophytes again noted. There is mild annular bulging at this level without a prominent disc herniatio n and there is no central spinal canal stenosis. There is also no foraminal stenosis at this level. This level is unchanged from the prior study. L2-3: This level again exhibits advanced attenuation of the disc space. Posterior bony ridging is ag ain noted without a new disc herniation. The posterior bony ridging is again noted to indent the ante rior aspect of the thecal sac at this level. There is no superimposed new disc herniation.Central ca nal dimensions are lower normal. There is again no significant foraminal stenosis despite the advanc ed disc height loss at this level. Mild facet arthropathy again noted.This level is unchanged from t he prior study. L3-4: This level also exhibits advanced disc height loss and there are Modic type 2 sub endplate fatt y marrow changes at this level again evident. There is again noted an element of posterior bony ridg ing and retrolisthesis of L3 upon L4, approximately 8 mm.There isalso again noted posterior protrusio n of disc material left of center and extending caudally behind the posterior longitudinal ligament a t this level for a distance of 9-10 mm behind the left side of L4 vertebral body, unchanged from the previous study. There is again noted bilateral laminectomies at this level but there is severe centr al spinal canal stenosis again noted at this level with minimal if any significant change. There is mild-moderate right-sided foraminal stenosis at this level again noted and mild left-sided foraminal stenosis, unchanged. Moderate-advanced facet arthropathy again noted. This level appears unchanged from prior study. L4-5: This level exhibits preserved disc height with mild degenerative anterolisthesis of L4 upon L5 again noted, not significantly increased from the prior study. Previously described central subligam entous disc bulge is again noted. There are bilateral laminectomies at this level but there is again noted severe central spinal canal stenosis. There are severe degenerative facet joint changes at th is level again noted and some bilateral foraminal stenosis which is unchanged from the prior study. This level appears unchanged from the prior study. L5-S1: This level again exhibits a developmentally small disc which exhibits preserved signal and no disc herniation nor canal stenosis at this level nor evidence of foraminal stenosis. There also appe ars to have been prior right laminectomy at this level. Hypertrophic bone of the left lamina and lef t side of the spinous process is unchanged. This level appears unchanged from the prior MRI study. Soft tissues: Parapelvic cysts in the kidneys are noted. IMPRESSION: 1. Multilevel findings as described individually above, with the most significant spinal canal stenos is again noted to be at L3-4 and L4-5 levels, these being the levels which have also undergone prior laminectomies. 2. Findings at all levels appear unchanged from the MRI scan of 03/30/2021 3. Also again noted is a somewhat low position of the conus medullaris which is at the L3 level here and there is a lipomatosis but not thickened filum terminal again noted but no evidence of obvious co rd tethering.
== END ==
PROVIDERS: PCP Nurse Practitioner Family; Visit Provider Psychiatry & Neurology Neurology
DX: M48.061 Spinal stenosis, lumbar region without neurogenic claudication
CPT/HCPCS: 72148

== ENCOUNTER → 2023-10-03 12:03 | Outpatient (CLI) | payer MEDICARE, MEDICAID, SELFPAY ==
--- NOTE | 2023-10-03 14:10 | DI.RAD_ITS ---
Exam(s) XR CHEST 2V PA LATERAL EXAM: XR CHEST 2V PA LATERAL CLINICAL HISTORY: eval pathology, sob, R06.02 TECHNIQUE: 2D digital imaging was performed of the chest. Two images were obtained. PA and lateral views were obtained. COMPARISON: CR CHEST 2 VIEWS PA,LAT from 06/03/2014 FINDINGS: MEDIASTINUM: Normal. HEART: Normal. PULMONARY VASCULATURE: Normal. LUNGS: Chronic interstitial fibrotic changes are seen in the lungs. No focal consolidating infiltrat es are present. The lungs appear hyperinflated suggesting underlying COPD. PLEURAL SPACE: No pleural effusion or pneumothorax. BONE:Within normal limits for the patient's age. OTHER FINDINGS:Normal. IMPRESSION: No acute pulmonary findings. DATA REPOSITORY: RADIATION DOSE DELIVERED:
== END ==
PROVIDERS: PCP Nurse Practitioner Family; Visit Provider Nurse Practitioner Family
DX: R06.02 Shortness of breath (principal)
CPT/HCPCS: 36415; 80048; 71046; 83880; 85025

== ENCOUNTER 2023-10-03 15:08 | Outpatient (CLI) | payer MEDICARE, MEDICAID, SELFPAY ==
[2023-10-03 14:46] LABS: Abs Immature Grans 0.01 10^3/uL (0.0-0.06); Absolute Basophil Count 0.01 10^3/uL (0.0-0.2); Absolute Eosinophil Count 0.04 10^3/uL (0.0-0.7); Absolute Lymphocyte Count 0.75 10^3/uL (1.2-3.4); Absolute Monocyte Count 0.26 10^3/uL (0.1-0.8); Absolute Neutrophil Count 2.86 10^3/uL (1.2-6.7); Basophils % 0.3; HCT 37.4 % (40.0-50.0); HGB 13.3 g/dL (13.5-17.5); Immature Grans % 0.3; Lymphocytes % 19.1; MCHC 35.6 % (32.0-36.0); MCV 90 fL (80-95); MPV 9.2 fL (8.0-11.0); Monocytes % 6.6; Neutrophils % 72.7; Platelet Count 156 10^3/uL (130-400); RBC 4.16 10^6/uL (4.36-5.78); RDW 11.9 % (11.8-14.1); RDW-SD 38.9 fL; WBC 3.93 10^3/uL (4.4-10.8)
[2023-10-03 15:08] LABS: Anion Gap 5.2 mmol/L (3-11); BUN 21 mg/dL (7-18); CO2 27.8 mmol/L (21.0-32.0); CREATININE 1.1 mg/dL (0.70-1.30); Calcium 8.4 mg/dL (8.5-10.1); Chloride 105 mmol/L (98-107); Estimated GFR 70.88 (mL/min/1.73m2); Glucose 224 mg/dL (74-106); NT-proBNP 30 pg/mL (<300); Potassium 4.4 mmol/L (3.5-5.1); Sodium 138 mmol/L (136-145)
== END 2023-10-03 15:09 | disposition home or self-care (01) ==
LOC: LBO 15:11
PROVIDERS: PCP Nurse Practitioner Family; Visit Provider Nurse Practitioner Family
DX: R06.02 Shortness of breath (principal)
CPT/HCPCS: 36415; 80048; 83880; 85025

== ENCOUNTER → 2023-10-23 12:52 | Outpatient (BNVA) | payer MEDICARE, MEDICAID, SELFPAY | PROVIDERS: PCP Nurse Practitioner Family; Visit Provider Psychiatry & Neurology Neurology | DX: G25.0 Essential tremor (principal); M48.062 Spinal stenosis, lumbar region with neurogenic claudication; G62.9 Polyneuropathy, unspecified; Q06.8 Other specified congenital malformations of spinal cord; M47.816 Spondylosis without myelopathy or radiculopathy, lumbar region; M48.061 Spinal stenosis, lumbar region without neurogenic claudication | CPT/HCPCS: 99214 ==

== ENCOUNTER → 2023-10-31 13:33 | Outpatient (BNVA) | payer MEDICARE, MEDICAID, SELFPAY | PROVIDERS: PCP Nurse Practitioner Family; Referring Provider Family Medicine; Visit Provider Podiatrist | DX: L60.3 Nail dystrophy (principal); B35.1 Tinea unguium; I87.2 Venous insufficiency (chronic) (peripheral); I70.203 Unspecified atherosclerosis of native arteries of extremities, bilateral legs; E11.42 Type 2 diabetes mellitus with diabetic polyneuropathy | CPT/HCPCS: 11721 ==

== ENCOUNTER → 2023-12-24 12:21 | Outpatient (BNVA) | payer MEDICARE, MEDICAID, SELFPAY | PROVIDERS: PCP Nurse Practitioner Family; Referring Provider Nurse Practitioner Family; Visit Provider Psychiatry & Neurology Neurology | DX: G25.0 Essential tremor (principal); G62.9 Polyneuropathy, unspecified; Q06.8 Other specified congenital malformations of spinal cord; G95.9 Disease of spinal cord, unspecified; M54.50 Low back pain, unspecified; M47.816 Spondylosis without myelopathy or radiculopathy, lumbar region; M48.061 Spinal stenosis, lumbar region without neurogenic claudication; M25.551 Pain in right hip | CPT/HCPCS: 93922; 99214 ==

== ENCOUNTER → 2023-12-24 13:11 | Outpatient (BNVA) | payer MEDICARE, MEDICAID, SELFPAY | PROVIDERS: PCP Nurse Practitioner Family; Referring Provider Podiatrist; Visit Provider Physical Therapy Assistant | DX: I70.203 Unspecified atherosclerosis of native arteries of extremities, bilateral legs (principal); G62.9 Polyneuropathy, unspecified | CPT/HCPCS: 93922 ==

== ENCOUNTER → 2024-02-07 00:22 | Outpatient (CLI) | payer MEDICARE, MEDICAID, SELFPAY ==
--- NOTE | 2024-02-07 | DI.MRI_ITS ---
Exam(s) MR CERVICAL SPINE WO EXAM: MR CERVICAL SPINE WO CLINICAL HISTORY: MYELOPATHY, G95.9 TECHNIQUE: Multiplanar multisequence MRI of the cervical spine was performed without intravenous con trast. COMPARISON: MR MR CERVICAL SPINE WO from 07/03/2022 FINDINGS: BONES: Vertebral body heights are maintained. Anterior cervical disc fusion is seen from C3 through C5. There also appears to be disc fusion at C6-7. There is 3 mm anterolisthesis of C7 on T1. Bone m arrow signal intensity is within normal limits. CERVICAL CORD: Craniovertebral junction is unremarkable. No new abnormal signal is seen in the spinal cord. SOFT TISSUES: Unremarkable. C2-3: There is prominence of the disc at this level. There is mild narrowing of the central spinal c anal. No significant central spinal canal or neural foraminal stenosis. C3-4: Prominent posterior osteophyte causes narrowing of the central spinal canal. The AP diameter i s 7 mm. There is flattening of the anterior spinal cord. No significant left neural foraminal steno sis. There is moderate right neural foraminal stenosis. C4-5: No disc herniation or bulge is identified. No significant central spinal canal stenosis. No si gnificant left neural foraminal stenosis. There is moderate right neural foraminal stenosis. C5-6: There is an asymmetric diffuse disc bulge toward the left. There is mild narrowing of the cent ral spinal canal. No significant right neural foraminal stenosis. Moderately severe left neural for aminal stenosis. C6-7: No disc herniation or bulge is identified. No significant central spinal canal or right neural foraminal stenosis. Moderately severe left neural foraminal stenosis. C7-T1: Mild prominence of the disc at this level. No significant central spinal canal stenosis is pr esent. Moderately severe left neural foraminal stenosis. No significant right neural foraminal sten osis. IMPRESSION: 1. Multilevel degenerative changes in the cervical spine. 2. Status post anterior cervical disc fusion from C3 through C5. 3. 3 mm anterolisthesis of C7 on T1. 4. Multilevel central spinal canal neural foraminal stenosis as described above. DATA REPOSITORY:
--- NOTE | 2024-07-28 18:00 | DI.RAD_ITS ---
Exam(s) XR CHEST 2V PA LATERAL EXAM: XR CHEST 2V PA LATERAL CLINICAL HISTORY: eval pna. TECHNIQUE: 2D digital imaging was performed. COMPARISON: CR XR CHEST 2V PA LATERAL from 10/03/2023 FINDINGS: 2 views: Heart size is upper normal. The mediastinum is not widened. There are COPD findings but no new infiltrates nor pleural effusions. No pulmonary edema. Degenerative changes at the 1st costochondral junction again noted. IMPRESSION: No acute pulmonary findings. DATA REPOSITORY: RADIATION DOSE DELIVERED:
== END ==
PROVIDERS: PCP Nurse Practitioner Family; Visit Provider Physician Assistant Surgical
DX: G95.9 Disease of spinal cord, unspecified (principal); G99.2 Myelopathy in diseases classified elsewhere
CPT/HCPCS: 72141

== ENCOUNTER → 2024-03-02 19:49 | Outpatient (CLI) | payer MEDICARE, MEDICAID, SELFPAY ==
--- NOTE | 2024-03-02 16:00 | DI.RAD_ITS ---
Exam(s) XR LUMBAR SPINE COMPLETE EXAM: XR LUMBAR SPINE COMPLETE CLINICAL HISTORY: evaluate patholgy, low back pain, M54.50. TECHNIQUE: 2D digital imaging was performed. COMPARISON: MR MR LUMBAR SPINE WO from 03/30/2021 FINDINGS: Five views. No evidence of acute fracture. There is degenerative anterolisthesis L4 upon L5 and there is sacrali zation of the L5 segment with rudimentary L5-S1 disc space evident. There is advanced narrowing the L3-4 disc space and L2-3 disc space. Relative preservation of disc h eight at L1-2. Large left-sided bridging osteophytes at L1-2 and L4-5. No osseous lesions. No scoliosis. Sacroiliac joints appear unremarkable. IMPRESSION: Multilevel chronic degenerative disc disease. Also degenerative anterolisthesis L4 upon L5 related t o facet arthropathy. There appears to have been prior laminectomies. DATA REPOSITORY: RADIATION DOSE DELIVERED:
--- NOTE | 2024-03-02 16:00 | DI.RAD_ITS ---
Exam(s) XR THORACIC SPINE COMPLETE EXAM: XR THORACIC SPINE COMPLETE CLINICAL HISTORY: evaluate pathology, acute thoracic back pain, M54.6. TECHNIQUE: 2D digital imaging was performed. COMPARISON: No exams were available for comparison FINDINGS: 3 views No evidence of compression fracture or listhesis of the thoracic vertebrae. There is a fusion plate in the anterior cervical spine across 3 levels which appear to be C3-4-5. Some disc space narrowing is noted below this level. There is no scoliosis in the thoracic spinal column. No osseous lesions. No abnormal widening of th e paraspinal lines. IMPRESSION: Mild degenerative changes. Cervical fusion plate. DATA REPOSITORY: RADIATION DOSE DELIVERED:
--- NOTE | 2024-03-02 17:45 | DI.VRAD_ITS ---
PROCEDURE INFORMATION: Exam: XR Thoracic Spine Exam date and time: 03/02/2024 4:50 PM Age: 74 years old Clinical indication: Injury or trauma; Fall; Blunt trauma (contusions or hematomas) TECHNIQUE: Imaging protocol: Radiologic exam of the thoracic spine. Views: 3 views. COMPARISON: MR CERVICAL SPINE WO 02/07/2024 1:26 PM FINDINGS: Bones/joints: Mild thoracic dextroscoliosis. Otherwise normal alignment. Vertebral body heights are preserved. Bones appear demineralized. Squaring of vertebral bodies and anterior longitudinal ligament calcification, likely compatible with ankylosing spondylitis; findings are similar to the October 03, 2023 chest x-ray. Bridging osteophytes anteriorly at upper and lower thoracic vertebral body levels. No detectable acute fracture. Soft tissues: Unremarkable. IMPRESSION: 1. Squaring of vertebral bodies and anterior longitudinal ligament calcification, likely compatible with ankylosing spondylitis; findings are similar to the October 03, 2023 chest x-ray. Evidence of rigid spine increases risk for acute traumatic injury however, no detectable acute fracture. Advised low threshold for follow-up MR imaging 2. See concurrent dedicated lumbar spine imaging Dictated and Authenticated by: Елена Dewitt MD. Ordering:LAWRENCE Carmen MD
--- NOTE | 2024-03-02 17:54 | DI.VRAD_ITS ---
PROCEDURE INFORMATION: Exam: XR Lumbosacral Spine Exam date and time: 03/02/2024 4:51 PM Age: 74 years old Clinical indication: Injury or trauma; Fall; Blunt trauma (contusions or hematomas) TECHNIQUE: Imaging protocol: Radiologic exam of the lumbosacral spine. Views: 4 or 5 views. COMPARISON: MR LUMBAR SPINE WO 08/30/2023 1:55 PM FINDINGS: Prior laminectomy, likely at L3 and L4 levels. 7 mm of anterolisthesis of L4 on L5, likely degenerative; no detectable pars defects.. Otherwise Alignment is essentially anatomic. No acute fracture seen. The vertebral body heights are preserved. No aggressive bone lesion. Advanced multilevel degenerative change the spine with disc space narrowing, facet arthropathy, bulky osteophytes, resulting in multilevel central and foraminal stenosis. No significant soft tissue abnormality. IMPRESSION: Severe multilevel degenerative changes. No detectable acute traumatic injury. Advised to low threshold for MRI correlation Dictated and Authenticated by: Елена Dewitt MD. Ordering:LAWRENCE Carmen MD
== END ==
PROVIDERS: PCP Nurse Practitioner Family; Visit Provider Nurse Practitioner Family
DX: M54.50 Low back pain, unspecified; Z98.1 Arthrodesis status; M51.34 Other intervertebral disc degeneration, thoracic region; M51.36 Other intervertebral disc degeneration, lumbar region; M43.16 Spondylolisthesis, lumbar region
CPT/HCPCS: 72072; 72110

== ENCOUNTER → 2024-03-04 13:30 | Outpatient (BNVA) | payer MEDICARE, MEDICAID, SELFPAY | PROVIDERS: PCP Nurse Practitioner Family; Referring Provider Nurse Practitioner Family; Visit Provider Podiatrist | DX: E11.42 Type 2 diabetes mellitus with diabetic polyneuropathy (principal); L60.3 Nail dystrophy; B35.1 Tinea unguium; I70.203 Unspecified atherosclerosis of native arteries of extremities, bilateral legs; I87.2 Venous insufficiency (chronic) (peripheral); R41.89 Other symptoms and signs involving cognitive functions and awareness; M79.674 Pain in right toe(s); M79.675 Pain in left toe(s) | CPT/HCPCS: 11721 ==

== ENCOUNTER 2024-03-20 00:30 | Outpatient (CLI) | payer MEDICARE, MEDICAID, SELFPAY ==
--- NOTE | 2024-03-20 07:45 | DI.MRI_ITS ---
Exam(s) MR LOWER JOINT RT WO EXAM: MR LOWER JOINT RT WO CLINICAL HISTORY: R hip OA vs radiculopathy,m16.11 TECHNIQUE: Multiplanar multisequence MRI of Pelvis was performed COMPARISON: CR XR HIP RT COMPLETE AP PELVIS from 08/21/2023 FINDINGS: Bones: There is no fracture or contusion pattern. No bone marrow edema is seen. Bilateral acetabula r spurring. Degenerative cysts in the left posterior acetabulum. Joints: No significant joint effusion or gross labral defect is present. Degenerative changes of the labrum are noted bilaterally. The SI joints show some bony bridging superiorly. Musculotendinous structures: Musculotendinous structures demonstrate no abnormality. Intrapelvic structures: Enlarged prostate. Distended urinary bladder with trabeculated wall. No mas s is visible. IMPRESSION: Degenerative changes of the acetabula bilaterally. Degenerative cysts noted in the posterior left ac etabulum. No gross evidence of labral tear although the evaluation is limited without joint effusion or intra-articular contrast. DATA REPOSITORY:
--- NOTE | 2024-03-20 07:51 | DI.CT_ITS ---
Exam(s) CT LUMBAR SPINE WO EXAM: CT LUMBAR SPINE WO CLINICAL HISTORY: prior surgery,TEHTERED CORD,SPONDYLOSIS, q06.8,m47.816. TECHNIQUE: Imaging Protocol: Axial computed tomography images with coronal and sagittal reformatted images were created and reviewed COMPARISON: MR MR LUMBAR SPINE WO from 08/30/2023 CR,XR XR LUMBAR SPINE COMPLETE from 03/02/2024 FINDINGS: Bones: The last intervertebral disc space is designated the L5/S1 level for the numbering purpose of this examination. The vertebral body heights are well maintained. Prominent endplate osteophytes mainly projecting ant eriorly and laterally. Small osteophytes project posteriorly at L2-3 through L4-5. Alignment: No significant scoliosis. Minimal spondylolisthesis at L4-5, secondary to facet degenerat yessenia changes. No fracture is seen. T12-L1: Minimal disc bulging. L1-2: Mild disc bulging. L2-3: Marked loss of disc height. Osteophytes project posteriorly into the central canal causing mi ld central canal stenosis. Mild bilateral neural foraminal narrowing. L3-4: Marked loss of disc height. Endplate osteophytes projecting posteriorly. Facet degenerative changes. Moderate central canal stenosis. Moderate to severe bilateral neural foraminal narrowing. L4-5: Disc height is maintained. Disc osteophytes. Calcification in the posterior aspect of the di sc. Prominent facet degenerative changes. Prior laminectomy. Severe central canal stenosis. Sever e bilateral neural foraminal narrowing. L5-S1: Rudimentary disc.. Right laminectomy. No central canal stenosis or neural foraminal narrow ing. The visualized SI joints and sacrum are will maintained. Soft Tissues: The paraspinal soft tissues are unremarkable. The prostate is enlarged. The urinary bladder is distended and shows thickened trabeculated wall. Retroaortic left renal vein. IMPRESSION: Extensive degenerative degenerative changes as well as postsurgical changes. Severe central canal st enosis as well as bilateral neural foraminal narrowing noted at L4-5. RADIATION DOSE DELIVERED: Total DLP DATA REPOSITORY: All CT scans at this facility are submitted to the National Radiology Data Registry (NRDR) Dose Index Registry (DIR) with the [employer] (ACR). RADIATION OPTIMIZATION: All CT scans at this facility use at least one of these dose optimization te chniques: automated exposure control; mA and/or kV adjustment per patient size (includes targeted exa ms where dose is matched to clinical indication); or iterative reconstruction.
== END 2024-03-20 00:50 ==
LOC: DI 00:31
PROVIDERS: PCP Nurse Practitioner Family; Visit Provider Psychiatry & Neurology Neurology
DX: M47.816 Spondylosis without myelopathy or radiculopathy, lumbar region; M16.11 Unilateral primary osteoarthritis, right hip
CPT/HCPCS: 73721; 72131

== ENCOUNTER → 2024-03-24 12:20 | Outpatient (BNVA) | payer MEDICARE, MEDICAID, SELFPAY | PROVIDERS: PCP Nurse Practitioner Family; Visit Provider Psychiatry & Neurology Neurology | DX: G25.0 Essential tremor (principal); G62.9 Polyneuropathy, unspecified; Q06.8 Other specified congenital malformations of spinal cord; G95.9 Disease of spinal cord, unspecified; M54.50 Low back pain, unspecified; G47.10 Hypersomnia, unspecified; M25.551 Pain in right hip; M47.816 Spondylosis without myelopathy or radiculopathy, lumbar region; M48.061 Spinal stenosis, lumbar region without neurogenic claudication | CPT/HCPCS: 99215 ==

== ENCOUNTER 2024-04-08 01:45 | Outpatient (CLI) | payer MEDICARE, MEDICAID, SELFPAY ==
--- NOTE | 2024-04-08 14:30 | DI.US_ITS ---
APPROVED REPORT EXAM: Comprehensive 2D, Doppler, and color-flow Echocardiogram Patient Location: Out-Patient Network Operations Specialist: Deborah Willis RDCS (AE) Indications: Cardiac murmur Other Information Study Quality: Adequate Conclusion Normal left ventricular wall thickness and chamber size. Ejection fraction is 55 to 60%. Wall motio n is normal Normal right ventricular size and function Both atria are normal in size There is no structural or hemodynamically significant valvular disease Estimated right ventricular systolic pressure is 20 mmHg Wall motion Left Ventricle The left ventricle is normal size. The left ventricular systolic function is normal. The left ventric ular ejection fraction is within the normal range. There is normal left ventricular wall thickness. T here is normal LV segmental wall motion. There is no ventricular septal defect visualized. LVEF is 55 -60%. Right Ventricle Right ventricle is grossly normal in size. Right ventricular systolic function is grossly normal. Atria The left atrium size is normal. The right atrium size is normal. The interatrial septum is intact wit h no evidence for an atrial septal defect. Aortic Valve The aortic valve is normal in structure. Aortic valve is trileaflet. There is no aortic valvular sten osis. No aortic regurgitation is present. Mitral Valve The mitral valve is normal in structure. No evidence of mitral valve stenosis. Trace mitral regurgita tion. Tricuspid Valve The tricuspid valve is normal in structure. There is no tricuspid valve stenosis. Trace tricuspid reg urgitation. The RVSP is 20.5 mmHg. Pulmonic Valve The pulmonary valve is normal in structure. There is no pulmonic valvular stenosis. Trace pulmonic re gurgitation. Great Vessels The aortic root is normal in size. The ascending aorta is normal in size. Aortic arch is normal in ca liber. IVC is normal in size and collapses >50% with inspiration. Pericardium There is no pericardial effusion. 2D Dimensions IVSD d PLAX 1.10 cm M: 0.6-1.2 Ao Root d 3.46 cm M: 3.1 - 3.7 LVPW d PLAX 1.13 cm M: 0.6 - 1.2 Ao Asc Diam d 3.40 cm M: 2.6 - 3.4 LVID d PLAX 5.00 cm M: 4.2 - 5.8 LVDs 3.50 cm M: 2.5 - 4.0 LV EF Teichholz 56.8 % FS 29.89 % LV EDV (Teich) 117.8 mL LV ESV (Teich) 50.9 mL M-Mode TAPSE 2.26 cm (M/F) >1.7 Auto EF LV EDV A4C 136.9 mL LV EDV A2C 148.6 mL LV EDV BP 142.2 mL LV ESV A4C 62.9 mL LV ESV A2C 64.9 mL LV ESV BP 64.2 mL LVEF(%) A4C 54.1 % LVEF(%) A2C 56.4 % LVEF(%) BP 54.9 % LV SV A4C 74.0 ml LV SV A2C 83.7 ml LV SV BP 78.0 ml LV CO A4C 4.0 L/min LV CO A2C 4.6 L/min LV CO BP 4.3 L/min HR A4C 53.57 BPM HR A2C 55.47 BPM LV EDV Index (BP) LA Volume LA Length A4C 5.4 cm LA Length A2C 4.5 cm LA Area A4C s 17.84 cm2 LA Area A2C s 19.29 cm2 LA Vol A4C A-L 49.91 mL LA Vol A2C A-L 70.48 mL LA Vol Biplane A-L 65.2 mL LA Vol/BSA A4C A-L LA Vol/BSA A2C A-L LA Vol/BSA BP A-L 30.0 mL/m2 LA Vol A4C MOD 46.3 mL LA Vol A2C MOD 63.1 mL LA Vol BP MOD 59.3 mL RA Volume RA Area A4C 14.2 cm2 RA ESV A4C (A-L) 36.4mL RA Vol/BSA A4C A-L RA Length A4C 4.7 cm RA ESV A4C (MOD) 33.1mL LV Diastology MV E' medial 0.087 (>0.07 m/s) MV E Vmax 0.83 (0.4-1.3 m/s) MV E/E' MED 9.44 (<14) MV A Vmax 1.10 (0.4-1.3 m/s) MV E' lateral 0.090 (>0.1 m/s) E/A Ratio 0.8 MV E/E' LAT 9.16 (<14) MV E' Average 0.089 m/s MV E/E'(average) 9.29 Aortic Valve AoV Vmax 1.34 m/s LVOT Vmax 0.92 m/s AoV Peak Grad 7.2 mmHg LVOT Peak Grad 3.4 mmHg AoV Area (Vmax) 2.03 cm2 LVOT VTI 0.211 m AoV VTI 0.291 m LVOT Mean Grad 1.8 mmHg AoV Mean Liborio. 0.89 m/s LVOT SV 62.16 mL AoV Mean Grad 3.7 mmHg LVOT Diam s 1.90 cm AoV Area (VTI) 2.14 cm2 AV Regurg Peak Gr. 7.18 mmHg Velocity Ratio 0.69 Mitral Valve MV DT 206 (160-240 msec) MV Vmax TIPS 0.98 m/s MV Mean Grad 1.5 (<2mmHg) MV VTI 0.359 m Pulmonary Valve PV Vmax 1.37 (0.5-1.5 m/s) RVOT Vmax 0.71 m/s PV Peak Grad 7.5 mmHg RVOT Peak Gr. 2.0 mmHg PV Mean Liborio 0.83 m/s RVOT VTI 0.171 m PV Mean Grad 3.2 mmHg RVOT Mean Gr. 1.1 mmHg Tricuspid Valve RA Pressure 3.00 mmHg TR Vmax 2.09 m/s TV S' 0.14 m/s TR Peak Grad 17.5 mmHg RVSP (TR) 20.5 mmHg
== END 2024-04-08 02:05 ==
LOC: DI 01:45
PROVIDERS: PCP Nurse Practitioner Family; Visit Provider Family Medicine
DX: R01.1 Cardiac murmur, unspecified (principal)
CPT/HCPCS: 93306

== ENCOUNTER → 2024-06-15 14:17 | Outpatient (BNVA) | payer MEDICARE, MEDICAID, SELFPAY | PROVIDERS: PCP Nurse Practitioner Family; Referring Provider Nurse Practitioner Family; Visit Provider Student in an Organized Health Care Education/Training Program | DX: M16.11 Unilateral primary osteoarthritis, right hip (principal) | CPT/HCPCS: 99213 ==

== ENCOUNTER → 2024-06-24 14:48 | Outpatient (BNVA) | payer MEDICARE, MEDICAID, SELFPAY | PROVIDERS: PCP Nurse Practitioner Family; Referring Provider Nurse Practitioner Family; Visit Provider Psychiatry & Neurology Neurology | DX: G25.0 Essential tremor (principal); M47.816 Spondylosis without myelopathy or radiculopathy, lumbar region; G62.9 Polyneuropathy, unspecified; Q06.8 Other specified congenital malformations of spinal cord; G95.9 Disease of spinal cord, unspecified; M54.50 Low back pain, unspecified; M48.062 Spinal stenosis, lumbar region with neurogenic claudication; M25.551 Pain in right hip; G47.10 Hypersomnia, unspecified | CPT/HCPCS: 99214 ==

== ENCOUNTER → 2024-06-29 13:27 | Outpatient (BNVA) | payer MEDICARE, MEDICAID, SELFPAY | PROVIDERS: PCP Nurse Practitioner Family; Referring Provider Nurse Practitioner Family; Visit Provider Nurse Practitioner Adult Health | DX: G56.22 Lesion of ulnar nerve, left upper limb (principal); G56.02 Carpal tunnel syndrome, left upper limb | CPT/HCPCS: 95909; 99214 ==

== ENCOUNTER → 2024-07-02 14:41 | Outpatient (BNVA) | payer MEDICARE, MEDICAID, SELFPAY | PROVIDERS: PCP Nurse Practitioner Family; Referring Provider Nurse Practitioner Family | DX: M16.11 Unilateral primary osteoarthritis, right hip (principal) | CPT/HCPCS: 20611; J1010 ==

== ENCOUNTER 2024-07-28 17:48 | Outpatient (REF) | payer MEDICARE, MEDICAID, SELFPAY | END 2024-07-28 18:08 | LOC: DI 17:48 | PROVIDERS: PCP Nurse Practitioner Family; Visit Provider Nurse Practitioner Family | DX: J18.9 Pneumonia, unspecified organism (principal) | CPT/HCPCS: 71046 ==

== ENCOUNTER 2024-10-15 15:05 | Outpatient (REF) | payer MEDICARE, MEDICAID, SELFPAY ==
[2024-10-15 19:55] LABS: Abs Immature Grans 0.01 10^3/uL (0.0-0.06); Absolute Basophil Count 0.02 10^3/uL (0.0-0.2); Absolute Eosinophil Count 0.09 10^3/uL (0.0-0.7); Absolute Lymphocyte Count 0.79 10^3/uL (1.2-3.4); Absolute Monocyte Count 0.31 10^3/uL (0.1-0.8); Absolute Neutrophil Count 2.06 10^3/uL (1.2-6.7); Basophils % 0.6 %; Eosinophils % 2.7 %; HCT 37.1 % (40.0-50.0); HGB 12.9 g/dL (13.5-17.5); Immature Grans % 0.3 %; Lymphocytes % 24.1 %; MCH 32.2 pg (27.0-33.0); MCHC 34.8 % (32.0-36.0); MCV 93 fL (80-95); Monocytes % 9.5 %; Neutrophils % 62.8 %; Platelet Count 140 10^3/uL (130-400); RBC 4.01 10^6/uL (4.36-5.78); RDW 12.2 % (11.8-14.1); RDW-SD 41.8 fL; WBC 3.28 10^3/uL (4.4-10.8)
== END 2024-10-15 15:06 | disposition home or self-care (01) ==
LOC: NCHCN 15:05
PROVIDERS: PCP Nurse Practitioner Family; Visit Provider Nurse Practitioner Family
DX: D64.9 Anemia, unspecified (principal)
CPT/HCPCS: 85025

== ENCOUNTER 2024-10-19 02:32 | Outpatient (CLI) | payer MEDICARE, MEDICAID, SELFPAY ==
--- NOTE | 2024-10-19 | DI.NM_ITS ---
APPROVED REPORT Exam: Pharmacologic Patient Location: Out-Patient Room/Bed: Stress Nurse: Ashanti Rogers RN Ordering Provider:SHAINA BOCANEGRA, Contact Number: [phone] BMI: 29.83 Baseline Rhythm: Sinus Rhythm Indications: dyspnea on exertion Medical History Medical History: DM2, lipoprotein deficiency disorder, impaired cognition, depression, essential trem or, chronic pain, GERD, BPH, spinal stenosis, fibromyalgia, balance impairment, anemia Cardiac Medications: aspirin, atorvastatin, glimepiride, propanolol, solifenacin, flomax, tramadol, g emtesa, cyclobenzaprine, albuterol sulfate Allergies: NKDA Cardiac Risk Factors: family hx, diabetes, HLD, PVD Previous Cardiac Procedures: none Pretest Chest Pain Characteristics: No chest pain Exercise History: Sedentary Physical Disabilities: Back Lung Sounds: Clear to auscultation Heart Sounds: Regular Stress Test Details Test: Pharmacologic stress testing performed using 0.4 mg of regadenoson per 5 mL given IV over 10 s econds. Reason for pharmacologic stress test: physical limitation. Nuclear Acquisition: Rest Tc-99m/Stress Tc-99m 1 day Rest Isotope: Tc-99m Sestamibi. Dose: 10.0 Date: 10/19/2024 Injection Time: 1100 Stress Isotope: Tc-99m Sestamibi. Dose: 30.0 Date: 10/19/2024 Injection Time: 1257 HR Resting HR Supine: 64 bpm Max Heart Rate (APMHR): 146 bpm Target HR (85% APMHR): 124 bpm Max HR Achieved: 89 bpm % of APMHR: 61 Recovery HR: 78 bpm BP Resting BP Supine: 154/72 mmHg Max BP: 154/72 mmHg Recovery BP: 144/70 mmHg ECG Resting ECG: Sinus Rhythm Comment: inverted T wave in lead III Stress ECG: Sinus Rhythm ST Change: Nondiagnostic low heart rate Arrhythmia: inverted T wave lead III, rare PVCs Recovery ECG: Sinus Rhythm Recovery ST Change: Nondiagnostic low heart rate Recovery Arrhythmia: inverted T wave lead III Clinical Stress Symptoms: Abdominal discomfort, Headache Angina Score: None Rate Pressure Product: 72225 Stress ECG Conclusion 1. Resting electrocardiogram showed minor nondiagnostic ST-T abnormalities 2. Patient underwent testing using low-level exercise and pharmacologic stress with regadenoson 3. Peak heart rate achieved to 61% of maximal predicted for age 4. The electrocardiographic portion of the test was nondiagnostic 5. See MPI report Stress Test Summary STAGE HR BP SpO2 Symptoms NOTES Supine 64 154/72 98 1 min post Lexiscan injection 80 140/70 98 3/10 abdominal discomfort 3 min post Lexiscan injection 81 146/72 6 min post Lexiscan injection 78 144/70 98 Pt had mild nausea/abdominal discomfort and a mild headache at end of test. Pt left ambulatory in no acute distress. VSS MPI Conclusion Myocardial perfusion is normal. There is no ischemia or evidence of prior infarction Ejection fraction is 60% with normal wall motion
[2024-10-19] MEDS: Regadenoson 0.4 MG/5 ML SYR IVP (12:57)
== END 2024-10-19 02:52 ==
LOC: DI 02:32
PROVIDERS: PCP Nurse Practitioner Family; Visit Provider Nurse Practitioner Family
DX: R06.09 Other forms of dyspnea (principal)
CPT/HCPCS: 78452; 93016; 93018; 93017; J2785

== ENCOUNTER → 2024-11-10 13:14 | Outpatient (BNVA) | payer MEDICARE, MEDICAID, SELFPAY | PROVIDERS: PCP Nurse Practitioner Family; Referring Provider Nurse Practitioner Family; Visit Provider Psychiatry & Neurology Neurology | DX: G25.0 Essential tremor (principal); M47.816 Spondylosis without myelopathy or radiculopathy, lumbar region; G62.9 Polyneuropathy, unspecified; Q06.8 Other specified congenital malformations of spinal cord; G95.9 Disease of spinal cord, unspecified; M54.50 Low back pain, unspecified; M48.062 Spinal stenosis, lumbar region with neurogenic claudication; M25.551 Pain in right hip; G47.10 Hypersomnia, unspecified | CPT/HCPCS: 99214 ==

== ENCOUNTER 2024-12-29 15:01 | Emergency (ER) | payer MEDICARE, MEDICAID, SELFPAY ==
[2024-12-29 15:03] VITALS: BP 192/69; PULSE 72; RESP 16; TEMP 36.6; O2SAT 98
[2024-12-29 15:07] VITALS: BP 192/69; PULSE 72; RESP 16; TEMP 36.6; O2SAT 98
--- NOTE | 2024-12-29 15:29 | W.ED.GENAD ---
Discharge Plan Disposition Patient Disposition: Home Discharge Details Clinical Impression: Hematuria Primary Care Provider: RACHEL SUAZO ED Provider: Stephanie Wang Home Meds and New Rx's Prescriptions: No Action solifenacin [Vesicare] 10 mg tablet 10 mg PO DAILY capsaicin 0.1 % cream 1 applic topical TID PRN (Reason: pain relief) Qty: 60 3RF Rx Instructions: do not wash area for at least 30 min after application ketoconazole 2 % cream 1 applic topical DAILY Qty: 120 6RF Rx Instructions: Apply to toenails once daily albuterol sulfate 90 mcg/actuation HFA aerosol inhaler 2 puff inhalation Q6H PRN (Reason: shortness of breath or wheezing) Qty: 6.7 0RF (DME) Aerochamber MV Spacer See Rx Instructions .Route Qty: 1 0RF Rx Instructions: As directed Gemtesa 75 mg tablet 75 mg PO DAILY Myrbetriq 8 mg/mL suspension,extended rel recon PO chlorhexidine gluconate 0.12 % mouthwash 15 ml buccal BID Qty: 1200 0RF Rx Instructions: swish and spit 15ml every 12 hours diazepam 5 mg tablet 5 mg PO BID PRN propranolol 60 mg capsule,extended release 24 hr 60 mg PO DAILY Qty: 90 3RF acetaminophen 325 MG tablet 650 mg PO Q4H PRN Rx Instructions: Elevated Temp/mild pain. Total daily dose not to exceed 3g daily. tramadol 50 MG tablet 50 mg PO DAILY PRN atorvastatin 20 mg Tablet 20 mg PO QPM tamsulosin 0.4 MG capsule 0.8 mg PO HS glimepiride 4 mg tablet 8 mg PO DAILY cyclobenzaprine 10 mg tablet 5 mg PO QHS PRN aspirin 81 mg Tablet,Delayed Release (Dr/Ec) 81 mg PO DAILY Discharge Instructions Instructions: Blood in Urine (Hematuria), Adult ED Additional Instructions: Your urinalysis does have sign of blood, but no signs of infection. Sometimes when you have blood in your urine, it can prevent you from urinating effectively. If you feel like you are unable to void, please return to the emergency department for reevaluation The bleeding may be coming from the spot on your foreskin that I pointed out to you. Please start to apply some Aquaphor to this area and monitor for any worsening. You have been referred to urology for close follow-up for further evaluation of your hematuria. Discharge Data Discharge Date/Time-TO BE ENTERED AT DEPARTURE: 12/29/24 16:09 HPI General Date/Time Provider Initiated Documentation: 12/29/24 15:12. Limitations to Documentation: no limitations. Information obtained by: patient. HPI Narrative: 74-year-old gentleman with past medical history of diabetes, lumbar spine issues and recent surgery presents for evaluation of hematuria. He states that he has been monitoring his urine closely since his back surgery due to decreased urine output which has been improving. He states that today he urinated in a urinal and noted that there was blood. He reports that the blood was noted mostly on his penis, but that the urine also looked a little bit dark. He denies any pain or trauma to the penis. Has been having some intermittent symptoms concerning for possible urinary tract infection including dysuria he does report that he, urgency and frequency. He denies any abdominal pain or fever. Related Data Home Medications ?Medication ?Instructions ?Recorded ?Confirmed tamsulosin 0.4 mg capsule 0.8 mg PO HS 03/03/14 12/29/24 acetaminophen 325 mg tablet 650 mg PO Q4H PRN 01/10/18 12/29/24 tramadol 50 mg tablet 50 mg PO DAILY PRN 01/10/18 12/29/24 aspirin 81 mg tablet,delayed 81 mg PO DAILY 11/20/20 12/29/24 release atorvastatin 20 mg tablet 20 mg PO QPM 10/17/21 12/29/24 solifenacin 10 mg tablet (Vesicare) 10 mg PO DAILY 10/10/22 12/29/24 chlorhexidine gluconate 0.12 % 15 ml buccal BID #1,200 mL 02/15/23 12/29/24 mouthwash cyclobenzaprine 10 mg tablet 5 mg PO QHS PRN 03/07/23 12/29/24 glimepiride 4 mg tablet 8 mg PO DAILY 03/07/23 12/29/24 capsaicin 0.1 % topical cream 1 applic topical TID PRN pain 03/08/23 12/29/24 relief #60 grams albuterol sulfate 90 mcg/actuation 2 puff inhalation Q6H PRN 10/02/23 12/29/24 aerosol inhaler shortness of breath or wheezing #6.7 grams inhalational spacing device #1 ea 10/02/23 12/29/24 (Aerochamber MV spacer) ketoconazole 2 % topical cream 1 applic topical DAILY #120 grams 10/31/23 12/29/24 vibegron 75 mg tablet (Gemtesa) 75 mg PO DAILY 01/21/24 11/10/24 diazepam 5 mg tablet 5 mg PO BID PRN 11/10/24 12/29/24 propranolol 60 mg capsule,24 60 mg PO DAILY #90 caps 11/10/24 12/29/24 hr,extended release mirabegron 8 mg/mL oral mg PO 12/29/24 12/29/24 suspension,extended release (Myrbetriq) Previous Rx's ?Medication ?Instructions ?Recorded chlorhexidine gluconate 0.12 % 15 ml buccal BID #1,200 mL 02/15/23 mouthwash capsaicin 0.1 % topical cream 1 applic topical TID PRN pain 03/08/23 relief #60 grams albuterol sulfate 90 mcg/actuation 2 puff inhalation Q6H PRN 10/02/23 aerosol inhaler shortness of breath or wheezing #6.7 grams inhalational spacing device #1 ea 10/02/23 (Aerochamber MV spacer) ketoconazole 2 % topical cream 1 applic topical DAILY #120 grams 10/31/23 propranolol 60 mg capsule,24 60 mg PO DAILY #90 caps 11/10/24 hr,extended release Allergies Allergy/AdvReac Type Severity Reaction Status Date / Time No Known Allergies Allergy Verified 12/29/24 14:05 General Stated Complaint: Urinary ALFRED: 4 Exam Narrative Exam Narrative: Review of Systems: All systems reviewed & are unremarkable except as noted in HPI and below Well-developed, no acute distress NCAT Nondistended abdomen, soft non tender exam (performed with BOARD OF EDUCATION SECRETARY rn placement) uncircumcised penis, there is a small area of abrasion along foreskin at 9 o'clock Course Vital Signs Vital signs: Vital Signs Temperature 36.6 C 12/29/24 15:03 Pulse 72 12/29/24 15:03 Respiratory Rate 16 12/29/24 15:03 Blood Pressure 192/69 H 12/29/24 15:03 Pulse Oximetry 98 12/29/24 15:03 Temperature 36.6 C 12/29/24 15:07 Pulse 72 12/29/24 15:07 Respiratory Rate 16 12/29/24 15:07 Blood Pressure 192/69 H 12/29/24 15:07 Pulse Oximetry 98 12/29/24 15:07 Pain Level 0 12/29/24 15:07 Comment pt reports bp this am was 132/70 12/29/24 15:07 Medical Decision Making Emergent evaluation of hematuria. Patient does endorse some symptoms concerning for a UTI. Also consider trauma versus malignancy. there is a small area of skin abrasion on the foreskin, but no obvious lacerations or sign of active bleeding. Urinalysis obtained. There is blood noted without any signs of infection. Do not feel antibiotics is indicated at this time. I recommend close monitoring of this abrasion on the penis as it may be the cause of his bleeding. Furthermore he has been referred to close urology follow-up. Return precautions and signs and symptoms concerning for urinary retention discussed with patient. Quality:SDOH Health Related Social Needs: No Data to Display PFSH All Active Problems (Updated 12/29/24 @ 15:59 by Stephanie Wang MD) Hematuria (Acute) Bilateral tinnitus (Acute) Degenerative joint disease of right hip (Chronic) Hypersomnia (Acute) Onychomycosis (Acute) Atherosclerosis of artery of both lower extremities (Acute) Housing instability (Acute) Gastroesophageal reflux disease without esophagitis (Acute) Abnormal imaging of central nervous system (Acute) Memory loss (Acute) DJD (degenerative joint disease) of pelvis (Chronic) Degenerative joint disease (DJD) of lumbar spine (Acute) Spondylosis of lumbar region without myelopathy or radiculopathy (Chronic) Depression (Chronic) Essential tremor (Chronic) Peripheral neuropathy (Acute) Tethered cord (Chronic) balance problem Cervical myelopathy (Acute) Primary osteoarthritis of right hip (Acute) Leg weakness (Acute) Lumbar spinal stenosis (Acute) with disc herniation Hoarding disorder (Acute) Balance problem (Acute) Dyslipidemia (Acute) Nail dystrophy (Acute) Corns and callosities (Acute) Ventral hernia (Acute) Watchful waiting Elevated BP without diagnosis of hypertension (Acute) Bilateral sensorineural hearing loss (Acute) Venous insufficiency (Acute) peripheral edema Diabetic polyneuropathy associated with type 2 diabetes mellitus (Acute) Cognitive changes (Acute) Medical History BPH (benign prostatic hypertrophy) Pancreatic lesion f/u MRI due Dec, 2022 Excessive cerumen in left ear canal [place] [facility] Chronic low back pain Shortness of breath Mechanical loosening of internal left knee prosthetic joint Pain in knee region after total knee replacement Knee pain, left Foreign body in left ear Arthritis of right shoulder region Lumbar post-laminectomy syndrome Ulnar neuropathy at elbow of left upper extremity (12/19/16) Carpal tunnel syndrome of left wrist (12/19/16) Abdominal bloating Spinal stenosis Physical deconditioning Lumbar herniated disc Leukopenia History of knee replacement Entrapment of left ulnar nerve Myofascial pain syndrome Seborrheic keratosis Fatigue Hx of carpal tunnel syndrome H/O: rheumatic fever Treadmill stress test negative for angina pectoris Surgical History H/O neck surgery History of total left knee replacement Ulnar Nerve Transposition (11/24/12) left Replacement of total knee joint Left Tonsillectomy Rotator Cuff Repair (08/12/01) Laminectomy, release of tethered cord Endoscopic Carpal Tunnel release (11/24/12) left H/O surgical procedure a. carpal tunnel b. rotator cuff c. tonsillectomy d. 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
[2024-12-29 15:40] LABS: Bilirubin Negative (Negative); Blood Moderate (Negative); Clarity Clear (Clear); Glucose >=1000 mg/dL (Negative); Ketones Negative (Negative); Leukocyte Esterase Negative (Negative); Nitrite Negative (Negative)
[2024-12-29 15:53] LABS: Bacteria Few HPF (Negative); C & S Indicated? No; Casts 0-2 Hyaline LPF (Negative); Crystals Few Amorphous HPF (Negative); Epithelial Cells Rare HPF (Negative); Mucus Trace (Negative); WBC Negative HPF (0-5)
[2024-12-29 16:07] VITALS: BP 144/79; PULSE 74; RESP 18; O2SAT 100
== END 2024-12-29 16:09 | disposition home or self-care (01) ==
PROVIDERS: Emergency Provider Emergency Medicine; PCP Nurse Practitioner Family
DX: R31.9 Hematuria, unspecified (principal); E11.40 Type 2 diabetes mellitus with diabetic neuropathy, unspecified; Z79.84 Long term (current) use of oral hypoglycemic drugs; Z79.82 Long term (current) use of aspirin; E78.5 Hyperlipidemia, unspecified
CPT/HCPCS: 99283; 81003; 81015

== ENCOUNTER → 2025-02-17 13:03 | Outpatient (BNVA) | payer MEDICARE, MEDICAID, SELFPAY | PROVIDERS: PCP Nurse Practitioner Family; Visit Provider Psychiatry & Neurology Neurology | DX: G25.0 Essential tremor (principal); M47.816 Spondylosis without myelopathy or radiculopathy, lumbar region; Q06.8 Other specified congenital malformations of spinal cord; G95.9 Disease of spinal cord, unspecified; E11.40 Type 2 diabetes mellitus with diabetic neuropathy, unspecified; M54.50 Low back pain, unspecified; M48.062 Spinal stenosis, lumbar region with neurogenic claudication; M25.551 Pain in right hip; G47.10 Hypersomnia, unspecified | CPT/HCPCS: 99214 ==

== ENCOUNTER → 2025-03-10 10:14 | Outpatient (BNVA) | payer MEDICARE, MEDICAID, SELFPAY | PROVIDERS: PCP Nurse Practitioner Family; Referring Provider Nurse Practitioner Family; Visit Provider Podiatrist | DX: L60.3 Nail dystrophy (principal); B35.1 Tinea unguium; E11.42 Type 2 diabetes mellitus with diabetic polyneuropathy; I87.2 Venous insufficiency (chronic) (peripheral); I70.203 Unspecified atherosclerosis of native arteries of extremities, bilateral legs; R09.89 Other specified symptoms and signs involving the circulatory and respiratory systems; M79.674 Pain in right toe(s); M79.675 Pain in left toe(s); R20.8 Other disturbances of skin sensation; L65.9 Nonscarring hair loss, unspecified; R60.0 Localized edema; R23.8 Other skin changes; L60.2 Onychogryphosis | CPT/HCPCS: 11719; 11720 ==

== ENCOUNTER 2025-03-29 14:21 | Emergency (ER) | payer MEDICARE, MEDICAID, SELFPAY ==
[2025-03-29 14:23] VITALS: BP 152/69; PULSE 78; RESP 18; TEMP 36.9; O2SAT 96
--- NOTE | 2025-03-29 14:30 | DI.CT_ITS ---
Exam(s) CT HEAD CERVICAL SPINE WO EXAM: CT HEAD CERVICAL SPINE WO CLINICAL HISTORY: fall, struck right ear. TECHNIQUE: Imaging Protocol: Axial computed tomography images with coronal and sagittal reformatted images were created and reviewed COMPARISON: DX XR CERVICAL SPINE 1 VIEW from 11/28/[address] BRAIN CTA from 04/23/2023 FINDINGS: Head CT Ventricles and Extra axial spaces: Normal in size and morphology for the patient's age. Hemorrhage: None. Cerebral parenchyma: No evidence of mass or acute infarct. Midline shift: None. Brainstem/Cerebellum: Normal. Calvarium: Normal. Visualized Paranasal sinuses/Mastoids: Clear. Soft tissues: Unremarkable. Cervical Spine CT BONES: Vertebral body heights are maintained. Alignment is normal. There is no evidence of acute fracture. There is anterior fusion hardware from C3 through C5. There is anterior bony bridging above and below these levels. Advanced degenerative disc changes and facet degenerative changes are seen . SOFT TISSUES: No paraspinal hematoma. The airway appears intact. No pneumothorax is seen at the lung apices. IMPRESSION: Head CT: No acute abnormality. C-spine CT: Degenerative and postsurgical changes, no acute abnormality. RADIATION DOSE DELIVERED: Total DLP DATA REPOSITORY: All CT scans at this facility are submitted to the National Radiology Data Registry (NRDR) Dose Index Registry (DIR) with the [employer] (ACR). RADIATION OPTIMIZATION: All CT scans at this facility use at least one of these dose optimization techniques: automated exposure control; mA and/or kV adjustment per patient size (includes targeted exams where dose is matched to clinical indication); or iterative reconstruction.
--- NOTE | 2025-03-29 14:32 | W.ED.GENAD ---
Discharge Plan Disposition Patient Disposition: Home Condition: Stable Discharge Details Clinical Impression: Fall, Hematoma of right parietal scalp, Abrasion of right ear Primary Care Provider: RACHEL SUAZO ED Provider: Liliana Walker Home Meds and New Rx's Prescriptions: No Action capsaicin 0.1 % cream 1 applic topical TID PRN (Reason: pain relief) Qty: 60 3RF Rx Instructions: do not wash area for at least 30 min after application albuterol sulfate 90 mcg/actuation HFA aerosol inhaler 2 puff inhalation Q6H PRN (Reason: shortness of breath or wheezing) Qty: 6.7 0RF (DME) Aerochamber MV Spacer See Rx Instructions .Route Qty: 1 0RF Rx Instructions: As directed Gemtesa 75 mg tablet 75 mg PO DAILY Myrbetriq 8 mg/mL suspension,extended rel recon PO chlorhexidine gluconate 0.12 % mouthwash 15 ml buccal BID Qty: 1200 0RF Rx Instructions: swish and spit 15ml every 12 hours diazepam 5 mg tablet 5 mg PO BID PRN propranolol 60 mg capsule,extended release 24 hr 60 mg PO DAILY Qty: 90 3RF ketoconazole 2 % cream 1 applic topical DAILY Qty: 120 6RF Rx Instructions: Apply to toenails once daily acetaminophen 325 MG tablet 650 mg PO Q4H PRN Rx Instructions: Elevated Temp/mild pain. Total daily dose not to exceed 3g daily. tramadol 50 MG tablet 50 mg PO DAILY PRN atorvastatin 20 mg Tablet 20 mg PO QPM glimepiride 4 mg tablet 8 mg PO DAILY cyclobenzaprine 10 mg tablet 5 mg PO QHS PRN aspirin 81 mg Tablet,Delayed Release (Dr/Ec) 81 mg PO DAILY Discharge Instructions Instructions: Minor Contusion ED, Skin glue for minor cuts Additional Instructions: You were seen in the emergency department today for evaluation of head injury after a fall. Did not apparently had a full physical examination performed, had a CT scan that did not show any sign of bleeding in your brain or injury to your cervical spine. You likely have bad bumps and bruises, and you did have an abrasion on your ear, which was repaired with skin glue. This area needs to be kept clean and dry, and when the skin glue falls off you can use [id number] antibiotic ointment such as Neosporin and cover it with a clean dressing. You should use Tylenol for the majority of your pain management, 1000 mg every 6 hours, and can use ibuprofen as needed for severe or worsening pain. You can use ice for swelling of the side of your head. Please follow-up with your primary care provider in the next few days to discuss this visit and any symptoms that change, worsen, or persist. Thank you for allowing us to be part of your care. HPI General Mode of arrival: EMS. Date/Time Provider Initiated Documentation: 03/29/25 14:30. Limitations to Documentation: no limitations. Information obtained by: patient, EMS and old records reviewed. HPI Narrative: This is a 75-year-old male patient, presenting for evaluation after a fall. The patient reports that he was in his normal state of health, stood up and tripped over an item on the floor in his trailer. He fell, landing with the right side of his head/ear against a car battery which was stacked in the way. He does not believe that he lost consciousness, does not take blood thinners, does take a baby aspirin. He thinks his last tetanus shot was within the last 10 years. The patient reports that he was able to get up after this event and does not think he injured any other part of his body. He has not taken any medications for management of head pain. Was in his normal state of health prior to this event and denies preceding dizziness, chest pain, or fainting episodes. EMS reports that they arrived on scene, states that the patient was able to walk and meet them at the door, did not require any intervention during transport. The patient reports that he is most concerned for subdural hematoma, and presented for evaluation of that pathology. Related Data Home Medications ?Medication ?Instructions ?Recorded ?Confirmed acetaminophen 325 mg tablet 650 mg PO Q4H PRN 01/10/18 03/29/25 tramadol 50 mg tablet 50 mg PO DAILY PRN 01/10/18 03/29/25 aspirin 81 mg tablet,delayed 81 mg PO DAILY 11/20/20 03/29/25 release atorvastatin 20 mg tablet 20 mg PO QPM 10/17/21 03/29/25 chlorhexidine gluconate 0.12 % 15 ml buccal BID #1,200 mL 02/15/23 03/29/25 mouthwash cyclobenzaprine 10 mg tablet 5 mg PO QHS PRN 03/07/23 03/29/25 Held on 03/29/25. Instructions: Pt Stopped/Never Started glimepiride 4 mg tablet 8 mg PO DAILY 03/07/23 03/29/25 capsaicin 0.1 % topical cream 1 applic topical TID PRN pain 03/08/23 03/29/25 relief #60 grams albuterol sulfate 90 mcg/actuation 2 puff inhalation Q6H PRN 10/02/23 03/29/25 aerosol inhaler shortness of breath or wheezing Held on 03/29/25. #6.7 grams Instructions: Pt Stopped/Never Started inhalational spacing device #1 ea 10/02/23 03/29/25 (Aerochamber MV spacer) vibegron 75 mg tablet (Gemtesa) 75 mg PO DAILY 01/21/24 03/29/25 Held on 03/29/25. Instructions: Pt Stopped/Never Started diazepam 5 mg tablet 5 mg PO BID PRN 11/10/24 03/29/25 Held on 03/29/25. Instructions: Pt Stopped/Never Started propranolol 60 mg capsule,24 60 mg PO DAILY #90 caps 11/10/24 03/29/25 hr,extended release mirabegron 8 mg/mL oral mg PO 12/29/24 03/10/25 suspension,extended release (Myrbetriq) ketoconazole 2 % topical cream 1 applic topical DAILY #120 grams 03/10/25 03/29/25 Previous Rx's ?Medication ?Instructions ?Recorded chlorhexidine gluconate 0.12 % 15 ml buccal BID #1,200 mL 02/15/23 mouthwash capsaicin 0.1 % topical cream 1 applic topical TID PRN pain 03/08/23 relief #60 grams albuterol sulfate 90 mcg/actuation 2 puff inhalation Q6H PRN 10/02/23 aerosol inhaler shortness of breath or wheezing Held on 03/29/25. #6.7 grams Instructions: Pt Stopped/Never Started inhalational spacing device #1 ea 10/02/23 (Aerochamber MV spacer) propranolol 60 mg capsule,24 60 mg PO DAILY #90 caps 11/10/24 hr,extended release ketoconazole 2 % topical cream 1 applic topical DAILY #120 grams 03/10/25 Allergies Allergy/AdvReac Type Severity Reaction Status Date / Time No Known Allergies Allergy Verified 03/29/25 14:32 General Stated Complaint: Fall/Non TraumaCriteria ALFRED: 3 Exam Narrative Exam Narrative: Gen: awake and alert, in no apparent distress. Appears well nourished. HEENT: Scalp atraumatic, and nontender. PERRL, EOMs full and without nystagmus. There is a skin tear/abrasion over the right pinna, hemostatic. Midface stable, no dental or tongue trauma, mucous membranes moist. Neck: Supple, full range of motion, no midline cervical spine tenderness or step-offs Lungs: No increased work of breathing, lung sounds clear and equal bilaterally without wheezes, rhonchi, or rales. CV: Heart with regular rate and rhythm, no murmurs auscultated. Strong and symmetrical radial pulses. Abdomen: Soft, nondistended, non-tender to palpation. No rigidity, rebound tenderness, or guarding. MSK: No joint swelling, no redness. Full ROM without limitation, no external traumatic findings. Chest wall stable without crepitus, pelvis stable to AP compression, T and L-spine without step-offs or tenderness. Skin: No rashes or lesions to visualized skin. Normal color, warm, and dry. Neuro: Cranial nerves II-XII intact and symmetrical bilaterally. 5/5 strength in all muscle groups x4 extremities. No sensory deficits. Ambulates with steady gait. Psych: Appropriate for situation. Course Vital Signs Vital signs: Vital Signs Temperature 36.9 C 03/29/25 14:23 Pulse 78 03/29/25 14:23 Respiratory Rate 18 03/29/25 14:23 Blood Pressure 152/69 H 03/29/25 14:23 Pulse Oximetry 96 03/29/25 14:23 Temperature 36.9 C 03/29/25 14:23 Pulse 78 03/29/25 14:23 Respiratory Rate 18 03/29/25 14:23 Blood Pressure 152/69 H 03/29/25 14:23 Pulse Oximetry 96 03/29/25 14:23 Oxygen Delivery Method Room Air 03/29/25 14:23 Oxygen Flow Rate 0 03/29/25 14:23 Pain Level 6 03/29/25 14:23 Medical Decision Making This is a 75-year-old male patient presenting for evaluation after a fall. My differential includes but is not limited to intracranial hemorrhage, skull fracture, contusion. No concussion-like symptoms at this time but though this was certainly considered. Considered laceration, cervical spine fracture. The remainder of the patient's traumatic evaluation did not show any external evidence of severe long-bone, intrathoracic, or intra-abdominal injuries. Regarding his fall, he describes a mechanical fall without history to increase my concern for arrhythmia, ACS, vasovagal syndrome, seizure, or stroke. I will provide the patient with a dose of Tylenol and obtain a CT of the head and C-spine. - I reviewed the patient's imaging, which shows no evidence of intracranial hemorrhage, mass effect, nor fracture of the skull or C-spine. On reassessment the patient reports that he is still having some tenderness, which is migrated down into the right trapezius region. I provided him with some ibuprofen now that intracranial hemorrhage has been ruled out. His abrasion on his ear was thoroughly cleansed, I do note 1/2 cm abrasion with a thin strip of skin that was peeled back. This was replaced in anatomical position and secured with skin glue. The patient was counseled on wound care and conservative pain management with Tylenol, ibuprofen, and ice. At this time, the patient has had a full medical evaluation and is safe for discharge to home. They are hemodynamically stable, ambulatory, and tolerating PO. They are understanding of the follow-up plan and return precautions. They left our facility without incident. Liliana Walker MD [facility] All Active Problems (Updated 03/29/25 @ 16:12 by Liliana Walekr MD) Abrasion of right ear (Acute) Hematoma of right parietal scalp (Acute) Fall (Acute) Radiculopathy (Acute) Bilateral tinnitus (Acute) Degenerative joint disease of right hip (Chronic) Hypersomnia (Acute) Onychomycosis (Acute) Atherosclerosis of artery of both lower extremities (Acute) Housing instability (Acute) Gastroesophageal reflux disease without esophagitis (Acute) Abnormal imaging of central nervous system (Acute) Memory loss (Acute) DJD (degenerative joint disease) of pelvis (Chronic) Degenerative joint disease (DJD) of lumbar spine (Acute) Spondylosis of lumbar region without myelopathy or radiculopathy (Chronic) Depression (Chronic) Essential tremor (Chronic) Peripheral neuropathy (Acute) Tethered cord (Chronic) balance problem Cervical myelopathy (Acute) Primary osteoarthritis of right hip (Acute) Leg weakness (Acute) Lumbar spinal stenosis (Acute) with disc herniation Hoarding disorder (Acute) Balance problem (Acute) Dyslipidemia (Acute) Nail dystrophy (Acute) Corns and callosities (Acute) Ventral hernia (Acute) Watchful waiting Elevated BP without diagnosis of hypertension (Acute) Bilateral sensorineural hearing loss (Acute) Venous insufficiency (Acute) peripheral edema Diabetic polyneuropathy associated with type 2 diabetes mellitus (Acute) Cognitive changes (Acute) Medical History Pancreatic lesion f/u MRI due Dec, 2022 Excessive cerumen in left ear canal Lacunar stroke [facility] record Chronic low back pain Shortness of breath Mechanical loosening of internal left knee prosthetic joint Pain in knee region after total knee replacement Knee pain, left Foreign body in left ear Arthritis of right shoulder region Lumbar post-laminectomy syndrome Ulnar neuropathy at elbow of left upper extremity (12/19/16) Carpal tunnel syndrome of left wrist (12/19/16) Abdominal bloating Spinal stenosis Physical deconditioning Lumbar herniated disc Leukopenia History of knee replacement Entrapment of left ulnar nerve Myofascial pain syndrome Seborrheic keratosis Fatigue Hx of carpal tunnel syndrome BPH (benign prostatic hypertrophy) H/O: rheumatic fever Treadmill stress test negative for angina pectoris Surgical History H/O neck surgery History of total left knee replacement Ulnar Nerve Transposition (11/24/12) left Replacement of total knee joint Left Tonsillectomy Rotator Cuff Repair (08/12/01) Laminectomy, release of tethered cord Endoscopic Carpal Tunnel release (11/24/12) left H/O surgical procedure a. carpal tunnel b. rotator cuff c. tonsillectomy d. 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
[2025-03-29] MEDS: Acetaminophen 500 MG TAB 1000 MG PO (14:46)
[2025-03-29] MEDS: Ibuprofen 600 MG TAB PO (16:15)
== END 2025-03-29 17:07 | disposition home or self-care (01) ==
PROVIDERS: Emergency Provider Emergency Medicine; PCP Nurse Practitioner Family
DX: S00.03XA Contusion of scalp, initial encounter (principal); S00.411A Abrasion of right ear, initial encounter; W01.198A Fall on same level from slipping, tripping and stumbling with subsequent striking against other object, initial encounter
CPT/HCPCS: 99283; 99284; 70450; 72125

== ENCOUNTER 2025-04-06 19:29 | Emergency (ER) | payer MEDICARE, MEDICAID, SELFPAY ==
[2025-04-06 19:31] VITALS: BP 136/83; PULSE 73; RESP 15; TEMP 36.3; O2SAT 98
[2025-04-06 19:35] VITALS: BP 136/83; PULSE 73; RESP 15; TEMP 36.3; O2SAT 98
--- NOTE | 2025-04-06 19:45 | DI.CT_ITS ---
Exam(s) CT FACIAL WO EXAM: CT FACIAL WO CLINICAL HISTORY: fall one week ago, right sided facial pain/bruisin. TECHNIQUE: Imaging Protocol: Axial computed tomography images with coronal and sagittal reformatted images were created and reviewed COMPARISON: CT CT BRAIN CTA from 04/23/[address] HEAD CERVICAL SPINE WO from 03/29/2025 FINDINGS: CT Face: Facial Bones: No definite fracture is noted in facial bones. The patient's anterior cervical disc fusion is partially visualized. Sinuses and Mastoids: Unremarkable. Globes, extraocular muscles, optic nerves and retrobulbar fat: Normal. Upper aerodigestive tract: Normal. Mandible and bilateral temporomandibular joints: Normal. Soft tissues: Normal. IMPRESSION: 1. No acute facial fracture. 2. The preliminary [facility] report was reviewed. RADIATION DOSE DELIVERED: 419.49mGy.cm Total DLP 419.49mGy.cm Total DLP DATA REPOSITORY: All CT scans at this facility are submitted to the National Radiology Data Registry (NRDR) Dose Index Registry (DIR) with the [employer] (A[employer]). RADIATION OPTIMIZATION: All CT scans at this facility use at least one of these dose optimization techniques: automated exposure control; mA and/or kV adjustment per patient size (includes targeted exams where dose is matched to clinical indication); or iterative reconstruction.
--- NOTE | 2025-04-06 19:57 | W.ED.GENAD ---
Discharge Plan Disposition Patient Disposition: Home Condition: Stable Discharge Details Clinical Impression: Facial bruising Primary Care Provider: RACHEL SUAZO ED Provider: Jose C Gill Home Meds and New Rx's Prescriptions: Continued capsaicin 0.1 % cream 1 applic topical TID PRN (Reason: pain relief) Qty: 60 3RF Rx Instructions: do not wash area for at least 30 min after application (DME) Aerochamber MV Spacer See Rx Instructions .Route Qty: 1 0RF Rx Instructions: As directed Myrbetriq 8 mg/mL suspension,extended rel recon PO chlorhexidine gluconate 0.12 % mouthwash 15 ml buccal BID Qty: 1200 0RF Rx Instructions: swish and spit 15ml every 12 hours propranolol 60 mg capsule,extended release 24 hr 60 mg PO DAILY Qty: 90 3RF ketoconazole 2 % cream 1 applic topical DAILY Qty: 120 6RF Rx Instructions: Apply to toenails once daily acetaminophen 325 MG tablet 650 mg PO Q4H PRN Rx Instructions: Elevated Temp/mild pain. Total daily dose not to exceed 3g daily. tramadol 50 MG tablet 50 mg PO DAILY PRN atorvastatin 20 mg Tablet 20 mg PO QPM glimepiride 4 mg tablet 8 mg PO DAILY aspirin 81 mg Tablet,Delayed Release (Dr/Ec) 81 mg PO DAILY Discontinued albuterol sulfate 90 mcg/actuation HFA aerosol inhaler 2 puff inhalation Q6H PRN (Reason: shortness of breath or wheezing) Qty: 6.7 0RF Gemtesa 75 mg tablet 75 mg PO DAILY diazepam 5 mg tablet 5 mg PO BID PRN cyclobenzaprine 10 mg tablet 5 mg PO QHS PRN Discharge Instructions Additional Instructions: Your CAT scan did not show any facial fractures. The bruising is likely moved from the scalp to your area under the right eye. this should resolve with time. Follow-up with your dentist. You can also follow-up with your primary care provider as needed. If you feel more ill or have new symptoms such as persistent vomiting return to the emergency department for reevaluation. HPI General Mode of arrival: ambulatory. Date/Time Provider Initiated Documentation: 04/06/25 19:32. Limitations to Documentation: no limitations. Information obtained by: patient. History of Present Illness 75 year old M presents to the emergency department with the chief complaint of bruising around right eye, described as mild, Patient started experiencing this day(s) (1) and it has been constant. No relieving factors improve symptom(s), No exacerbating factors reported . Patient notes denies chest pain and shortness of breath. Related Data Home Medications ?Medication ?Instructions ?Recorded ?Confirmed acetaminophen 325 mg tablet 650 mg PO Q4H PRN 01/10/18 04/06/25 tramadol 50 mg tablet 50 mg PO DAILY PRN 01/10/18 04/06/25 aspirin 81 mg tablet,delayed 81 mg PO DAILY 11/20/20 04/06/25 release atorvastatin 20 mg tablet 20 mg PO QPM 10/17/21 04/06/25 chlorhexidine gluconate 0.12 % 15 ml buccal BID #1,200 mL 02/15/23 04/06/25 mouthwash glimepiride 4 mg tablet 8 mg PO DAILY 03/07/23 04/06/25 capsaicin 0.1 % topical cream 1 applic topical TID PRN pain 03/08/23 04/06/25 relief #60 grams inhalational spacing device #1 ea 10/02/23 03/29/25 (Aerochamber MV spacer) propranolol 60 mg capsule,24 60 mg PO DAILY #90 caps 11/10/24 04/06/25 hr,extended release mirabegron 8 mg/mL oral mg PO 12/29/24 03/10/25 suspension,extended release (Myrbetriq) ketoconazole 2 % topical cream 1 applic topical DAILY #120 grams 03/10/25 04/06/25 Previous Rx's ?Medication ?Instructions ?Recorded chlorhexidine gluconate 0.12 % 15 ml buccal BID #1,200 mL 02/15/23 mouthwash capsaicin 0.1 % topical cream 1 applic topical TID PRN pain 03/08/23 relief #60 grams inhalational spacing device #1 ea 10/02/23 (Aerochamber MV spacer) propranolol 60 mg capsule,24 60 mg PO DAILY #90 caps 11/10/24 hr,extended release ketoconazole 2 % topical cream 1 applic topical DAILY #120 grams 03/10/25 Allergies Allergy/AdvReac Type Severity Reaction Status Date / Time No Known Allergies Allergy Verified 04/06/25 19:36 General Stated Complaint: EyeProblem ALFRED: 3 Review of Systems All systems reviewed & are unremarkable except as noted in HPI and below Constitutional Constitutional: Denies chills, Denies fever(s) and Denies weakness Eyes Eyes: Denies loss of vision Cardiovascular Cardiovascular: Denies chest pain and Denies dyspnea Respiratory Respiratory: Denies cough and Denies dyspnea Gastrointestinal Gastrointestinal: Denies abdominal pain and Denies vomiting Musculoskeletal Musculoskeletal: Denies joint swelling Neurologic Neurologic: Denies loss of vision and Denies weakness Exam Const General: no acute distress Orientation: alert HENTX Head: normal to inspection Ears: external ears normal General nose exam: external nose normal Mouth: moist mucous membranes Eyes Eyelids: eyelids normal Conjunctivae: conjunctivae normal Sclera: sclerae normal Pupils: PERRL Neck Neck: normal visual inspection Resp Effort & Inspection: normal respiratory effort and able to speak in complete sentences Cardio Rate: regular rate Skin General skin exam: no rashes or lesions noted Neuro General: patient alert and patient oriented x3 Extrem General: normal to inspection Psych Mental Status: mental status grossly normal Course Vital Signs Vital signs: Vital Signs Temperature 36.3 C L 04/06/25 19:31 Pulse 73 04/06/25 19:31 Respiratory Rate 15 04/06/25 19:31 Blood Pressure 136/83 04/06/25 19:31 Pulse Oximetry 98 04/06/25 19:31 Temperature 36.3 C L 04/06/25 19:35 Temperature Source Temporal Artery Scan 04/06/25 19:35 Pulse 73 04/06/25 19:35 Respiratory Rate 15 04/06/25 19:35 Blood Pressure 136/83 04/06/25 19:35 Blood Pressure Position Sitting 04/06/25 19:35 Pulse Oximetry 98 04/06/25 19:35 Oxygen Delivery Method Room Air 04/06/25 19:35 Oxygen Flow Rate 0 04/06/25 19:31 Pain Level 3 04/06/25 19:31 Medical Decision Making 75-year-old male who was seen approximately week ago after mechanical fall and where he fell and hit the right side of his head on a battery comes in with bruising around the right orbit which started today. He states that his pain in his right side of his head is improved and has not had pain in a few days. He did have some bruising on the right side of his scalp which he thinks had resolved by yesterday and then today someone pointed out that he had bruising around the right eye. Denies any changes in vision. No vomiting. He does have some mild bruising underneath the right orbit. Pupils are equal and reactive to light. He has no pain in the eye. He has very mild tenderness over the right psychometric arch. I suspect the bruising is from moving from the scalp to now under the right eye but will obtain CT facial bones to evaluate for possible facial fracture. CT shows no facial fracture, does have noted for dentition question of small periapical abscesses. He has no acute dental pain so I do not feel oral antibiotics are indicated. He will follow-up with his dentist. He is stable for discharge and return precautions given. Differential Diagnosis Differential Diagnosis: Migration of bruising, facial fracture [facility] All Active Problems (Updated 04/06/25 @ 20:59 by Jose C Gill MD) Facial bruising (Acute) Abrasion of right ear (Acute) Hematoma of right parietal scalp (Acute) Fall (Acute) Radiculopathy (Acute) Bilateral tinnitus (Acute) Degenerative joint disease of right hip (Chronic) Hypersomnia (Acute) Onychomycosis (Acute) Atherosclerosis of artery of both lower extremities (Acute) Housing instability (Acute) Gastroesophageal reflux disease without esophagitis (Acute) Abnormal imaging of central nervous system (Acute) Memory loss (Acute) DJD (degenerative joint disease) of pelvis (Chronic) Degenerative joint disease (DJD) of lumbar spine (Acute) Spondylosis of lumbar region without myelopathy or radiculopathy (Chronic) Depression (Chronic) Essential tremor (Chronic) Peripheral neuropathy (Acute) Tethered cord (Chronic) balance problem Cervical myelopathy (Acute) Primary osteoarthritis of right hip (Acute) Leg weakness (Acute) Lumbar spinal stenosis (Acute) with disc herniation Hoarding disorder (Acute) Balance problem (Acute) Dyslipidemia (Acute) Nail dystrophy (Acute) Corns and callosities (Acute) Ventral hernia (Acute) Watchful waiting Elevated BP without diagnosis of hypertension (Acute) Bilateral sensorineural hearing loss (Acute) Venous insufficiency (Acute) peripheral edema Diabetic polyneuropathy associated with type 2 diabetes mellitus (Acute) Cognitive changes (Acute) Medical History Pancreatic lesion f/u MRI due Dec, 2022 Excessive cerumen in left ear canal Lacunar stroke [facility] [place] record Chronic low back pain Shortness of breath Mechanical loosening of internal left knee prosthetic joint Pain in knee region after total knee replacement Knee pain, left Foreign body in left ear Arthritis of right shoulder region Lumbar post-laminectomy syndrome Ulnar neuropathy at elbow of left upper extremity (12/19/16) Carpal tunnel syndrome of left wrist (12/19/16) Abdominal bloating Spinal stenosis Physical deconditioning Lumbar herniated disc Leukopenia History of knee replacement Entrapment of left ulnar nerve Myofascial pain syndrome Seborrheic keratosis Fatigue Hx of carpal tunnel syndrome BPH (benign prostatic hypertrophy) H/O: rheumatic fever Treadmill stress test negative for angina pectoris Surgical History H/O neck surgery History of total left knee replacement Ulnar Nerve Transposition (11/24/12) left Replacement of total knee joint Left Tonsillectomy Rotator Cuff Repair (08/12/01) Laminectomy, release of tethered cord Endoscopic Carpal Tunnel release (11/24/12) left H/O surgical procedure a. carpal tunnel b. rotator cuff c. tonsillectomy d. 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
--- NOTE | 2025-04-06 20:51 | DI.VRAD_ITS ---
PROCEDURE INFORMATION: Exam: CT Maxillofacial Without Contrast Exam date and time: 04/06/2025 8:12 PM Age: 75 years old Clinical indication: Injury or trauma; Fall; Blunt trauma (contusions or hematomas); Cheek bone; Fal one week ago, right sided facial pain/bruising TECHNIQUE: Imaging protocol: Computed tomography of the face without contrast. COMPARISON: CT HEAD CERVICAL SPINE WO 03/29/2025 2:55 PM FINDINGS: Paranasal sinuses: The paranasal sinuses appear well aerated. No air-fluid levels are seen. Orbital cavities: The globes and intraorbital structures appear grossly intact. Teeth: There is poor dentition with multiple dental remnants despite multiple prior root canal procedures. There are periapical lucencies in the mandible and in the maxilla suggesting chronic apical periodontitis or small periapical abscesses. Bones: No acute facial fracture is seen. Of particular note, the right zygoma remains intact. Anterior cervical fixation hardware is partially visualized. Soft tissues: There is minimal asymmetric subcutaneous density in the right face, probably edema or contusion in the setting of trauma. No frankly organized fluid collection is seen. IMPRESSION: 1. No acute facial fracture seen. 2. Poor dentition, as above. Follow up with a dentist is recommended. Dictated and Authenticated by: Marck Stoner MD. Orderin Bridget Woodall MD
== END 2025-04-06 21:29 | disposition home or self-care (01) ==
PROVIDERS: Emergency Provider Emergency Medicine; PCP Nurse Practitioner Family
DX: S00.83XA Contusion of other part of head, initial encounter (principal); W19.XXXA Unspecified fall, initial encounter
CPT/HCPCS: 99284; 70486; 99283

== ENCOUNTER 2025-06-30 17:07 | Outpatient (REF) | payer MEDICARE, MEDICAID, SELFPAY ==
[2025-06-30 21:21] LABS: ALT 23 U/L (10-49); AST 23 U/L (<34); Albumin 3.6 g/dL (3.4-5.0); Alkaline Phosphatase 91 U/L (46-116); Anion Gap 6.2 mmol/L (3-11); BUN 14 mg/dL (9-23); Bilirubin, Total 0.50 mg/dL (0.2-1.2); CO2 27.8 mmol/L (20.0-31.0); Calcium 8.8 mg/dL (8.3-10.6); Chloride 108 mmol/L (98-107); Glucose 179 mg/dL (74-106); Potassium 4.5 mmol/L (3.5-5.1); Sodium 142 mmol/L (136-145); Total Protein 6.4 g/dL (5.7-8.2)
[2025-06-30 21:49] LABS: Microalb ug/mg Crea 4.0 ug/mg Cr
== END 2025-06-30 17:08 | disposition home or self-care (01) ==
LOC: NCHCN 17:07
PROVIDERS: PCP Nurse Practitioner Family; Visit Provider Nurse Practitioner Family
DX: E11.9 Type 2 diabetes mellitus without complications (principal)
CPT/HCPCS: 80053; 82043; 82570

== ENCOUNTER → 2025-07-13 13:55 | Outpatient (BNVA) | payer MEDICARE, MEDICAID, SELFPAY | PROVIDERS: PCP Nurse Practitioner Family; Referring Provider Nurse Practitioner Family; Visit Provider Podiatrist | DX: L60.3 Nail dystrophy (principal); B35.1 Tinea unguium; M79.675 Pain in left toe(s); M79.674 Pain in right toe(s); E11.42 Type 2 diabetes mellitus with diabetic polyneuropathy; I70.203 Unspecified atherosclerosis of native arteries of extremities, bilateral legs; I87.2 Venous insufficiency (chronic) (peripheral); M54.16 Radiculopathy, lumbar region; R41.89 Other symptoms and signs involving cognitive functions and awareness; L85.8 Other specified epidermal thickening; R09.89 Other specified symptoms and signs involving the circulatory and respiratory systems; R20.8 Other disturbances of skin sensation; L65.9 Nonscarring hair loss, unspecified; I83.93 Asymptomatic varicose veins of bilateral lower extremities; R60.0 Localized edema; R23.4 Changes in skin texture; L60.2 Onychogryphosis | CPT/HCPCS: 11055; 11721 ==